=== PATIENT | female | born 1945 | race Two or more races ===

== ENCOUNTER 2025-02-01 06:45 | Inpatient (IN) | payer OTHER ==
[~2025-02-01] VITALS: Ht 162.6 cm; Wt 78.6 kg
--- NOTE | 2025-02-01 07:13 | ED.PDOC ---
SOB-HPI HPI Comments 79 year old female with PMHx COPD, HTN presents to the ED with a chief compliant of shortness of breath onset 3 days. Patient states she began experiencing shortness of breath as well as cough, generalized weakness, nausea/vomiting, sweats, dizziness 3 days ago, worsened this morning. Upon ED arrival 02 sat was 90% on RA, was placed on O2. Denies fever, diarrhea, abdominal pain, headache hematuria, hematemesis, dysuria, sore throat, chest pain. No other symptoms or modifying factors present at this time. Chief Complaint: Shortness of Breath Time Seen by MD: 07:05 Reviewed notes: Medications, Allergies Information Source: Patient Mode of Arrival: Ambulatory Severity: Moderate Timing: Days Duration: Since onset Context: At Rest History of: COPD Prehospital treatment: None Modifying Factors: Nothing Associated Signs and Symptoms: Cough If cough with SOB: Non-Productive Past Medical History PAST MEDICAL HISTORY: COPD, HTN Surgical History: Hysterectomy Surgical History (Other): cataract surgery TREASURY SPECIALIST History: No Pertinent TREASURY SPECIALIST History Family History Family History: Family hx of Cancer Social History Smoker: Cigarettes Alcohol: Denies ETOH Use Drugs: Denies Drug Use Lives In: Home Constitutional: reports: sweats, weakness; denies: chills, diaphoresis, fatigue, fever, malaise, others EENTM: denies: blurred vision, double vision, ear bleeding, ear discharge, ear drainage, ear pain, ear ringing, eye pain, eye redness, hearing loss, mouth pain, mouth swelling, nasal discharge, nose bleeding, nose congestion, nose pain, photophobia, tearing, throat pain, throat swelling, voice changes, others Respiratory: reports: cough, shortness of breath; denies: hemoptysis, orthopnea, SOB at rest, SOB with excertion, stridor, wheezing, others Cardiovascular: denies: chest pain, dizzy spells, diaphoresis, Dyspnea on exertion, edema, irregular heart beat, left arm pain, lightheadedness, palpitations, PND, syncope, others Gastrointestinal: reports: nausea, vomiting; denies: abdomen distended, a bdominal pain, blood streaked bowels, constipated, diarrhea, dysphagia, difficulty swallowing, hematemesis, melena, poor appetite, poor fluid intake, rectal bleeding, rectal pain, others Genitourinary: denies: abnormal vagina bleeding, burning, dyspareunia, dysuria, flank pain, frequency, hematuria, incontinence, pain, , vagina discharge, urgency, others Neurological: reports: dizziness, weakness; denies: fainting, headache, left sided numbness, left sided weakness, numbness, paresthesia, pre-existing deficit, right sided numbness, right sided weakness, seizure, speech problems, tingling, tremors, others Musculoskeletal: denies: back pain, gout, joint pain, joint swelling, muscle pain, muscle stiffness, neck pain, others Integumetry: denies: bruises, change in color, change in hair/nails, dryness, laceration, lesions, lumps, rash, wounds, others Allergic/Immunocompromised: denies: Difficulty Healing, Frequent Infections, Hives, Itching, others Hematologic/Lymphatic: denies: anemia, blood clots, easy bleeding, easy bruising, swollen glands, others Endocrine: denies: excessive hunger, excessive sweating, excessive thirst, excessive urination, flushing, intolerance to cold, intolerance to heat, unexplained weight gain, unexplained weight loss, others Psychiatric: denies: anxiety, bipolar disorder, depression, hopeless, panic disorder, schizophrenia, sleepless, suicidal, others All Other Systems: Reviewed and Negative Physical Exam General Appearance: Moderate Distress HEENT: Normal ENT Inspection, Pharynx Normal, TMs Normal Neck: Full Range of Motion, Non-Tender, Normal, Normal Inspection Respiratory: Chest Non-Tender, Decreased Breath Sounds (Left side of the lung mcfadden), No Accessory Muscle Use, Respiratory Distress, Wheezing Cardiovascular: No Edema, No JVD, No Murmur, No Gallop, Tachycardia Breast Exam: Deferred Gastrointestinal: No Organomegaly, Non Tender, No Pulsatile Mass, Normal Bowel Sounds, Soft Genitalia: Deferred Pelvic: Deferred Rectal: Deferred Extremities: No calf tenderness, Normal capillary refill, Normal inspection, Normal range of motion, Non-tender, No pedal edema Musculoskeletal : Apperance: Normal Neurologic: Alert, field care advocate II-XII nml as Tested, No Motor Deficits, Normal Affect, Normal Mood, No Sensory Deficits Cerebellar Function: Normal Reflexes: Normal Skin: Dry, Normal Color, Warm Lymphatic: No Adenopathy EKG EKG : Pulse Rate (adult): 104 Cardiac Rhythm: ST Was a procedure done? Was a procedure done?: No Differential Dx Differential Diagnosis: Asthma, Bronchitis, CHF, COPD, Myocardial infarction, Pneumonia X-Ray, Labs, Meds, VS Vital Signs Date Time Temp Pulse Resp B/P (MAP) Pulse Ox O2 Delivery O2 Flow Rate FiO2 02/01/25 07:30 18 95 Nasal Cannula* 2 28 02/01/25 07:13 104 02/01/25 07:04 104 02/01/25 06:51 98.9 116 22 120/63 90 98.9 Lab Test 02/01/25 08:30 02/01/25 07:30 Range/Units Troponin I High Sensitivity Pending 892 *H </=34 ng/L White Blood Count 19.3 H 4.4-10.8 10^3/uL Red Blood Count 4.49 4.0-5.20 10^6/uL Hemoglobin 13.5 12.2-16.2 g/dL Hematocrit 39.3 36.0-46.0 % Mean Corpuscular Volume 87.5 80.0-100.0 fL Mean Corpuscular Hemoglobin 30.1 28.0-32.0 pg Mean Corpuscular Hemoglobin Concent 34.4 32.0-36.0 g/dL Red Cell Distribution Width 14.2 11.8-14.3 % Platelet Count 298 140-450 10^3/uL Mean Platelet Volume 8.8 6.9-10.8 fL Neutrophils (%) (Auto) 92.0 H 37.0-80.0 % Lymphocytes (%) (Auto) 3.1 L 10.0-50.0 % Monocytes (%) (Auto) 4.8 0.0-12.0 % Eosinophils (%) (Auto) 0.0 0.0-7.0 % Basophils (%) (Auto) 0.1 0.0-2.0 % Neutrophils # (Auto) 17.8 H 1.6-8.6 10 ^3/uL Lymphocytes # (Auto) 0.6 0.4-5.4 10 ^3/uL Monocytes # (Auto) 0.9 0-1.3 10 ^3/uL Eosinophils # (Auto) 0 0-0.8 10 ^3/uL Basophils # (Auto) 0 0-0.2 10 ^3/uL Nucleated Red Blood Cells 0.0 % Sodium Level 140 136-145 mmol/L Potassium Level 2.9 L 3.5-5.1 mmol/L Chloride Level 101 98-107 mmol/L Carbon Dioxide Level 27 20-31 mmol/L Anion Gap 12 5-15 Blood Urea Nitrogen 22 9-23 mg/dL Creatinine 1.19 H 0.550-1.02 mg/dL Glomerular Filtration Rate Calc 47 >90 mL/min BUN/Creatinine Ratio 18.5 10.0-20.0 Serum Glucose 140 H 74-106 mg/dL Calcium Level 9.1 8.7-10.4 mg/dL B-Type Natriuretic Peptide 406.90 0-100 pg/mL Current Medications Medications (Trade) Dose Ordered Sig/Caleb Route Start Time Stop Time Status Last Admin Methylprednisolone Sodium Succinate (Solu Medrol) 125 mg ONCE ONCE IV 02/01/25 07:15 02/01/25 07:16 DC 02/01/25 07:15 Ipratropium Gerry (Atrovent Medneb) 1 mg ONCE ONCE N 02/01/25 07:15 02/01/25 07:16 DC 02/01/25 07:29 Albuterol (Ventolin Medneb) 20 mg ONCE ONCE [facility] 02/01/25 07:15 02/01/25 07:16 DC 02/01/25 07:30 IMPRESSION: 1. Left upper and lower lung zone consolidation concerning for pneumonia in the appropriate clinical setting. The patient was given Solu-Medrol 125 mg IV push. The patient was given a continuous breathing treatment of albuterol and Atrovent. Because of the findings on the chest x-ray as well as the elevated white blood cell count of 19.3, we are starting the patient on vancomycin IV piggyback The patient is also being started on Levaquin IV piggyback The patient's 1st troponin level came back at 892 The creatinine is 1.19. The patient is hypokalemic at 2.9 The patient is being given potassium p.o. as well as a K rider to address the hypokalemia The BNP is 406.9 At this time we did do blood cultures x2 The lactic acid level is pending. After blood cultures are drawn, the patient will receive the antibiotics The patient was also given normal saline per sepsis protocol The patient will be admitted at this time. We did speak with [facility] and they have given us authorization for admission because the patient is considered to be unstable for transfer. A cardiology consult will also be obtained. The patient is also being started on Plavix 75 mg p.o. The patient has an authorization number from [facility]. The authorization #[id number] Images Reviewed?: Images reviewed and evaluated by me Time of 1ST Reevaluation: 07:35 Reevaluation 1ST: Unchanged Patient Education/Counseling: Diagnosis, Treatment, Prognosis Family Education/Counseling: No Family Present SEPSIS Sepsis Screen Date sepsis recognized/suspect: Feb 01, 2025 Time Sepsis recognized/suspect: 653 Recent Procedure: No On Antibiotic Therapy: No Respiratory Rate >20: No Heart Rate >90: No Temp<36 C (96.8 F) or >38.3 C: No SBP <90 or MAP <65 mmHG: No New Acute Mental Status Change: No Is the patient on CPAP, BIPAP,: No Physician Orders Chest Portable (02/01/25 07:09) Urinalysis (02/01/25 07:09) Heplock Iv (02/01/25 07:09) Business Resiliency Manager (02/01/25 07:09) Blood Pressure (02/01/25 07:09) Pulse Oximetry (02/01/25 07:09) Electrocardigram (02/01/25 08:09) Electrocardigram (02/01/25 10:09) Med Neb Initial Treatment (02/01/25 07:09) Troponin-I Hs (02/01/25 08:09) Troponin-I Hs (02/01/25 10:09) Aspirin Tablet (02/01/25 09:30) Potassium Chl 20meq/100ml (02/01/25 09:30) Potassium Er Tablet (Klor-Con Tablet) (02/01/25 09:30) Clopidogrel Bisulfate (Plavix) (02/02/25 10:00) Echo 2d Mode Cardiac Dop (02/01/25 09:20) Blood Culture (02/01/25:25) Lactic Acid W/ Reflex Order (02/01/25 09:25) Sodium Chloride 0.9% (02/01/25 09:30) Vancomycin (02/01/25 09:30) Levofloxacin Levaquin (02/01/25 09:30) Vital Signs Date Time Temp Pulse Resp B/P (MAP) Pulse Ox O2 Delivery O2 Flow Rate FiO2 02/01/25 07:30 18 95 Nasal Cannula* 2 28 02/01/25 07:13 104 02/01/25 07:04 104 02/01/25 06:51 98.9 116 22 120/63 90 98.9 Laboratory Tests Test 02/01/25 07:30 White Blood Count 19.3 10^3/uL (4.4-10.8) H Medications Medications Dose Ordered Sig/Caleb Route Start Time Stop Time Status Last Admin Dose Admin Albuterol 20 mg ONCE ONCE N 02/01/25 07:15 02/01/25 07:16 DC 02/01/25 07:30 Ipratropium Gerry 1 mg ONCE ONCE [facility] 02/01/25 07:15 02/01/25 07:16 DC 02/01/25 07:29 Methylprednisolone Sodium Succinate 125 mg ONCE ONCE IV 02/01/25 07:15 02/01/25 07:16 DC 02/01/25 07:15 Departure 1 Departure Time of Disposition: 09:28 Impression: Primary Impression: Sepsis Qualified Codes: A41.9 - Sepsis, unspecified organism; R65.20 - Severe sepsis without septic shock; N17.1 - Acute kidney failure with acute cortical necrosis Additional Impressions: Left lower lobe pneumonia Qualified Codes: J18.9 - Pneumonia, unspecified organism Hypokalemia Disposition: ADMITTED INPATIENT Admit to: [facility] Condition: Fair Critical Care Note Critical Care Time?: Yes (45 min-critical care time only) Stability Stability form required: Yes Unstable for transfer: Telemetry monitoring (Telemetry monitoring required), ED Physician Assesment (Clinical assesment) Heart Score Heart Score: Heart Score Response (Comments) Value History N/A 0 EKG N/A 0 Age N/A 0 Risk Factors N/A 0 Troponin N/A 0 Total 0 I personally scribed for NADIRA HOUSTON MD ([email or web address]) on 02/01/25 at 07:13. Electronically submitted by Delilah Hines ([email or web address]). I personally scribed for NADIRA HOUSTON MD ([email or web address]) on 02/01/25 at 08:36. Electronically submitted by Delilah Hines ([email or web address]). NADIRA HOUSTON MD Feb 01, 2025 07:13
[2025-02-01] MEDS: methylPREDNISolone SOD SUCC 125 MG/2 ML VL IV ONE (07:15)
--- NOTE | 2025-02-01 07:15 | ECG ---
[facility] Test Date: 2025-02-01 Test Time: 07:04:23 Pat Name: BRIT FAGAN Department: ED Room: [address] [place] [address] Gender: F Child Life Therapist: IVANA : 1945 Requested By: NADIRA HOUSTON Order Number: [id number] Reading MD: Nakul Yousif Measurements Intervals [place] Rate: 104 P: 87 OR: 131 QRS: 76 QRSD: 76 T: 71 QT: 360 QTc: 474 Interpretive Statements Sinus tachycardia Minimal ST depression, inferior leads Electronically Signed On 02-01-2025 18:01:50 PST by Nakul Yousif Please click the below link to view image of tracing.
[2025-02-01] MEDS: IPRATROPIUM BROM 0.5 MG/2.5ML INH SOL HHN ONE (07:29)
[2025-02-01] MEDS: ALBUTEROL SULF 2.5 MG/0.5ML(0.5%) NEB SOLN HHN ONE (07:30)
[2025-02-01 07:50] LABS: Hematocrit 39.3 % (36.0-46.0); Hemoglobin 13.5 g/dL (12.2-16.2); Mean Corpuscular Hemoglobin 30.1 pg (28.0-32.0); Mean Corpuscular Volume 87.5 fL (80.0-100.0); Nucleated Red Blood Cells % 0.0 %
[2025-02-01 07:55] LABS: Chloride 101 mmol/L (98-107); Sodium 140 mmol/L (136-145)
[2025-02-01 07:56] LABS: Anion Gap 12 (5-15); Calcium 9.1 mg/dL (8.7-10.4); Carbon Dioxide 27 mmol/L (20-31)
[2025-02-01 07:59] LABS: Potassium 2.9 mmol/L (3.5-5.1)
[2025-02-01 08:01] LABS: BUN/Creatinine Ratio 18.5 (10.0-20.0); Blood Urea Nitrogen 22 mg/dL (9-23)
[2025-02-01 08:02] LABS: Glucose 140 mg/dL (74-106)
--- NOTE | 2025-02-01 08:05 | DVH ---
CHEST RADIOGRAPH Indication: Shortness of breath. Technique: Single frontal view of the chest was obtained. Comparison: None FINDINGS: Lines and Tubes: None Lungs: Left upper and lower lung zones consolidation noted. Pleura: No effusion. No pneumothorax. Cardiomediastinal contours: Unremarkable Bones: No acute osseous abnormality. IMPRESSION: 1. Left upper and lower lung zone consolidation concerning for pneumonia in the appropriate clinical setting.
[2025-02-01] MEDS: POTASSIUM CHL 20MEQ/100ML 100 ML IV ONE (09:30)
[2025-02-01] MEDS: VANCOMYCIN 1GM/250ML KIT 250 ML IV ONE (09:36)
[2025-02-01] MEDS: SODIUM CHLORIDE 0.9% 1,550 ML IV ONE (09:37)
[2025-02-01 10:44] LABS: Urine Amorphous Crystal FEW /hpf (None Seen); Urine Budding Yeast OCCASIONAL /hpf (None Seen); Urine Protein, UAD 1+ (Negative)
[2025-02-01 11:04] LABS: Lactic Acid w/Reflex 6.8 mmol/L (0.4-2.0)
[2025-02-01] MEDS: POTASSIUM CHL 20 Meq TABLET PO ONE ×2 (12:20→18:20)
[2025-02-01] MEDS: NICOTINE 21MG/24 HR TOPICAL PATCH TD ONE (13:55)
[2025-02-01] MEDS ORDERED: LISI10TA34 PO (14:40)
[2025-02-01] MEDS ORDERED: CITA-73 PO (14:40)
[2025-02-01] MEDS ORDERED: MORPHINE SULFATE INJ 2 MG/ml SYRG IV PRN (14:45)
[2025-02-01] MEDS ORDERED: DOCUSATE SOD 100 MG CAP PO PRN (14:45)
[2025-02-01] MEDS ORDERED: ONDANSETRON HCL 4 MG/2 ML VIAL IV PRN (14:45)
[2025-02-01] MEDS ORDERED: NITROGLYCERIN 0.4 MG SL TAB SL PRN (14:45)
[2025-02-01 14:50] VITALS: BP 134/64; PULSE 93; RESP 30; TEMP 97.8; O2SAT 94
--- NOTE | 2025-02-01 15:24 | DVHHP2 ---
History of Present Illness Reason for Visit: Shortness of breath History of Present Illness Cindy Gibson is a 79-year-old female with past medical history of hypertension, and COPD who came to the hospital for shortness of breath. Patient states she has been becoming more fatigued over the last 3 months. Last Friday she was in her bathtub and she was too weak to get out of the tub. She had to call her son who lives on the same property but in a different house to come and help her out of the tub. He wanted her to come to the hospital at that time, but she refused. Yesterday her fatigue and shortness of breath was continuing to worsen and her family was able to convince her to go to the hospital. Cardiovascular: HTN Pulmonary: COPD Past Surgical History: Cataract Removal, Hysterectomy Smoke: 1 pack per day ALCOHOL: none Drugs: None Lives: Alone Domestic Violence: Neg Review of Systems Constitutional: Yes: Weakness, Malaise; No: Fever, Chills, Sweats, Other Eyes: No: Pain, Vision change, Conjunctivae inflammation, Eyelid inflammation, Other, Redness ENT: No: Ear pain, Ear discharge, Nose pain, Nose discharge, Nose congestion, Mouth pain, Mouth swelling, Throat pain, Throat swelling, Other Respiratory: Cough, Shortness of breath, SOB with excertion; No: Dry, Wheezing, Hemoptysis, Pleuritic Pain, Sputum, Wheezing, Other Cardiovascular: No: Chest Pain, Palpitations, Orthopnea, Paroxysmal Noc. Dyspnea, Edema, Lt Headedness, Other Gastrointestinal: No: Nausea, Vomiting, Abdominal Pain, Diarrhea, Constipation, Melena, Hematochezia, Other Genitourinary: No Dysuria, No Frequency, No Incontinence, No Hematuria, No Retention, No Other Musculoskeletal: No: other, neck pain, shoulder pain, arm pain, back pain, hand pain, leg pain, foot pain Skin: No: Rash, Lesions, Jaundice, Bruising, Other Neurological: No: Weakness, Numbness, Incoordination, Change in speech, C onfusion, Seizures, Other Allergies: Coded Allergies: Penicillins (Verified Allergy, Unknown, 02/01/25) Medications Current Medications Medications Dose Ordered Sig/Caleb Route Start Time Stop Time Status Last Admin Dose Admin Clopidogrel Bisulfate 75 mg DAILY PO 02/02/25 10:00 Acetaminophen/ Hydrocodone Bitart 1 tab Q4HP PRN PO 02/01/25 14:45 UNV Ondansetron HCl 4 mg Q4HP PRN IV 02/01/25 14:45 UNV Docusate Sodium 100 mg BIDPRN PRN PO 02/01/25 14:45 UNV Acetaminophen 650 mg Q6HP PRN PO 02/01/25 14:45 UNV Nitroglycerin 0.4 mg Q5MINP PRN SL 02/01/25 14:45 UNV Morphine Sulfate 2 mg Q30M PRN IV 02/01/25 14:45 UNV Ceftriaxone Sodium 50 ml @ 100 mls/hr DAILY@09 IV 02/02/25 09:00 UNV Azithromycin 250 ml @ 125 mls/hr DAILY IV 02/02/25 10:00 UNV Methylprednisolone Sodium Succinate 40 mg BID IV 02/01/25 22:00 UNV Ipratropium [place] 0.5 mg Q6HWA NEB 02/01/25 18:00 UNV Albuterol 2.5 mg Q6HWA NEB 02/01/25 18:00 UNV Patient Own Medication 1 tab DAILY PO 02/02/25 10:00 UNV Patient Own Medication 1 tab DAILY PO 02/02/25 10:00 UNV Exam Vital Signs Vital Signs Date Time Temp Pulse Resp B/P (MAP) Pulse Ox O2 Delivery O2 Flow Rate FiO2 02/01/25 13:35 97.8 93 30 134/63 (86) 94 97.8 02/01/25 07:30 Nasal Cannula* 2 28 General Appearance: Alert, Oriented X3, Cooperative, moderate distress HEENT: Atraumatic, PERRLA, Other (muccous membr dry) Respiratory: Other (Diminished breath sounds) Cardiovascular: Regular rate, Normal S1, Normal S2, No murmurs Abdominal: Normal bowel sounds, Soft, No tenderness Extremities: No clubbing, No cyanosis, No edema, Normal pulses, No tenderness/swelling Skin: No rashes, No breakdown, No significant lesion Neuro: Normal gait, Normal speech, Strength at 5/5 X4 ext, Normal tone Psych/Mental Status: Mental status NL, Mood NL Labs/Xrays Labs Test 02/01/25 12:05 02/01/25 10:49 02/01/25 07:30 Range/Units Lactic Acid Level 5.0 *H 0.4-2.0 mmol/L Troponin I High Sensitivity 630 *H </=34 ng/L Urine Color Light-orange Yellow Urine Clarity Turbid H Clear Urine pH 5.5 5.0-9.0 Urine Specific [place] 1.022 1.001-1.035 Urine Protein 1+ H Negative Urine Ketones Negative Negative Urine Blood 1+ H Negative /uL Urine Nitrite 1+ H Negative Urine Bilirubin Negative Negative Urine Urobilinogen Normal Negative mg/dL Urine Leukocyte Esterase Negative Negative /uL Urine RBC 1 0 - 4 /hpf Urine Microscopic WBC 3 0-5 /HPF Urine Squamous Epithelial Cells Few <5 /hpf Urine Amorphous Crystals Few None Seen /hpf Urine Bacteria Many H None Seen /hpf Urine Hyaline Casts Few 0 - 2 /lpf Urine Mucus Few None Seen Urine Yeast (Budding) Occasional None Seen /hpf Urine Glucose Normal Normal mg/dL White Blood Count 19.3 H 4.4-10.8 10^3/uL Red Blood Count 4.49 4.0-5.20 10^6/uL Hemoglobin 13.5 12.2-16.2 g/dL Hematocrit 39.3 36.0-46.0 % Mean Corpuscular Volume 87.5 80.0-100.0 fL Mean Corpuscular Hemoglobin 30.1 28.0-32.0 pg Mean Corpuscular Hemoglobin Concent 34.4 32.0-36.0 g/dL Red Cell Distribution Width 14.2 11.8-14.3 % Platelet Count 298 140-450 10^3/uL Mean Platelet Volume 8.8 6.9-10.8 fL Neutrophils (%) (Auto) 92.0 H 37.0-80.0 % Lymphocytes (%) (Auto) 3.1 L 10.0-50.0 % Monocytes (%) (Auto) 4.8 0.0-12.0 % Eosinophils (%) (Auto) 0.0 0.0-7.0 % Basophils (%) (Auto) 0.1 0.0-2.0 % Neutrophils # (Auto) 17.8 H 1.6-8.6 10 ^3/uL Lymphocytes # (Auto) 0.6 0.4-5.4 10 ^3/uL Monocytes # (Auto) 0.9 0-1.3 10 ^3/uL Eosinophils # (Auto) 0 0-0.8 10 ^3/uL Basophils # (Auto) 0 0-0.2 10 ^3/uL Nucleated Red Blood Cells 0.0 % Sodium Level 140 136-145 mmol/L Potassium Level 2.9 L 3.5-5.1 mmol/L Chloride Level 101 98-107 mmol/L Carbon Dioxide Level 27 20-31 mmol/L Anion Gap 12 5-15 Blood Urea Nitrogen 22 9-23 mg/dL Creatinine 1.19 H 0.550-1.02 mg/dL Glomerular Filtration Rate Calc 47 >90 mL/min BUN/Creatinine Ratio 18.5 10.0-20.0 Serum Glucose 140 H 74-106 mg/dL Calcium Level 9.1 8.7-10.4 mg/dL B-Type Natriuretic Peptide 406.90 0-100 pg/mL CHEST RADIOGRAPH FINDINGS: Lines and Tubes: None Lungs: Left upper and lower lung zones consolidation noted. Pleura: No effusion. No pneumothorax. Cardiomediastinal contours: Unremarkable Bones: No acute osseous abnormality. IMPRESSION: 1. Left upper and lower lung zone consolidation concerning for pneumonia in the appropriate clinical setting. SEPSIS Sepsis Screen Date sepsis recognized/suspect: Feb 01, 2025 Time Sepsis recognized/suspect: 653 Recent Procedure: No On Antibiotic Therapy: No Respiratory Rate >20: No Heart Rate >90: No Temp<36 C (96.8 F) or >38.3 C: No SBP <90 or MAP <65 mmHG: No New Acute Mental Status Change: No Is the patient on CPAP, BIPAP,: No Physician Orders Chest Portable (02/01/25 07:09) Heplock Iv (02/01/25 07:09) Whizzer Operator (02/01/25 07:09) Blood Pressure (02/01/25 07:09) Pulse Oximetry (02/01/25 07:09) Electrocardigram (02/01/25 08:09) Electrocardigram (02/01/25 10:09) Med Neb Initial Treatment (02/01/25 07:09) Clopidogrel Bisulfate (Plavix) (02/02/25 10:00) Echo 2d Mode Cardiac Dop (02/01/25 09:20) Blood Culture (02/01/25 09:25) * Cardiology Consult (02/01/25 14:33) Admit (02/01/25 14:35) Code Status (02/01/25 14:35) Hydrocodone-Acet 5/325mg Tab ([place] 5/32 (02/01/25 14:45) Ondansetron Hcl (Zofran) (02/01/25 14:45) Docusate Sodium Capsule (Colace Capsule) (02/01/25 14:45) Complete Blood Count (02/02/25 04:00) Comprehensive Metabolic Panel (02/02/25 04:00) Cardiac Diet-2gna,Lofat,Lochol (02/01/25 Dinner) Condition: Serious (02/01/25 14:35) Acetaminophen Tablet (Tylenol Tablet) (02/01/25 14:45) Nitroglycerin Sublingual (Ntrostat Subli (02/01/25 14:45) Morphine Sulfate Injection (02/01/25 14:45) Stat Ekg For Chest Pain (02/01/25 14:35) Notify Md Of Changes From Base (02/01/25 14:35) Pad Making Machine Operator For 24 Hours (02/01/25 14:35) Emergency Dysrhythmia Protocol (02/01/25 14:35) Rhythm Strips Once Every Shift (02/01/25 14:35) Oxygen By Nasal Cannula (02/01/25 14:35) Ceftriaxone 1gm/50ml (Rocephin) (02/02/25 09:00) Azithromycin 500mg/ 250ml (Zithromax 50 (02/02/25 10:00) Potassium (02/01/25 16:00) Magnesium (02/01/25 16:00) Methylprednisolone Sod Succ (Solu Medrol (02/01/25 22:00) Ipratropium Medneb (Atrovent Medneb) (02/01/25 18:00) Albuterol Medneb (Ventolin Medneb) (02/01/25 18:00) (Nf) Citalopram Hydrobromide (02/02/25 10:00) (Nf) Lisinopril (02/02/25 10:00) Vital Signs Date Time Temp Pulse Resp B/P (MAP) Pulse Ox O2 Delivery O2 Flow Rate FiO2 02/01/25 13:35 97.8 93 30 134/63 (86) 94 97.8 02/01/25 07:30 18 95 Nasal Cannula* 2 28 02/01/25 07:13 104 02/01/25 07:04 104 02/01/25 06:51 98.9 116 22 120/63 90 98.9 Laboratory Tests Test 02/01/25 07:30 02/01/25 10:03 02/01/25 12:05 White Blood Count 19.3 10^3/uL (4.4-10.8) H Lactic Acid Level 6.8 mmol/L (0.4-2.0) *H 5.0 mmol/L (0.4-2.0) *H Medications Medications Dose Ordered Sig/Caleb Route Start Time Stop Time Status Last Admin Dose Admin Albuterol 20 mg ONCE ONCE HHN 02/01/25 07:15 02/01/25 07:16 DC 02/01/25 07:30 20 MG Aspirin 162 mg ONCE ONCE PO 02/01/25 09:30 02/01/25 09:59 DC 02/01/25 09:30 162 MG Ipratropium [place] 1 mg ONCE ONCE HHN 02/01/25 07:15 02/01/25 07:16 DC 02/01/25 07:29 1 MG Levofloxacin/ Dextrose 100 ml @ 100 mls/hr ONCE ONCE IV 02/01/25 09:30 02/01/25 10:29 DC 02/01/25 09:30 100 MLS/HR Methylprednisolone Sodium Succinate 125 mg ONCE ONCE IV 02/01/25 07:15 02/01/25 07:16 DC 02/01/25 07:15 125 MG Nicotine 1 patch ONCE ONCE TD 02/01/25 13:45 02/01/25 13:46 DC 02/01/25 13:55 1 PATCH Potassium Chloride 40 meq ONCE ONCE PO 02/01/25 09:30 02/01/25 09:59 DC 02/01/25 12:20 40 MEQ Sodium Chloride 1,550 ml @ 1,550 mls/hr ONCE ONCE IV 02/01/25 09:30 02/01/25 10:29 DC 02/01/25 09:37 1,550 MLS/HR Vancomycin HCl 250 ml @ 250 mls/hr ONCE ONCE IV 02/01/25 09:30 02/01/25 10:29 DC 02/01/25 09:36 250 MLS/HR Assessment/Plan Assessment/Plan Assessment: Left lower lobe pneumonia, Elevated troponin, Hypokalemia, Hyperglycemia, Lactic acidosis, COPD, Hypertension, Plan: Admit to Tele, Cardiology consult, IV antibiotics, IV hydration, Breathing treatments, IV steroids, TSH, Lipid panel, A1c, D-dimer, Start ASA, Therapeutic Lovenox, Home medications reconciled, Plan discussed with: Patient My Orders Orders - ROBBY CHUCRHILL SERVICE TECHNICIAN Procedure Category Date Status Time * Cardiology Consult CONS 02/01/25 Transmitted 14:33 Admit ADMIT 02/01/25 Transmitted 14:35 Code Status CODE 02/01/25 Transmitted 14:35 Hydrocodone-Acet PHA 02/01/25 Logged 5/325mg Tab ([place] 14:45 Ondansetron Hcl PHA 02/01/25 Logged (Zofran) 14:45 Docusate Sodium PHA 02/01/25 Logged Capsule (Colace 14:45 Complete Blood Count LAB 02/02/25 Verified 04:00 Comprehensive LAB 02/02/25 Verified Metabolic Panel 04:00 Cardiac DIET 02/01/25 Transmitted Diet-2gna,Lofat,Lochol Dinner Condition: Serious BRIGHT 02/01/25 In Process 14:35 Acetaminophen Tablet PHA 02/01/25 Logged (Tylenol Tablet) 14:45 Nitroglycerin PHA 02/01/25 Logged Sublingual (Ntrostat 14:45 Morphine Sulfate PHA 02/01/25 Logged Injection 14:45 Stat Ekg For Chest [facility] 02/01/25 In Process Pain 14:35 Notify Of Changes [facility] 02/01/25 In Process From Base 14:35 Pad Making Machine Operator For [facility] 02/01/25 In Process 24 Hours 14:35 Emergency Dysrhythmia [facility] 02/01/25 In Process Protocol 14:35 Rhythm Strips Once [facility] 02/01/25 In Process Every Shift 14:35 Oxygen By Nasal RT 02/01/25 Transmitted Cannula 14:35 Ceftriaxone 1gm/50ml PHA 02/02/25 Logged (Rocephin) 09:00 Azithromycin 500mg/ PHA 02/02/25 Logged 250ml (Zithromax 50 10:00 Potassium LAB 02/01/25 Logged 16:00 Magnesium LAB 02/01/25 Logged 16:00 Methylprednisolone PHA 02/01/25 Logged Sod Succ (Solu Medrol 22:00 Ipratropium Medneb PHA 11/18/25 Logged (Atrovent Medneb) 18:00 Albuterol Medneb PHA 02/01/25 Logged (Ventolin Medneb) 18:00 (Nf) Citalopram PHA 02/02/25 Logged Hydrobromide 10:00 (Nf) Lisinopril PHA 02/02/25 Logged 10:00 Date of Service: Feb 01, 2025 Billing Provider: ROBBY CHURCHILL Common Visit Codes: [id number] INP/OBS CARE (HIGH) ROBBY CHURCHILL Feb 01, 2025 15:24
[2025-02-01] MEDS: SODIUM CHLORIDE 0.9% 1,000 ML IV ONE (15:30)
[2025-02-01 15:47] LABS: Triglycerides 91 mg/dL (< 150)
[2025-02-01 15:50] LABS: Cholesterol 124 mg/dL (< 200); HDL Cholesterol 46 mg/dL (40-59)
--- NOTE | 2025-02-01 15:50 | DVH ---
Exam: CT CHEST WITHOUT CONTRAST Reason for study/Clinical History: Shortness of breath, hypoxic Comparison Study: XY CHEST PORTABLE on DOS: 02/01/25 Exam Date: 02/01/2025 03:21 PM TECHNIQUE: Multidetector CT of the chest was performed from the lung apices to the upper abdomen without the use of intravenous contract. Axial, coronal and sagittal multiplanar reformats were performed. Radiation Dose Information: CT Dose: CTDI volume is 12.8 mGy. Dose-length product is 502 mGy*cm The dose indicators for CT are the volume Computed Tomography (CT) Dose Index (CTDIvol) and the Dose Length Product (DLP), and are measured in units of mGy and mGy-cm, respectively. These indicators are not patient dose, but values generated from the CT scanner acquisition factors. The report includes radiation exposure data for exposures received during this examination. Findings: Lower neck: Unremarkable. Lungs and Pleura: Severe upper lung predominant emphysema. Diffuse left lower lobe opacities and consolidation.. Trace left pleural effusion. Lymph nodes: No mediastinal, hilar, or axillary lymphadenopathy. Cardiovascular and Mediastinum: Trace pericardial effusion. Scattered coronary calcifications. Osseous and soft tissues: No suspicious osseous lesions. Appearing cortical step-off of in the mid-sternum, likely artifactual. Upper abdomen: No acute abnormality in the visualized upper abdomen. Few subcentimeter hypodense lesions in the liver, too small to characterize. Small hiatal hernia. IMPRESSION: Diffuse left lower lobe opacities and consolidation with trace left pleural effusion. Findings are concerning for pneumonia. Severe upper lung predominant emphysema. Trace pericardial effusion. Appearing cortical step-off of in the mid-sternum, likely artifactual. Correlate with focal tenderness.
--- NOTE | 2025-02-01 16:11 | DVHINCON2 ---
Date Seen: Feb 01, 2025 Referring Physician JO Khan Reason for Consultation Elevated trop History of Present Illness This is a 79-year-old female who presented to the emergency room with a chief complaint of shortness of breath for two days. The patient complains of progressive shortness of breath associated with a nonproductive cough and generalized weakness. Denies chest pain, palpitations, diaphoresis, or syncopal events. Upon arrival to the emergency room he was found with a oxygen saturation level of 90% for which she was provided with supplemental oxygenation. During ED admission the patient has gone outside to smoke cigarettes. Significant medical history includes COPD without home O2 dependence, hypertension, thyroid disease, and current cigarette use including 65 pack-years. Past Medical History Past medical history reviewed. No other significant than mentioned above. Past Surgical History Partial hysterectomy Cataract removal Family History Family history reviewed. Not significant for cardiovascular disease. Social History Denies the use of illicit drugs or alcohol. Admits to tobacco use, one pack of cigarettes per day. Allergies: Coded Allergies: Penicillins (Verified Allergy, Unknown, 02/01/25) Home Meds Reported Medications Lisinopril (Lisinopril) 10 Mg Tab, 1 TAB PO DAILY 02/01/25 Citalopram Hydrobromide (Citalopram Hydrobromide) 40 Mg Tab, 1 TAB PO DAILY 02/01/25 Home Meds Home medications reviewed. Current Medications Current Medications Medications (Trade) Dose Ordered Sig/Caleb Route PRN Reason Start Time Stop Time Status Last Admin Clopidogrel Bisulfate (Plavix) 75 mg DAILY PO 02/02/25 10:00 Acetaminophen/ Hydrocodone Bitart ([place] 5/325MG Tab) 1 tab Q4HP PRN PO MODERATE PAIN (4-6 PAIN SCALE) 02/01/25 14:45 Ondansetron HCl (Zofran) 4 mg Q4HP PRN IV NAUSEA / VOMITING 02/01/25 14:45 Docusate Sodium (Colace Capsule) 100 mg BIDPRN PRN PO FOR CONSTIPATION 02/01/25 14:45 Acetaminophen (Tylenol Tablet) 650 mg Q6HP PRN PO PAIN SCALE 1-3 OR TEMP>100.4 02/01/25 14:45 Nitroglycerin (Ntrostat Sublingual) 0.4 mg Q5MINP PRN SL FOR CHEST PAIN 02/01/25 14:45 Morphine Sulfate 2 mg Q30M PRN IV FOR CHEST PAIN 02/01/25 14:45 Ceftriaxone Sodium 50 ml @ 100 mls/hr DAILY@09 IV 02/02/25 09:00 UNV Azithromycin 250 ml @ 125 mls/hr DAILY IV 02/02/25 10:00 Methylprednisolone Sodium Succinate (Solu Medrol) 40 mg BID IV 02/01/25 22:00 Ipratropium [place] (Atrovent Medneb) 0.5 mg Q6HWA [facility] 02/01/25 18:00 Albuterol (Ventolin Medneb) 2.5 mg Q6HWA [facility] 02/01/25 18:00 Citalopram Hydrobromide (CeleXA TABLET) 40 mg DAILY PO 02/02/25 10:00 Lisinopril (Zestril Tablet) 10 mg DAILY PO 02/02/25 10:00 Aspirin 81 mg DAILY PO 02/02/25 10:00 Enoxaparin Sodium (Lovenox) 60 mg Q12HR SC 02/01/25 22:00 Review of Systems Constitutional: Generalized weakness Ears, Nose, & Throat: No symptom reported Eyes: No symptom reported Neurological: No symptoms reported Pulmonary/Respiratory: SOB, nonproductive cough Cardiovascular: No symptom reported Gastrointestinal: No symptom reported Genitourinary: No symptom reported Musculoskeletal: No symptom reported Skin: No symptom reported Psychiatric: No symptom reported Endocrine: No symptom reported Hemotologic/Lymphatic: No symptom reported Vital Signs Vital Signs Date Time Temp Pulse Resp B/P (MAP) Pulse Ox O2 Delivery O2 Flow Rate FiO2 02/01/25 14:50 97.8 93 30 134/64 94 2.0 97.8 02/01/25 07:30 Nasal Cannula* 28 Physical Exam General Appearance: Cooperative. Well developed. Well nourished. In no acute distress Head Exam: Normal inspection Neck Exam: Normal inspection. Non-tender. Normal alignment Pulmonary/Respiratory: Chest non-tender. Coarse sounds to left middle/lower delia Cardiovascular/Chest: Regular rate and rhythm. S1, S2. No murmurs. No JVD. Peripheral Pulses: 2+ Radial (R). 2+ Radial (L). 2+ Pedal (R). 2+ Pedal (L) Abdominal Exam: Normal bowel sounds Ankle Exam: Negative ankle edema Lower extremities: Negative lower extremity edema Neuro/Mental Status: A&O x4. Coherent Thoughts/Psych: Normal thought pattern. Appropriate mood and affect. Good judgement and insight Appearance: In no acute distress Skin Exam: Normal inspection. Normal color. Warm. Dry Labs/Diagnostic Data Labs Test 02/01/25 12:05 02/01/25 10:49 02/01/25 07:30 Range/Units D-Dimer, Quantitative 2.74 H 0.0-0.49 mg/L FEU Lactic Acid Level 5.0 *H 0.4-2.0 mmol/L Troponin I High Sensitivity 630 *H </=34 ng/L Urine Color Light-orange Yellow Urine Clarity Turbid H Clear Urine pH 5.5 5.0-9.0 Urine Specific [place] 1.022 1.001-1.035 Urine Protein 1+ H Negative Urine Ketones Negative Negative Urine Blood 1+ H Negative /uL Urine Nitrite 1+ H Negative Urine Bilirubin Negative Negative Urine Urobilinogen Normal Negative mg/dL Urine Leukocyte Esterase Negative Negative /uL Urine RBC 1 0 - 4 /hpf Urine Microscopic WBC 3 0-5 /HPF Urine Squamous Epithelial Cells Few <5 /hpf Urine Amorphous Crystals Few None Seen /hpf Urine Bacteria Many H None Seen /hpf Urine Hyaline Casts Few 0 - 2 /lpf Urine Mucus Few None Seen Urine Yeast (Budding) Occasional None Seen /hpf Urine Glucose Normal Normal mg/dL White Blood Count 19.3 H 4.4-10.8 10^3/uL Red Blood Count 4.49 4.0-5.20 10^6/uL Hemoglobin 13.5 12.2-16.2 g/dL Hematocrit 39.3 36.0-46.0 % Mean Corpuscular Volume 87.5 80.0-100.0 fL Mean Corpuscular Hemoglobin 30.1 28.0-32.0 pg Mean Corpuscular Hemoglobin Concent 34.4 32.0-36.0 g/dL Red Cell Distribution Width 14.2 11.8-14.3 % Platelet Count 298 140-450 10^3/uL Mean Platelet Volume 8.8 6.9-10.8 fL Neutrophils (%) (Auto) 92.0 H 37.0-80.0 % Lymphocytes (%) (Auto) 3.1 L 10.0-50.0 % Monocytes (%) (Auto) 4.8 0.0-12.0 % Eosinophils (%) (Auto) 0.0 0.0-7.0 % Basophils (%) (Auto) 0.1 0.0-2.0 % Neutrophils # (Auto) 17.8 H 1.6-8.6 10 ^3/uL Lymphocytes # (Auto) 0.6 0.4-5.4 10 ^3/uL Monocytes # (Auto) 0.9 0-1.3 10 ^3/uL Eosinophils # (Auto) 0 0-0.8 10 ^3/uL Basophils # (Auto) 0 0-0.2 10 ^3/uL Nucleated Red Blood Cells 0.0 % Sodium Level 140 136-145 mmol/L Potassium Level 2.9 L 3.5-5.1 mmol/L Chloride Level 101 98-107 mmol/L Carbon Dioxide Level 27 20-31 mmol/L Anion Gap 12 5-15 Blood Urea Nitrogen 22 9-23 mg/dL Creatinine 1.19 H 0.550-1.02 mg/dL Glomerular Filtration Rate Calc 47 >90 mL/min BUN/Creatinine Ratio 18.5 10.0-20.0 Serum Glucose 140 H 74-106 mg/dL Calcium Level 9.1 8.7-10.4 mg/dL B-Type Natriuretic Peptide 406.90 0-100 pg/mL Assessment Sepsis with left-sided pneumonia/UTI Acute on chronic hypoxic respiratory failure NSTEMI, likely type 2 secondary to above Rule out structural heart disease COPD without home O2 dependence Nicotine dependence Hypertension Thyroid disease * Transthoracic echocardiogram completed, pending reading. Preliminary, optimal LV function with mild PAH * Twelve lead electrocardiogram x1 revealed a sinus tachycardia rhythm at 104 bpm with minimal inferior lead changes * Troponin levels peaked at 800s ng/L now trending down Plan/Recommendation (Dr. Rock) The patient is cardiac asymptomatic. Likely NSTEMI type 2 secondary to sepsis given pneumonia and UTI. Transthoracic echocardiogram has been completed and is pending reading at this time. Continue ABX therapy and sepsis protocol per primary care team. Obtain COVID-19 and influenza A&B samples. Initiate Nicotine patch and smoking cessation consult. In the setting of an unremarkable TTE, there is no further cardiac work-up indicated. Kindly call with any questions or concerns. Thank you for allowing us to participate in this patient's care. This medical document was created using an electronic medical record system with voice recognition software and computerized dictation system. Although this document has been carefully reviewed, there might still be some phonetic and typographical errors. Occasional wrong-word or ``sound-alike substitutions may have occurred due to the inherent limitations of voice recognition software. These areas are purely typographical due to imperfections of the software programs and do not reflect any compromise in the patient's medical care. Please read the chart carefully and recognize, using context, where these substitutions have occurred. Plan discussed with: Patient, Other NYHA Physical activity limitations: NA Date of Service: Feb 01, 2025 Billing Provider: DALLAS BALDERAS Cardiology Common Codes: [id number] INP/OBS CARE (High) DALLAS BALDERAS BABBITT SPINNER Feb 01, 2025 16:11
[2025-02-01 16:40] LABS: Potassium 3.2 mmol/L (3.5-5.1)
[2025-02-01 16:45] LABS: Magnesium 1.8 mg/dL (1.6-2.6)
[2025-02-01] MEDS: MAGNESIUM SULFATE 1GM/100ML 100 ML IV SCH (18:40)
[2025-02-01] MEDS: ALBUTEROL SULF 2.5 MG/0.5ML(0.5%) NEB SOLN NEB SCH (19:51)
[2025-02-01] MEDS: IPRATROPIUM BROM 0.5 MG/2.5ML INH SOL NEB SCH (19:51)
[2025-02-01 19:52] VITALS: PULSE 84; RESP 21; O2SAT 96
[2025-02-01 20:10] VITALS: PULSE 81; RESP 25
[2025-02-01 20:58] LABS: COVID19 ANTIGEN SOFIA FIA NEGATIVE (NEGATIVE)
[2025-02-01] MEDS: methylPREDNISolone SOD SUCC 40 MG/ML VL IV SCH (22:08)
[2025-02-01] MEDS: ENOXAPARIN SOD 60 MG/0.6 ML SYRINGE SC SCH (22:08)
--- NOTE | 2025-02-01 23:18 | DVHINCON2 ---
Date Seen: Feb 01, 2025 Referring Physician JO Khan Reason for Consultation Elevated trop History of Present Illness This is a 79-year-old female who with a past medical history of COPD without home O2 dependence, hypertension, thyroid disease, and current cigarette use including 65 pack-years presented to the emergency room with a complaint of shortness of breath for two days. The patient complains of progressive sh ortness of breath associated with a nonproductive cough and generalized weakness. Denies chest pain, palpitations, diaphoresis, or syncopal events. Upon arrival to the emergency room he was found with a oxygen saturation level of 90% for which she was provided with supplemental oxygenation. During ED admission the patient has gone outside to smoke cigarettes. WBC 19.3, D-DIMER 2. 74, K 3.2, TROP 630, LA 5. Chest x-ray shows left upper and lower lung zone consolidation concerning for pneumonia in the appropriate clinical setting. Patient was admitted to the hospital. I am asked to consult on this patient. Past Medical History Past medical history reviewed. No other significant than mentioned above. Past Surgical History Partial hysterectomy Cataract removal Allergies: Coded Allergies: Penicillins (Verified Allergy, Unknown, 02/01/25) Home Meds Reported Medications Lisinopril (Lisinopril) 10 Mg Tab, 1 TAB PO DAILY 02/01/25 Citalopram Hydrobromide (Citalopram Hydrobromide) 40 Mg Tab, 1 TAB PO DAILY 02/01/25 Current Medications Current Medications Medications (Trade) Dose Ordered Sig/Caleb Route PRN Reason Start Time Stop Time Status Last Admin Clopidogrel Bisulfate (Plavix) 75 mg DAILY PO 02/02/25 10:00 Acetaminophen/ Hydrocodone Bitart ([place] 5/325MG Tab) 1 tab Q4HP PRN PO MODERATE PAIN (4-6 PAIN SCALE) 02/01/25 14:45 Ondansetron HCl (Zofran) 4 mg Q4HP PRN IV NAUSEA / VOMITING 02/01/25 14:45 Docusate Sodium (Colace Capsule) 100 mg BIDPRN PRN PO FOR CONSTIPATION 02/01/25 14:45 Acetaminophen (Tylenol Tablet) 650 mg Q6HP PRN PO PAIN SCALE 1-3 OR TEMP>100.4 02/01/25 14:45 Nitroglycerin (Ntrostat Sublingual) 0.4 mg Q5MINP PRN SL FOR CHEST PAIN 02/01/25 14:45 Morphine Sulfate 2 mg Q30M PRN IV FOR CHEST PAIN 02/01/25 14:45 Ceftriaxone Sodium 50 ml @ 100 mls/hr DAILY@09 IV 02/02/25 09:00 UNV Azithromycin 250 ml @ 125 mls/hr DAILY IV 02/02/25 10:00 Methylprednisolone Sodium Succinate (Solu Medrol) 40 mg BID IV 02/01/25 22:00 Ipratropium [place] (Atrovent Medneb) 0.5 mg Q6HWA NEB 02/01/25 18:00 Albuterol (Ventolin Medneb) 2.5 mg Q6HWA NEB 02/01/25 18:00 Citalopram Hydrobromide (CeleXA TABLET) 40 mg DAILY PO 02/02/25 10:00 Lisinopril (Zestril Tablet) 10 mg DAILY PO 02/02/25 10:00 Aspirin 81 mg DAILY PO 02/02/25 10:00 Enoxaparin Sodium (Lovenox) 60 mg Q12HR SC 02/01/25 22:00 Nicotine (Nicoderm 14MG/ 24HR) 1 patch DAILY TD 02/02/25 10:00 Review of Systems Constitutional: Generalized weakness Ears, Nose, & Throat: No symptom reported Eyes: No symptom reported Neurological: No symptoms reported Pulmonary/Respiratory: SOB, nonproductive cough Cardiovascular: No symptom reported Gastrointestinal: No symptom reported Genitourinary: No symptom reported Musculoskeletal: No symptom reported Skin: No symptom reported Psychiatric: No symptom reported Endocrine: No symptom reported Hemotologic/Lymphatic: No symptom reported Vital Signs Vital Signs Date Time Temp Pulse Resp B/P (MAP) Pulse Ox O2 Delivery O2 Flow Rate FiO2 02/01/25 14:50 97.8 93 30 134/64 94 2.0 97.8 02/01/25 07:30 Nasal Cannula* 28 Physical Exam GENERAL: Alert and oriented x 3. No acute distress. EYES: PERRL, EOMI. Anicteric. HENT: Moist mucous membranes. LUNGS: Coarse breath sounds. CARDIOVASCULAR: Regular rate and rhythm. ABDOMEN: Soft, nontender and nondistended. EXTREMITIES: No edema. NEUROLOGIC: No focal neurological deficits. SKIN: Warm, dry. Labs/Diagnostic Data Labs Test 02/01/25 16:03 02/01/25 12:05 02/01/25 10:49 02/01/25 07:30 Range/Units Potassium Level 3.2 L 3.5-5.1 mmol/L Magnesium Level 1.8 1.6-2.6 mg/dL D-Dimer, Quantitative 2.74 H 0.0-0.49 mg/L FEU Lactic Acid Level 5.0 *H 0.4-2.0 mmol/L Troponin I High Sensitivity 630 *H </=34 ng/L Triglycerides Level 91 < 150 mg/dL Cholesterol Level 124 < 200 mg/dL LDL Cholesterol 57 < 100 mg/dL HDL Cholesterol 46 40-59 mg/dL Thyroid Stimulating Hormone (TSH) 0.71 0.55-4.78 uIU/mL Urine Color Light-orange Yellow Urine Clarity Turbid H Clear Urine pH 5.5 5.0-9.0 Urine Specific [place] 1.022 1.001-1.035 Urine Protein 1+ H Negative Urine Ketones Negative Negative Urine Blood 1+ H Negative /uL Urine Nitrite 1+ H Negative Urine Bilirubin Negative Negative Urine Urobilinogen Normal Negative mg/dL Urine Leukocyte Esterase Negative Negative /uL Urine RBC 1 0 - 4 /hpf Urine Microscopic WBC 3 0-5 /HPF Urine Squamous Epithelial Cells Few <5 /hpf Urine Amorphous Crystals Few None Seen /hpf Urine Bacteria Many H None Seen /hpf Urine Hyaline Casts Few 0 - 2 /lpf Urine Mucus Few None Seen Urine Yeast (Budding) Occasional None Seen /hpf Urine Glucose Normal Normal mg/dL White Blood Count 19.3 H 4.4-10.8 10^3/uL Red Blood Count 4.49 4.0-5.20 10^6/uL Hemoglobin 13.5 12.2-16.2 g/dL Hematocrit 39.3 36.0-46.0 % Mean Corpuscular Volume 87.5 80.0-100.0 fL Mean Corpuscular Hemoglobin 30.1 28.0-32.0 pg Mean Corpuscular Hemoglobin Concent 34.4 32.0-36.0 g/dL Red Cell Distribution Width 14.2 11.8-14.3 % Platelet Count 298 140-450 10^3/uL Mean Platelet Volume 8.8 6.9-10.8 fL Neutrophils (%) (Auto) 92.0 H 37.0-80.0 % Lymphocytes (%) (Auto) 3.1 L 10.0-50.0 % Monocytes (%) (Auto) 4.8 0.0-12.0 % Eosinophils (%) (Auto) 0.0 0.0-7.0 % Basophils (%) (Auto) 0.1 0.0-2.0 % Neutrophils # (Auto) 17.8 H 1.6-8.6 10 ^3/uL Lymphocytes # (Auto) 0.6 0.4-5.4 10 ^3/uL Monocytes # (Auto) 0.9 0-1.3 10 ^3/uL Eosinophils # (Auto) 0 0-0.8 10 ^3/uL Basophils # (Auto) 0 0-0.2 10 ^3/uL Nucleated Red Blood Cells 0.0 % Sodium Level 140 136-145 mmol/L Chloride Level 101 98-107 mmol/L Carbon Dioxide Level 27 20-31 mmol/L Anion Gap 12 5-15 Blood Urea Nitrogen 22 9-23 mg/dL Creatinine 1.19 H 0.550-1.02 mg/dL Glomerular Filtration Rate Calc 47 >90 mL/min BUN/Creatinine Ratio 18.5 10.0-20.0 Serum Glucose 140 H 74-106 mg/dL Hemoglobin A1c 5.6 <5.7 % A1C Calcium Level 9.1 8.7-10.4 mg/dL B-Type Natriuretic Peptide 406.90 0-100 pg/mL Assessment Sepsis with left-sided pneumonia/UTI. Acute on chronic hypoxic respiratory failure. NSTEMI, likely type 2 secondary to above. Rule out structural heart disease. 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 Nicotine dependence. Hypertension. Thyroid disease. Plan/Recommendation I agree with your ongoing assessment and care of plan. Patient has been seen by Bisi Ho NP on my behalf, her and I discussed the plan with the patient. Transthoracic echocardiogram completed, pending reading. Preliminary, optimal LV function with mild PAH. Twelve lead electrocardiogram x1 revealed a sinus tachycardia rhythm at 104 bpm with minimal inferior lead changes. Troponin levels peaked at 800s ng/L now trending down. The patient is cardiac asymptomatic. Likely NSTEMI type 2 secondary to sepsis given pneumonia and UTI. Transthoracic echocardiogram has been completed and is pending reading at this time. Continue ABX therapy and sepsis protocol per primary care team. Obtain COVID-19 and influenza A&B samples. Initiate Nicotine patch and smoking cessation consult. In the setting of an unremarkable TTE, there is no further cardiac work-up indicated. Additional plan as per the hospital course. Plan discussed with: Patient NYHA Physical activity limitations: NA Date of Service: Feb 01, 2025 Billing Provider: CORY ABDULLAHI MD Cardiology Common Codes: [id number] INP/OBS CARE (High) Cardiology Consultation Codes: [id number] CONSULT <45MIN CORY ABDULLAHI MD Feb 01, 2025 16:56
[2025-02-02] VITALS (15 sets, daily range): BP systolic 132–133; BP diastolic 71–80; PULSE 71–81; RESP 12–22; TEMP 97.8–98.1; O2SAT 95–99
[2025-02-02 06:54] LABS: Hematocrit 33.5 % (36.0-46.0); Hemoglobin 11.3 g/dL (12.2-16.2); Mean Corpuscular Hemoglobin 29.5 pg (28.0-32.0); Mean Corpuscular Volume 87.4 fL (80.0-100.0); Nucleated Red Blood Cells % 0.1 %
[2025-02-02 07:00] LABS: Alanine Aminotransferase 19 U/L (7-40); Anion Gap 7 (5-15); BUN/Creatinine Ratio 18.9 (10.0-20.0); Blood Urea Nitrogen 17 mg/dL (9-23); Carbon Dioxide 28 mmol/L (20-31); Chloride 106 mmol/L (98-107); Glucose 101 mg/dL (74-106); Magnesium 2.5 mg/dL (1.6-2.6); Potassium 4.3 mmol/L (3.5-5.1); Sodium 141 mmol/L (136-145)
[2025-02-02 07:01] LABS: Bilirubin, Total 0.3 mg/dL (0.2-1.0)
[2025-02-02 07:04] LABS: Albumin 3.1 g/dL (3.2-4.8); Alkaline Phosphatase 125 U/L (46-116); Calcium 8.5 mg/dL (8.7-10.4); Total Protein 5.7 g/dL (5.7-8.2)
[2025-02-02] MEDS: NICOTINE 14 MG/24HR TOPICAL PATCH TD SCH (10:54)
[2025-02-02] MEDS: CLOPIDOGREL BISULFATE 75 MG TAB PO SCH (10:55)
[2025-02-02] MEDS: LISINOPRIL 5 MG TAB PO SCH (10:55)
[2025-02-02] MEDS: CITALOPRAM HYDROBR 20 MG TAB PO SCH (10:55)
--- NOTE | 2025-02-02 11:25 | DVHSR ---
APPROVED REPORT EXAM: Two-dimensional and M-mode echocardiogram with Doppler and color Doppler. Blood Pressure: 120/63 mmHg INDICATION LV assessment RISK FACTORS Height: 5'3", Weight: 140 DIMENSIONS LVDd 3.9 (3.8-5.7cm) LA (2D) 3.5 (1.9-4.0cm) Aortic Root (2.0-3.7cm) LVDs 1.8 (2.5-4.0cm) LA (MM) (1.9-4.0cm) Aortic Cusp Exc (1.5-2.0cm) EF (%) 85.0 (55-70%) Rt. Atrium 3.7 (1.9-4.0cm) Asc. Aorta cm IVSd 0.8 (0.7-1.1cm) RV (D) (1.8-2.4cm) Mitral Valve Mitral Mitral Stenosis E/A ratio 0.0 2D MVA cm2 Aortic Valve Aortic Valve Aortic Stenosis V1 1.34m/s AO Mean GR. mmHg V2 1.65m/s AO Peak GR. 11mmHg LVOT Diameter 2.0 (1.8-2.4cm) Doppler JESSIE 2.55cm2 Tricuspid Valve TR Velocity 2.84m/s RVSP 40mmHg Other Information Quality : Technically Limited Rhythm : Technically limited study due to body habitus. Conclusion NORMAL LV EF AND IS 75% NORMAL VALVES NORMAL RV FUNCTION NO EFFUSION
[2025-02-02] MEDS: AZITHROMYCIN 500MG/250ML 250 ML IV SCH (12:06)
--- NOTE | 2025-02-02 12:24 | DVHPN2 ---
Progress Note Date Seen: Feb 02, 2025 Medical Necessity Reason Pt with a Central, PICC or Fol: No Subjective Patient reports: No new complaints Review of Systems: HEENT:Normal, CVS:Normal, RESPIRATORY:Normal, GI:Normal, :Normal, MSK:Normal, NEURO:Normal Objective vital signs Vital Sign Date Time Temp Pulse Resp B/P (MAP) Pulse Ox O2 Delivery O2 Flow Rate FiO2 02/02/25 10:55 127/77 02/02/25 10:00 92 21 90 02/02/25 08:00 Nasal Cannula* 1 24 02/02/25 08:00 97.6 97.6 Total Intake and Output 02/01/25 02/01/25 02/02/25 15:00 23:00 07:00 Intake Total 200 ml Balance 200 ml medications Current Medications Medications Dose Ordered Sig/Caleb Route Start Time Stop Time Status Last Admin Dose Admin Clopidogrel Bisulfate 75 mg DAILY PO 02/02/25 10:00 02/02/25 10:55 75 MG Acetaminophen/ Hydrocodone Bitart 1 tab Q4HP PRN PO 02/01/25 14:45 Ondansetron HCl 4 mg Q4HP PRN IV 02/01/25 14:45 Docusate Sodium 100 mg BIDPRN PRN PO 02/01/25 14:45 Acetaminophen 650 mg Q6HP PRN PO 02/01/25 14:45 Nitroglycerin 0.4 mg Q5MINP PRN SL 02/01/25 14:45 Morphine Sulfate 2 mg Q30M PRN IV 02/01/25 14:45 Ceftriaxone Sodium 50 ml @ 100 mls/hr DAILY@09 IV 02/02/25 09:00 02/02/25 10:53 100 MLS/HR Azithromycin 250 ml @ 125 mls/hr DAILY IV 02/02/25 10:00 02/02/25 12:06 125 MLS/HR Methylprednisolone Sodium Succinate 40 mg BID IV 02/01/25 22:00 02/02/25 10:54 40 MG Ipratropium [place] 0.5 mg Q6HWA NEB 02/01/25 18:00 02/02/25 06:31 0.5 MG Albuterol 2.5 mg Q6HWA NEB 02/01/25 18:00 02/02/25 06:31 2.5 MG Citalopram Hydrobromide 40 mg DAILY PO 02/02/25 10:00 02/02/25 10:55 40 MG Lisinopril 10 mg DAILY PO 02/02/25 10:00 02/02/25 10:55 10 MG Aspirin 81 mg DAILY PO 02/02/25 10:00 02/02/25 10:55 81 MG Enoxaparin Sodium 60 mg Q12HR SC 02/01/25 22:00 02/02/25 12:09 60 MG Nicotine 1 patch DAILY TD 02/02/25 10:00 02/02/25 10:54 1 PATCH Examination: GENERAL:Normal, HEENT:Normal, NECK:Normal, LUNGS:Normal, LUNGS:Abnormal (on oxygen, rales left side), CVS:Normal, ABDOMEN:Normal, MSK:Normal, SKIN:Normal, NEURO:Normal, :Normal laboratory and microbiology Laboratory Tests 02/02/25 05:21 Test 02/02/25 05:21 Range/Units Serum Glucose 101 74-106 mg/dL Microbiology Date/Time Source Procedure Growth Status 02/01/25 10:14 Blood Blood Culture - Preliminary NO GROWTH AFTER 24 HOURS OF INCUBATION. Resulted Problem List/Assessment/Plan Problem List/Assessment/Plan #1 acute resp failure: cont oxygen #2 sepsis with left pneumonia- gram positive/neg: iv antibiotics #3 copd with exacerbation : bronchodilators #4 htn #5 tobacco abuse: advised to quit, nicotine patch- time spent 12 mins #6 nstemi ?type 2: per cardiology #7 hypokalemia: improved advance care planning- full code- time spent 18 mins unstable for transfer Plan discussed with: Patient, Daughter My Orders My Orders Orders - MONIKA ALANIZ MD Procedure Category Date Status Time Respiratory Culture ROMAN 02/02/25 Verified W/ Gs 12:18 Complete Blood Count LAB 02/03/25 Verified 06:00 Comprehensive LAB 02/03/25 Verified Metabolic Panel 06:00 Chest Portable XY 02/03/25 Verified 06:00 Date of Service: Feb 02, 2025 Billing Provider: MONIKA ALANIZ MD Common Visit Codes: [id number] INP/OBS CARE(HIGH) Secondary Visit Codes: [id number] CHNG SMOKING >10MIN, [id number] CARE PLAN 30 MINUTES MONIKA ALANIZ MD Feb 02, 2025 12:24
--- NOTE | 2025-02-02 21:10 | DVHPN2 ---
Progress Note - Dictate Date Seen: Feb 02, 2025 Medical Necessity Reason Pt with a Central, PICC or Fol: No Subjective Patient was seen and evaluated in follow up. Patient is on 1 LPM NC. WBC 19.9, CA 8.5. Echocardiogram is pending. Telemetry reviewed. vital signs Vital Sign Date Time Temp Pulse Resp B/P (MAP) Pulse Ox O2 Delivery O2 Flow Rate FiO2 02/02/25 17:55 75 18 97 02/02/25 16:51 97.8 132/80 (97) 97.8 02/02/25 15:51 Nasal Cannula* 1 24 Total Intake and Output 02/01/25 02/01/25 02/02/25 15:00 23:00 07:00 Intake Total 200 ml Balance 200 ml medications Current Medications Medications Dose Ordered Sig/Caleb Route Start Time Stop Time Status Last Admin Dose Admin Acetaminophen/ Hydrocodone Bitart 1 tab Q4HP PRN PO 02/01/25 14:45 Ondansetron HCl 4 mg Q4HP PRN IV 02/01/25 14:45 Docusate Sodium 100 mg BIDPRN PRN PO 02/01/25 14:45 Acetaminophen 650 mg Q6HP PRN PO 02/01/25 14:45 Nitroglycerin 0.4 mg Q5MINP PRN SL 02/01/25 14:45 Morphine Sulfate 2 mg Q30M PRN IV 02/01/25 14:45 Ceftriaxone Sodium 50 ml @ 100 mls/hr DAILY@09 IV 02/02/25 09:00 02/02/25 10:53 100 MLS/HR Azithromycin 250 ml @ 125 mls/hr DAILY IV 02/02/25 10:00 02/02/25 12:06 125 MLS/HR Ipratropium [place] 0.5 mg Q6HWA NEB 02/01/25 18:00 02/02/25 17:54 0.5 MG Albuterol 2.5 mg Q6HWA NEB 02/01/25 18:00 02/02/25 17:54 2.5 MG Citalopram Hydrobromide 40 mg DAILY PO 02/02/25 10:00 02/02/25 10:55 40 MG Lisinopril 10 mg DAILY PO 02/02/25 10:00 02/02/25 10:55 10 MG Aspirin 81 mg DAILY PO 02/02/25 10:00 02/02/25 10:55 81 MG Nicotine 1 patch DAILY TD 02/02/25 10:00 02/02/25 10:54 1 PATCH objective GENERAL: Alert and oriented x 3. No acute distress. EYES: PERRL, EOMI. Anicteric. HENT: Moist mucous membranes. LUNGS: Coarse breath sounds. CARDIOVASCULAR: Regular rate and rhythm. ABDOMEN: Soft, nontender and nondistended. EXTREMITIES: No edema. NEUROLOGIC: No focal neurological deficits. SKIN: Warm, dry. laboratory and microbiology Laboratory Tests 02/02/25 05:21 Test 02/02/25 05:21 Range/Units Serum Glucose 101 74-106 mg/dL Problem List Sepsis with left-sided pneumonia/UTI. Acute on chronic hypoxic respiratory failure. NSTEMI, likely type 2 secondary to above. Rule out structural heart disease. 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 Nicotine dependence. Hypertension. Thyroid disease. Assessment/Plan Continued all current supportive medical care. Morphine and [place] for pain management. Aspirin. IV antibiotics as ordered. Lisinopril. Nitro SL. Additional plan as per the hospital course. Plan discussed with: Patient CORY ABDULLAHI MD Feb 02, 2025 20:17
[2025-02-03] VITALS (13 sets, daily range): BP systolic 145–164; BP diastolic 76–88; PULSE 64–87; RESP 18–19; TEMP 96.5–98; O2SAT 92–98
[2025-02-03 06:06] LABS: Hematocrit 34.9 % (36.0-46.0); Hemoglobin 11.7 g/dL (12.2-16.2); Mean Corpuscular Hemoglobin 29.1 pg (28.0-32.0); Mean Corpuscular Volume 87.1 fL (80.0-100.0); Nucleated Red Blood Cells % 0.0 %
[2025-02-03 06:43] LABS: Alkaline Phosphatase 85 U/L (46-116); Anion Gap 8 (5-15); BUN/Creatinine Ratio 30.9 (10.0-20.0); Calcium 8.7 mg/dL (8.7-10.4); Carbon Dioxide 26 mmol/L (20-31); Chloride 106 mmol/L (98-107); Glucose 90 mg/dL (74-106); Potassium 4.7 mmol/L (3.5-5.1); Sodium 140 mmol/L (136-145)
[2025-02-03 06:44] LABS: Alanine Aminotransferase 42 U/L (7-40); Albumin 3.0 g/dL (3.2-4.8); Bilirubin, Total 0.2 mg/dL (0.2-1.0); Blood Urea Nitrogen 25 mg/dL (9-23); Total Protein 5.4 g/dL (5.7-8.2)
--- NOTE | 2025-02-03 07:58 | DVH ---
INDICATION: left pneumonia TECHNIQUE: Single frontal view of the chest was obtained. COMPARISON: CT CHEST WITHOUT CONTRAST on DOS: 02/01/25, XY CHEST PORTABLE on DOS: 02/01/25, XY CHEST PORTABLE on DOS: 02/01/25 FINDINGS: Lines and Tubes: None Lungs: Left upper and lower lung zones consolidation noted. Pleura: No effusion. No pneumothorax. Cardiomediastinal contours: Unremarkable Bones: No acute osseous abnormality. IMPRESSION: 1. Left upper and lower lung zone consolidation concerning for pneumonia in the appropriate clinical setting.
[2025-02-03] MEDS ORDERED: VANCOMYCIN PER PHARMACY 0 MG IV SCH (10:15)
--- NOTE | 2025-02-03 10:21 | DVHPN2 ---
Progress Note Date Seen: Feb 03, 2025 Medical Necessity Reason Pt with a Central, PICC or Fol: No Subjective Patient reports: No new complaints Review of Systems: HEENT:Normal, CVS:Normal, RESPIRATORY:Normal, GI:Normal, :Normal, MSK:Normal, NEURO:Normal Objective vital signs Vital Sign Date Time Temp Pulse Resp B/P (MAP) Pulse Ox O2 Delivery O2 Flow Rate FiO2 02/03/25 08:51 96.6 70 18 160/86 (110) 94 96.6 02/02/25 22:38 Nasal Cannula* 2 28 Total Intake and Output 02/02/25 02/02/25 02/03/25 15:00 23:00 07:00 Intake Total 300 ml 0 ml 480 ml Balance 300 ml 0 ml 480 ml medications Current Medications Medications Dose Ordered Sig/Caleb Route Start Time Stop Time Status Last Admin Dose Admin Acetaminophen/ Hydrocodone Bitart 1 tab Q4HP PRN PO 02/01/25 14:45 Ondansetron HCl 4 mg Q4HP PRN IV 02/01/25 14:45 Docusate Sodium 100 mg BIDPRN PRN PO 02/01/25 14:45 Acetaminophen 650 mg Q6HP PRN PO 02/01/25 14:45 Nitroglycerin 0.4 mg Q5MINP PRN SL 02/01/25 14:45 Morphine Sulfate 2 mg Q30M PRN IV 02/01/25 14:45 Ceftriaxone Sodium 50 ml @ 100 mls/hr DAILY@09 IV 02/02/25 09:00 02/02/25 10:53 100 MLS/HR Azithromycin 250 ml @ 125 mls/hr DAILY IV 02/02/25 10:00 02/02/25 12:06 125 MLS/HR Ipratropium [place] 0.5 mg Q6HWA NEB 02/01/25 18:00 02/02/25 17:54 0.5 MG Albuterol 2.5 mg Q6HWA NEB 02/01/25 18:00 02/02/25 17:54 2.5 MG Citalopram Hydrobromide 40 mg DAILY PO 02/02/25 10:00 02/02/25 10:55 40 MG Lisinopril 10 mg DAILY PO 02/02/25 10:00 02/02/25 10:55 10 MG Aspirin 81 mg DAILY PO 02/02/25 10:00 02/02/25 10:55 81 MG Nicotine 1 patch DAILY TD 02/02/25 10:00 02/02/25 10:54 1 PATCH Examination: GENERAL:Normal, HEENT:Normal, NECK:Normal, LUNGS:Normal, LUNGS:Abnormal (on oxygen), CVS:Normal, ABDOMEN:Normal, MSK:Normal, SKIN:Normal, NEURO:Normal, :Normal laboratory and microbiology Laboratory Tests 02/03/25 05:09 Test 02/03/25 05:09 Range/Units Serum Glucose 90 74-106 mg/dL Microbiology Date/Time Source Procedure Growth Status 02/01/25 10:14 Blood Blood Culture - Preliminary NO GROWTH AFTER 24 HOURS OF INCUBATION. Resulted Problem List/Assessment/Plan Problem List/Assessment/Plan #1 acute resp failure: cont oxygen #2 sepsis with left pneumonia- gram positive/neg: iv antibiotics #3 copd with exacerbation : bronchodilators #4 htn #5 tobacco abuse: advised to quit, nicotine patch- time spent 12 mins #6 nstemi ?type 2: per cardiology #7 hypokalemia: improved advance care planning- full code- time spent 18 mins unstable for transfer Plan discussed with: Patient My Orders My Orders Orders - MONIKA ALANIZ MD Procedure Category Date Status Time Respiratory Culture ROMAN 02/02/25 Logged W/ Gs 12:18 Chest Portable XY 02/03/25 Resulted 06:00 Vancomycin PHA 02/03/25 Transmitted 10:15 Temazepam (Restoril) PHA 02/03/25 Transmitted 10:15 Nicotine 21mg/24hr PHA 02/03/25 Transmitted (Nicoderm 21mg/24hr) 10:15 Nicotine 21mg/24hr PHA 02/04/25 Transmitted (Nicoderm 21mg/24hr) 10:00 Levofloxacin Levaquin PHA 02/04/25 Transmitted 10:00 Levofloxacin Levaquin PHA 02/03/25 Transmitted 10:15 Basic Metabolic Panel LAB 02/04/25 Verified 06:00 Complete Blood Count LAB 02/04/25 Verified 06:00 Date of Service: Feb 03, 2025 Billing Provider: MONIKA ALANIZ MD Common Visit Codes: [id number] INP/OBS CARE(HIGH) MONIKA ALANIZ MD Feb 03, 2025 10:21
[2025-02-03] MEDS: NICOTINE 21MG/24 HR TOPICAL PATCH TD ONE (10:50)
[2025-02-03] MEDS ORDERED: VANCOMYCIN 1.5GM/250ML 250 ML IV SCH (18:00)
[2025-02-03] MEDS: VANCOMYCIN 1.25GM/250ML 250 ML IV SCH (20:22)
[2025-02-03] MEDS: TEMAZEPAM 15 MG CAP PO PRN (20:36)
--- NOTE | 2025-02-03 21:45 | DVHPN2 ---
Progress Note - Dictate Date Seen: Feb 03, 2025 Medical Necessity Reason Pt with a Central, PICC or Fol: No Subjective Patient was seen and evaluated in follow up. Patient is on 2 LPM NC. Echocardiogram showed an EF of 75%. WBC 17.7, BUN 25, AST 60, ALT 42. Chest x- ray shows left upper and lower lung zone. Telemetry reviewed. vital signs Vital Sign Date Time Temp Pulse Resp B/P (MAP) Pulse Ox O2 Delivery O2 Flow Rate FiO2 02/03/25 10:53 160/86 02/03/25 08:51 96.6 70 18 94 96.6 02/02/25 22:38 Nasal Cannula* 2 28 Total Intake and Output 02/02/25 02/02/25 02/03/25 15:00 23:00 07:00 Intake Total 300 ml 0 ml 480 ml Balance 300 ml 0 ml 480 ml medications Current Medications Medications Dose Ordered Sig/Caleb Route Start Time Stop Time Status Last Admin Dose Admin Acetaminophen/ Hydrocodone Bitart 1 tab Q4HP PRN PO 02/01/25 14:45 Ondansetron HCl 4 mg Q4HP PRN IV 02/01/25 14:45 Docusate Sodium 100 mg BIDPRN PRN PO 02/01/25 14:45 Acetaminophen 650 mg Q6HP PRN PO 02/01/25 14:45 Nitroglycerin 0.4 mg Q5MINP PRN SL 02/01/25 14:45 Morphine Sulfate 2 mg Q30M PRN IV 02/01/25 14:45 Ipratropium [place] 0.5 mg Q6HWA [facility] 02/01/25 18:00 02/02/25 17:54 0.5 MG Albuterol 2.5 mg Q6HWA [facility] 02/01/25 18:00 02/02/25 17:54 2.5 MG Citalopram Hydrobromide 40 mg DAILY PO 02/02/25 10:00 02/03/25 10:53 40 MG Lisinopril 10 mg DAILY PO 02/02/25 10:00 02/03/25 10:53 10 MG Aspirin 81 mg DAILY PO 02/02/25 10:00 02/03/25 10:52 81 MG Vancomycin HCl 0 ml @ 0 mls/hr PER PHARMACY IV 02/03/25 10:15 UNV Temazepam 15 mg HSPRN PRN PO 02/03/25 10:15 Nicotine 1 patch DAILY TD 02/04/25 10:00 Levofloxacin/ Dextrose 100 ml @ 100 mls/hr DAILY IV 02/04/25 10:00 objective GENERAL: Alert and oriented x 3. No acute distress. EYES: PERRL, EOMI. Anicteric. HENT: Moist mucous membranes. LUNGS: Coarse breath sounds. CARDIOVASCULAR: Regular rate and rhythm. ABDOMEN: Soft, nontender and nondistended. EXTREMITIES: No edema. NEUROLOGIC: No focal neurological deficits. SKIN: Warm, dry. laboratory and microbiology Laboratory Tests 02/03/25 05:09 Test 02/03/25 05:09 Range/Units Serum Glucose 90 74-106 mg/dL Problem List Sepsis with left-sided pneumonia/UTI. Acute on chronic hypoxic respiratory failure. NSTEMI, likely type 2 secondary to above. Rule out structural heart disease. 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 Nicotine dependence. Hypertension. Thyroid disease. Assessment/Plan Continued all current supportive medical care. Morphine and [place] for pain management. Aspirin. Lisinopril. Nitro SL. Nebulized breathing treatments. Additional plan as per the hospital course. Plan discussed with: Patient CORY ABDULLAHI MD Feb 03, 2025 11:51
[2025-02-04] VITALS (14 sets, daily range): BP systolic 142–160; BP diastolic 77–84; PULSE 80–88; RESP 14–19; TEMP 97.9–98.4; O2SAT 2–98
[2025-02-04 06:08] LABS: Hematocrit 37.4 % (36.0-46.0); Hemoglobin 12.7 g/dL (12.2-16.2); Mean Corpuscular Hemoglobin 29.6 pg (28.0-32.0); Mean Corpuscular Volume 87.2 fL (80.0-100.0)
[2025-02-04 06:24] LABS: Chloride 101 mmol/L (98-107); Potassium 4.0 mmol/L (3.5-5.1); Sodium 140 mmol/L (136-145)
[2025-02-04 06:25] LABS: Anion Gap 8 (5-15); Calcium 8.7 mg/dL (8.7-10.4); Carbon Dioxide 31 mmol/L (20-31)
[2025-02-04 06:30] LABS: BUN/Creatinine Ratio 27.2 (10.0-20.0)
[2025-02-04 06:35] LABS: Blood Urea Nitrogen 25 mg/dL (9-23); Glucose 71 mg/dL (74-106)
[2025-02-04 08:32] LABS: Total Cells Counted 100.0 (100)
[2025-02-04 08:33] LABS: Anisocytosis Slight
[2025-02-04] MEDS: NICOTINE 21MG/24 HR TOPICAL PATCH TD SCH (09:24)
--- NOTE | 2025-02-04 13:56 | DVHPN2 ---
Progress Note - Dictate Date Seen: Feb 04, 2025 Medical Necessity Reason Pt with a Central, PICC or Fol: No Subjective Patient was seen and evaluated in follow up. Patient is on 2 LPM NC. Patient denies any complaints. WBC 13.8, BUN 25, GLUC 71. Telemetry reviewed. vital signs Vital Sign Date Time Temp Pulse Resp B/P (MAP) Pulse Ox O2 Delivery O2 Flow Rate FiO2 02/04/25 09:26 158/83 02/04/25 08:39 98.1 82 17 92 98.1 02/03/25 20:20 Nasal Cannula* 1 24 Total Intake and Output 02/03/25 02/03/25 02/04/25 15:00 23:00 07:00 Intake Total 100 ml 1100 ml 750 ml Balance 100 ml 1100 ml 750 ml medications Current Medications Medications Dose Ordered Sig/Caleb Route Start Time Stop Time Status Last Admin Dose Admin Acetaminophen/ Hydrocodone Bitart 1 tab Q4HP PRN PO 02/01/25 14:45 Ondansetron HCl 4 mg Q4HP PRN IV 02/01/25 14:45 Docusate Sodium 100 mg BIDPRN PRN PO 02/01/25 14:45 Acetaminophen 650 mg Q6HP PRN PO 02/01/25 14:45 Nitroglycerin 0.4 mg Q5MINP PRN SL 02/01/25 14:45 Morphine Sulfate 2 mg Q30M PRN IV 02/01/25 14:45 Ipratropium [place] 0.5 mg Q6HWA [facility] 02/01/25 18:00 02/03/25 19:13 0.5 MG Albuterol 2.5 mg Q6HWA [facility] 02/01/25 18:00 02/03/25 19:12 2.5 MG Citalopram Hydrobromide 40 mg DAILY PO 02/02/25 10:00 02/04/25 09:26 40 MG Lisinopril 10 mg DAILY PO 02/02/25 10:00 02/04/25 09:26 10 MG Aspirin 81 mg DAILY PO 02/02/25 10:00 02/04/25 09:25 81 MG Vancomycin HCl 0 ml @ 0 mls/hr PER PHARMACY IV 02/03/25 10:15 Temazepam 15 mg HSPRN PRN PO 02/03/25 10:15 02/03/25 20:36 15 MG Nicotine 1 patch DAILY TD 02/04/25 10:00 02/04/25 09:24 1 PATCH Levofloxacin/ Dextrose 100 ml @ 100 mls/hr DAILY IV 02/04/25 10:00 02/04/25 09:27 100 MLS/HR Vancomycin HCl 250 ml @ 200 mls/hr Q24H IV 02/03/25 20:00 02/03/25 20:22 200 MLS/HR objective GENERAL: Alert and oriented x 3. No acute distress. EYES: PERRL, EOMI. Anicteric. HENT: Moist mucous membranes. LUNGS: Coarse breath sounds. CARDIOVASCULAR: Regular rate and rhythm. ABDOMEN: Soft, nontender and nondistended. EXTREMITIES: No edema. NEUROLOGIC: No focal neurological deficits. SKIN: Warm, dry. laboratory and microbiology Laboratory Tests 02/04/25 04:31 Test 02/04/25 04:31 Range/Units Serum Glucose 71 L 74-106 mg/dL Problem List Sepsis with left-sided pneumonia/UTI. Acute on chronic hypoxic respiratory failure. NSTEMI, likely type 2 secondary to above. Rule out structural heart disease. 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 Nicotine dependence. Hypertension. Thyroid disease. Assessment/Plan Continued all current supportive medical care. Morphine and [place] for pain management. Aspirin. Lisinopril. Nitro SL. IV antibiotics as ordered. Additional plan as per the hospital course. Plan discussed with: Patient CORY ABDULLAHI MD Feb 04, 2025 12:26
[2025-02-05] VITALS (15 sets, daily range): BP systolic 128–151; BP diastolic 62–86; PULSE 69–93; RESP 17–20; TEMP 98–98.5; O2SAT 92–99
[2025-02-05 06:39] LABS: Hematocrit 34.0 % (36.0-46.0); Hemoglobin 11.4 g/dL (12.2-16.2); Mean Corpuscular Hemoglobin 29.1 pg (28.0-32.0); Mean Corpuscular Volume 86.3 fL (80.0-100.0); Nucleated Red Blood Cells % 0.0 %
--- NOTE | 2025-02-05 15:47 | DVHPN2 ---
Subjective I am assuming the care of the patient from today onwards. Patient is here for acute hypoxic respiratory failure secondary to acute COPD exacerbation and left- sided pneumonia. Patient is requesting to go home but she is on O2 supplementation. Changes from previous H/P or p: No Changes Eyes: No Pain, No Vision change, No Conjunctivae inflammation, No Eyelid inflammation, No Other, No Redness ENT: No Ear pain, No Ear discharge, No Nose pain, No Nose discharge, No Nose congestion, No Mouth pain, No Mouth swelling, No Throat pain, No Throat swelling, No Other Cardiovascular: No Chest Pain, No Palpitations, No Orthopnea, No Paroxysmal Noc. Dyspnea, No Edema, No Lt Headedness, No Other Respiratory: Cough; No Dry; Shortness of breath, SOB with excertion; No Wheezing, No Hemoptysis, No Pleuritic Pain, No Sputum, No Other Gastrointestinal: No Nausea, No Vomiting, No Abdominal Pain, No Diarrhea, No Constipation, No Melena, No Hematochezia, No Other Genitourinary: No Dysuria, No Frequency, No Incontinence, No Hematuria, No Retention, No Other Musculoskeletal: No other, No neck pain, No shoulder pain, No arm pain, No back pain, No hand pain, No leg pain, No foot pain Skin: No Rash, No Lesions, No Jaundice, No Bruising, No Other Objective Vitals Vital Signs Date Time Temp Pulse Resp B/P (MAP) Pulse Ox O2 Delivery O2 Flow Rate FiO2 02/05/25 13:00 98.2 88 17 151/77 (101) 96 98.2 02/05/25 10:00 Nasal Cannula* 2 28 Intake/Output Intake and Output 02/05/25 07:00 Intake Total 3190 ml Balance 3190 ml Intake Oral 2840 ml IV Total 350 ml # Voids 13 # Bowel Movements 2 Exam HEENT pupils are reactive Neck is supple CV is S1-S2 regular rate and rhythm Respiratory diminished breath sounds bilateral lung bases GI positive bowel sound Extremity no edema [employer] no motor deficit Medications Current Medications Medications Dose Ordered Sig/Caleb Route Start Time Stop Time Status Last Admin Dose Admin Acetaminophen/ Hydrocodone Bitart 1 tab Q4HP PRN PO 02/01/25 14:45 Ondansetron HCl 4 mg Q4HP PRN IV 02/01/25 14:45 Docusate Sodium 100 mg BIDPRN PRN PO 02/01/25 14:45 Acetaminophen 650 mg Q6HP PRN PO 02/01/25 14:45 Nitroglycerin 0.4 mg Q5MINP PRN SL 02/01/25 14:45 Morphine Sulfate 2 mg Q30M PRN IV 02/01/25 14:45 Ipratropium [place] 0.5 mg Q6HWA NEB 02/01/25 18:00 02/05/25 12:38 0.5 MG Albuterol 2.5 mg Q6HWA NEB 02/01/25 18:00 02/05/25 12:38 2.5 MG Citalopram Hydrobromide 40 mg DAILY PO 02/02/25 10:00 02/05/25 09:20 40 MG Lisinopril 10 mg DAILY PO 02/02/25 10:00 02/05/25 09:21 10 MG Aspirin 81 mg DAILY PO 02/02/25 10:00 02/05/25 09:20 81 MG Vancomycin HCl 0 ml @ 0 mls/hr PER PHARMACY IV 02/03/25 10:15 Temazepam 15 mg HSPRN PRN PO 02/03/25 10:15 02/03/25 20:36 15 MG Nicotine 1 patch DAILY TD 02/04/25 10:00 02/05/25 09:16 1 PATCH Levofloxacin/ Dextrose 100 ml @ 100 mls/hr DAILY IV 02/04/25 10:00 02/05/25 09:16 100 MLS/HR Vancomycin HCl 250 ml @ 200 mls/hr Q24H IV 02/03/25 20:00 02/04/25 20:13 200 MLS/HR Laboratory Results Laboratory Tests 02/04/25 04:31 02/05/25 06:02 Urinalysis Test 02/01/25 10:49 Urine Color Light-orange (Yellow) Urine Clarity Turbid (Clear) H Urine pH 5.5 (5.0-9.0) Urine Specific [place] 1.022 (1.001-1.035) Urine Protein 1+ (Negative) H Urine Ketones Negative (Negative) Urine Blood 1+ /uL (Negative) H Urine Nitrite 1+ (Negative) H Urine Bilirubin Negative (Negative) Urine Urobilinogen Normal mg/dL (Negative) Urine Leukocyte Esterase Negative /uL (Negative) Urine RBC 1 /hpf (0 - 4) Urine Microscopic WBC 3 /HPF (0-5) Urine Squamous Epithelial Cells Few /hpf (<5) Urine Amorphous Crystals Few /hpf (None Seen) Urine Bacteria Many /hpf (None Seen) H Urine Hyaline Casts Few /lpf (0 - 2) Urine Mucus Few (None Seen) Urine Yeast (Budding) Occasional /hpf (None Urine Glucose Normal mg/dL (Normal) Microbiology Microbiology Date/Time Source Procedure Growth Status 02/03/25 23:45 Sputum Gram Stain - Preliminary Resulted 02/03/25 23:45 Sputum Respiratory Culture - Preliminary Resulted 02/01/25 10:14 Blood Blood Culture - Preliminary NO GROWTH AFTER 72 HOURS OF INCUBATION. Resulted Assessment/Plan Assessment/Plan 79-year-old female with a known history of COPD, chronic tobacco use disorder still actively smokes pack a day for 55+ years presented to the hospital with shortness of breaths found to have 1. Acute hypoxic respiratory failure requiring O2 supplementation secondary to acute COPD exacerbation and left-sided community-acquired pneumonia 2. Left-sided community-acquired pneumonia 3. Acute COPD exacerbation 4. Chronic tobacco use disorder 5. Elevated troponin suspect NSTEMI type 2 as per Cardiology -continue IV antibiotics, med nebs, O2 supplementation, patient is not stable to be discharged yet. Plan discussed with: Patient Date of Service: Feb 05, 2025 Billing Provider: EVENS HERNANDEZ MD Common Visit Codes: [id number] INP/OBS CARE(HIGH) EVENS HERNANDEZ MD Feb 05, 2025 15:47
--- NOTE | 2025-02-05 21:12 | DVHPN2 ---
Progress Note - Dictate Date Seen: Feb 05, 2025 Medical Necessity Reason Pt with a Central, PICC or Fol: No Subjective Patient was seen and evaluated in follow up. Patient is maintained on 2 LPM NC. Patient resting in bed. WBC 13.7. Telemetry reviewed. vital signs Vital Sign Date Time Temp Pulse Resp B/P (MAP) Pulse Ox O2 Delivery O2 Flow Rate FiO2 02/05/25 09:21 128/78 02/05/25 09:00 98.2 82 19 97 98.2 02/05/25 08:23 Nasal Cannula 2.0 02/05/25 08:23 28 Total Intake and Output 02/04/25 02/04/25 02/05/25 15:00 23:00 07:00 Intake Total 100 ml 1850 ml 1240 ml Balance 100 ml 1850 ml 1240 ml medications Current Medications Medications Dose Ordered Sig/Caleb Route Start Time Stop Time Status Last Admin Dose Admin Acetaminophen/ Hydrocodone Bitart 1 tab Q4HP PRN PO 02/01/25 14:45 Ondansetron HCl 4 mg Q4HP PRN IV 02/01/25 14:45 Docusate Sodium 100 mg BIDPRN PRN PO 02/01/25 14:45 Acetaminophen 650 mg Q6HP PRN PO 02/01/25 14:45 Nitroglycerin 0.4 mg Q5MINP PRN SL 02/01/25 14:45 Morphine Sulfate 2 mg Q30M PRN IV 02/01/25 14:45 Ipratropium [place] 0.5 mg Q6HWA [facility] 02/01/25 18:00 02/05/25 08:22 0.5 MG Albuterol 2.5 mg Q6HWA [facility] 02/01/25 18:00 02/05/25 08:22 2.5 MG Citalopram Hydrobromide 40 mg DAILY PO 02/02/25 10:00 02/05/25 09:20 40 MG Lisinopril 10 mg DAILY PO 02/02/25 10:00 02/05/25 09:21 10 MG Aspirin 81 mg DAILY PO 02/02/25 10:00 02/05/25 09:20 81 MG Vancomycin HCl 0 ml @ 0 mls/hr PER PHARMACY IV 02/03/25 10:15 Temazepam 15 mg HSPRN PRN PO 02/03/25 10:15 02/03/25 20:36 15 MG Nicotine 1 patch DAILY TD 02/04/25 10:00 02/05/25 09:16 1 PATCH Levofloxacin/ Dextrose 100 ml @ 100 mls/hr DAILY IV 02/04/25 10:00 02/05/25 09:16 100 MLS/HR Vancomycin HCl 250 ml @ 200 mls/hr Q24H IV 02/03/25 20:00 02/04/25 20:13 200 MLS/HR objective GENERAL: Alert and oriented x 3. No acute distress. EYES: PERRL, EOMI. Anicteric. HENT: Moist mucous membranes. LUNGS: Coarse breath sounds. CARDIOVASCULAR: Regular rate and rhythm. ABDOMEN: Soft, nontender and nondistended. EXTREMITIES: No edema. NEUROLOGIC: No focal neurological deficits. SKIN: Warm, dry. laboratory and microbiology Laboratory Tests 02/05/25 06:02 02/04/25 04:31 Test 02/04/25 04:31 Range/Units Serum Glucose 71 L 74-106 mg/dL Problem List Sepsis with left-sided pneumonia/UTI. Acute on chronic hypoxic respiratory failure. NSTEMI, likely type 2 secondary to above. Rule out structural heart disease. 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 Nicotine dependence. Hypertension. Thyroid disease. Assessment/Plan Continued all current supportive medical care. Morphine and [place] for pain management. Aspirin. Lisinopril. Nitro SL. IV antibiotics as ordered. Additional plan as per the hospital course. Plan discussed with: Patient CORY ABDULLAHI MD Feb 05, 2025 11:26
[2025-02-06] VITALS (14 sets, daily range): BP systolic 128–142; BP diastolic 52–79; PULSE 74–93; RESP 16–20; TEMP 97.6–97.8; O2SAT 90–99
[2025-02-06 07:27] LABS: Hematocrit 32.8 % (36.0-46.0); Hemoglobin 10.9 g/dL (12.2-16.2); Mean Corpuscular Hemoglobin 28.9 pg (28.0-32.0); Mean Corpuscular Volume 86.8 fL (80.0-100.0)
[2025-02-06 08:20] LABS: Total Cells Counted 100.0 (100)
--- NOTE | 2025-02-06 15:18 | DVHPN2 ---
Subjective Yesterday patient's oxygen saturation was 81% on minimal exertion. We will get ABG on room air if patient's qualify for home oxygen. Changes from previous H/P or p: No Changes Eyes: No Pain, No Vision change, No Conjunctivae inflammation, No Eyelid inflammation, No Other, No Redness ENT: No Ear pain, No Ear discharge, No Nose pain, No Nose discharge, No Nose congestion, No Mouth pain, No Mouth swelling, No Throat pain, No Throat swelling, No Other Cardiovascular: No Chest Pain, No Palpitations, No Orthopnea, No Paroxysmal Noc. Dyspnea, No Edema, No Lt Headedness, No Other Respiratory: Cough; No Dry; Shortness of breath, SOB with excertion; No Wheezing, No Hemoptysis, No Pleuritic Pain, No Sputum, No Other Gastrointestinal: No Nausea, No Vomiting, No Abdominal Pain, No Diarrhea, No Constipation, No Melena, No Hematochezia, No Other Genitourinary: No Dysuria, No Frequency, No Incontinence, No Hematuria, No Retention, No Other Musculoskeletal: No other, No neck pain, No shoulder pain, No arm pain, No back pain, No hand pain, No leg pain, No foot pain Skin: No Rash, No Lesions, No Jaundice, No Bruising, No Other Objective Vitals Vital Signs Date Time Temp Pulse Resp B/P (MAP) Pulse Ox O2 Delivery O2 Flow Rate FiO2 02/06/25 12:51 97.8 89 17 138/52 (80) 94 97.8 02/06/25 07:14 Nasal Cannula* 2 28 Intake/Output Intake and Output 02/06/25 07:00 Intake Total 1600 ml Balance 1600 ml Intake Oral 1600 ml # Voids 11 # Bowel Movements 4 Exam HEENT pupils are reactive Neck is supple CV is S1-S2 regular rate and rhythm Respiratory diminished breath sounds bilateral lung bases , positive expiratory wheezing right side more than left GI positive bowel sound Extremity no edema [employer] no motor deficit Medications Current Medications Medications Dose Ordered Sig/Caleb Route Start Time Stop Time Status Last Admin Dose Admin Acetaminophen/ Hydrocodone Bitart 1 tab Q4HP PRN PO 02/01/25 14:45 Ondansetron HCl 4 mg Q4HP PRN IV 02/01/25 14:45 Docusate Sodium 100 mg BIDPRN PRN PO 02/01/25 14:45 Acetaminophen 650 mg Q6HP PRN PO 02/01/25 14:45 Nitroglycerin 0.4 mg Q5MINP PRN SL 02/01/25 14:45 Morphine Sulfate 2 mg Q30M PRN IV 02/01/25 14:45 Ipratropium [place] 0.5 mg Q6HWA NEB 02/01/25 18:00 02/06/25 12:32 0.5 MG Albuterol 2.5 mg Q6HWA NEB 02/01/25 18:00 02/06/25 12:32 2.5 MG Citalopram Hydrobromide 40 mg DAILY PO 02/02/25 10:00 02/06/25 10:00 40 MG Lisinopril 10 mg DAILY PO 02/02/25 10:00 02/06/25 10:12 10 MG Aspirin 81 mg DAILY PO 02/02/25 10:00 02/06/25 10:00 81 MG Vancomycin HCl 0 ml @ 0 mls/hr PER PHARMACY IV 02/03/25 10:15 Temazepam 15 mg HSPRN PRN PO 02/03/25 10:15 02/03/25 20:36 15 MG Nicotine 1 patch DAILY TD 02/04/25 10:00 02/06/25 09:59 1 PATCH Levofloxacin/ Dextrose 100 ml @ 100 mls/hr DAILY IV 02/04/25 10:00 02/06/25 10:00 100 MLS/HR Vancomycin HCl 250 ml @ 200 mls/hr Q24H IV 02/03/25 20:00 02/05/25 19:58 200 MLS/HR Laboratory Results Laboratory Tests 02/04/25 04:31 02/06/25 05:34 Urinalysis Test 02/01/25 10:49 Urine Color Light-orange (Yellow) Urine Clarity Turbid (Clear) H Urine pH 5.5 (5.0-9.0) Urine Specific [place] 1.022 (1.001-1.035) Urine Protein 1+ (Negative) H Urine Ketones Negative (Negative) Urine Blood 1+ /uL (Negative) H Urine Nitrite 1+ (Negative) H Urine Bilirubin Negative (Negative) Urine Urobilinogen Normal mg/dL (Negative) Urine Leukocyte Esterase Negative /uL (Negative) Urine RBC 1 /hpf (0 - 4) Urine Microscopic WBC 3 /HPF (0-5) Urine Squamous Epithelial Cells Few /hpf (<5) Urine Amorphous Crystals Few /hpf (None Seen) Urine Bacteria Many /hpf (None Seen) H Urine Hyaline Casts Few /lpf (0 - 2) Urine Mucus Few (None Seen) Urine Yeast (Budding) Occasional /hpf (None Urine Glucose Normal mg/dL (Normal) Microbiology Microbiology Date/Time Source Procedure Growth Status 02/03/25 23:45 Sputum Gram Stain - Preliminary Resulted 02/03/25 23:45 Sputum Respiratory Culture - Preliminary Resulted 02/01/25 10:14 Blood Blood Culture - Final NO GROWTH AFTER 5 DAYS OF INCUBATION. Complete Assessment/Plan Assessment/Plan 79-year-old female with a known history of COPD, chronic tobacco use disorder still actively smokes pack a day for 55+ years presented to the hospital with shortness of breaths found to have 1. Acute hypoxic respiratory failure requiring O2 supplementation secondary to acute COPD exacerbation and left-sided community-acquired pneumonia 2. Left-sided community-acquired pneumonia 3. Acute COPD exacerbation 4. Chronic tobacco use disorder 5. Elevated troponin suspect NSTEMI type 2 as per Cardiology -take off oxygen, check O2 saturation on room air, get ABG on room air if patient's qualify for home oxygen - patient is unstable to be transferred to [place]. -continue med nebs, O2 supplementation Plan discussed with: Patient My Orders Orders - EVENS HERNANDEZ MD Procedure Category Date Status Time Abg W/ Co-Ox RT 02/06/25 Logged 15:00 Pt Request For Service PT 02/06/25 Logged 14:09 Date of Service: Feb 06, 2025 Billing Provider: EVENS HERNANDEZ MD Common Visit Codes: [id number] INP/OBS CARE(HIGH) EVENS HERNANDEZ MD Feb 06, 2025 15:18
[2025-02-06 16:02] LABS: Base Excess 6.6 mmol/L (-2.0-3.0)
--- NOTE | 2025-02-06 18:34 | DVHPN2 ---
Progress Note - Dictate Date Seen: Feb 06, 2025 Medical Necessity Reason Pt with a Central, PICC or Fol: No Subjective Patient was seen and evaluated in follow up. Patient is stable 2 LPM NC. Patient denies any new complaints of pain/discomfort. WBC 13.8. Telemetry reviewed. vital signs Vital Sign Date Time Temp Pulse Resp B/P (MAP) Pulse Ox O2 Delivery O2 Flow Rate FiO2 02/06/25 12:51 97.8 89 17 138/52 (80) 94 97.8 02/06/25 07:14 Nasal Cannula* 2 28 Total Intake and Output 02/05/25 02/05/25 02/06/25 15:00 23:00 07:00 Intake Total 900 ml 700 ml Balance 900 ml 700 ml medications Current Medications Medications Dose Ordered Sig/Caleb Route Start Time Stop Time Status Last Admin Dose Admin Acetaminophen/ Hydrocodone Bitart 1 tab Q4HP PRN PO 02/01/25 14:45 Ondansetron HCl 4 mg Q4HP PRN IV 02/01/25 14:45 Docusate Sodium 100 mg BIDPRN PRN PO 02/01/25 14:45 Acetaminophen 650 mg Q6HP PRN PO 02/01/25 14:45 Nitroglycerin 0.4 mg Q5MINP PRN SL 02/01/25 14:45 Morphine Sulfate 2 mg Q30M PRN IV 02/01/25 14:45 Ipratropium [place] 0.5 mg Q6HWA [facility] 02/01/25 18:00 02/06/25 12:32 0.5 MG Albuterol 2.5 mg Q6HWA [facility] 02/01/25 18:00 02/06/25 12:32 2.5 MG Citalopram Hydrobromide 40 mg DAILY PO 02/02/25 10:00 02/06/25 10:00 40 MG Lisinopril 10 mg DAILY PO 02/02/25 10:00 02/06/25 10:12 10 MG Aspirin 81 mg DAILY PO 02/02/25 10:00 02/06/25 10:00 81 MG Vancomycin HCl 0 ml @ 0 mls/hr PER PHARMACY IV 02/03/25 10:15 Temazepam 15 mg HSPRN PRN PO 02/03/25 10:15 02/03/25 20:36 15 MG Nicotine 1 patch DAILY TD 02/04/25 10:00 02/06/25 09:59 1 PATCH Levofloxacin/ Dextrose 100 ml @ 100 mls/hr DAILY IV 02/04/25 10:00 02/06/25 10:00 100 MLS/HR Vancomycin HCl 250 ml @ 200 mls/hr Q24H IV 02/03/25 20:00 02/05/25 19:58 200 MLS/HR objective GENERAL: Alert and oriented x 3. No acute distress. EYES: PERRL, EOMI. Anicteric. HENT: Moist mucous membranes. LUNGS: Coarse breath sounds. CARDIOVASCULAR: Regular rate and rhythm. ABDOMEN: Soft, nontender and nondistended. EXTREMITIES: No edema. NEUROLOGIC: No focal neurological deficits. SKIN: Warm, dry. laboratory and microbiology Laboratory Tests 02/06/25 05:34 02/04/25 04:31 Test 02/04/25 04:31 Range/Units Serum Glucose 71 L 74-106 mg/dL Problem List Sepsis with left-sided pneumonia/UTI. Acute on chronic hypoxic respiratory failure. NSTEMI, likely type 2 secondary to above. Rule out structural heart disease. 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 Nicotine dependence. Hypertension. Thyroid disease. Assessment/Plan Continued all current supportive medical care. Morphine and [place] for pain management. Aspirin. Lisinopril. Nitro SL. IV antibiotics as ordered. Nebulized breathing treatments. Additional plan as per the hospital course. Plan discussed with: Patient CORY ABDULLAHI MD Feb 06, 2025 13:28
[2025-02-07] VITALS (13 sets, daily range): BP systolic 128–147; BP diastolic 68–74; PULSE 78–88; RESP 14–18; TEMP 97.8–98.5; O2SAT 93–98
[2025-02-07 06:56] LABS: Hematocrit 31.6 % (36.0-46.0); Hemoglobin 10.8 g/dL (12.2-16.2); Mean Corpuscular Hemoglobin 29.6 pg (28.0-32.0); Mean Corpuscular Volume 86.5 fL (80.0-100.0)
[2025-02-07 08:27] LABS: Total Cells Counted 100.0 (100)
--- NOTE | 2025-02-07 10:26 | DVHPN2 ---
Progress Note Date Seen: Feb 07, 2025 Medical Necessity Reason Pt with a Central, PICC or Fol: No Subjective Patient reports: No new complaints Review of Systems: HEENT:Normal, CVS:Normal, RESPIRATORY:Normal, GI:Normal, :Normal, MSK:Normal, NEURO:Normal Objective vital signs Vital Sign Date Time Temp Pulse Resp B/P (MAP) Pulse Ox O2 Delivery O2 Flow Rate FiO2 02/07/25 10:08 138/73 02/07/25 05:00 98.0 78 18 98 98.0 02/06/25 20:07 Nasal Cannula* 2 28 Total Intake and Output 02/06/25 02/06/25 02/07/25 15:00 23:00 07:00 Intake Total 800 ml 300 ml Balance 800 ml 300 ml medications Current Medications Medications Dose Ordered Sig/Caleb Route Start Time Stop Time Status Last Admin Dose Admin Acetaminophen/ Hydrocodone Bitart 1 tab Q4HP PRN PO 02/01/25 14:45 Ondansetron HCl 4 mg Q4HP PRN IV 02/01/25 14:45 Docusate Sodium 100 mg BIDPRN PRN PO 02/01/25 14:45 Acetaminophen 650 mg Q6HP PRN PO 02/01/25 14:45 Nitroglycerin 0.4 mg Q5MINP PRN SL 02/01/25 14:45 Morphine Sulfate 2 mg Q30M PRN IV 02/01/25 14:45 Ipratropium [place] 0.5 mg Q6HWA NEB 02/01/25 18:00 02/06/25 20:07 0.5 MG Albuterol 2.5 mg Q6HWA NEB 02/01/25 18:00 02/06/25 20:07 2.5 MG Citalopram Hydrobromide 40 mg DAILY PO 02/02/25 10:00 02/07/25 10:10 40 MG Lisinopril 10 mg DAILY PO 02/02/25 10:00 02/07/25 10:08 10 MG Aspirin 81 mg DAILY PO 02/02/25 10:00 02/07/25 10:10 81 MG Vancomycin HCl 0 ml @ 0 mls/hr PER PHARMACY IV 02/03/25 10:15 Temazepam 15 mg HSPRN PRN PO 02/03/25 10:15 02/03/25 20:36 15 MG Nicotine 1 patch DAILY TD 02/04/25 10:00 02/07/25 10:10 1 PATCH Levofloxacin/ Dextrose 100 ml @ 100 mls/hr DAILY IV 02/04/25 10:00 02/07/25 10:10 100 MLS/HR Vancomycin HCl 250 ml @ 200 mls/hr Q24H IV 02/03/25 20:00 02/06/25 20:04 200 MLS/HR Examination: GENERAL:Normal, HEENT:Normal, NECK:Normal, LUNGS:Normal, LUNGS:Abnormal (on oxygen), CVS:Normal, ABDOMEN:Normal, MSK:Normal, SKIN:Normal, NEURO:Normal, :Normal laboratory and microbiology Laboratory Tests 02/07/25 06:33 02/04/25 04:31 Test 02/04/25 04:31 Range/Units Serum Glucose 71 L 74-106 mg/dL Microbiology Date/Time Source Procedure Growth Status 02/03/25 23:45 Sputum Gram Stain - Preliminary Resulted 02/03/25 23:45 Sputum Respiratory Culture - Preliminary Resulted 02/01/25 10:14 Blood Blood Culture - Final NO GROWTH AFTER 5 DAYS OF INCUBATION. Complete Problem List/Assessment/Plan Problem List/Assessment/Plan #1 acute resp failure: cont oxygen #2 sepsis with left pneumonia- gram positive/neg: iv antibiotics, chest xray #3 copd with exacerbation : bronchodilators #4 htn #5 tobacco abuse: advised to quit, nicotine patch- time spent 12 mins #6 nstemi ?type 2: per cardiology #7 hypokalemia: improved advance care planning- full code- time spent 18 mins unstable for transfer Plan discussed with: Patient My Orders My Orders Orders - MONIKA ALANIZ MD Procedure Category Date Status Time Chest Portable XY 02/07/25 Logged 10:15 Creatinine LAB 02/08/25 Verified 04:00 Complete Blood Count LAB 02/08/25 Verified 04:00 Vancomycin,Trough LAB 02/09/25 Verified 19:00 Vancomycin Per BRIGHT 02/09/25 Verified Pharmacy [facility] 20:00 Dietary Evaluation Review Comments: Monitor PO intake, lab values, weight trend, and I/O Expected Outcomes/Goals: Intake to meet >75% estimated needs FU 3-5 days Date of Service: Feb 07, 2025 Billing Provider: MONIKA ALANIZ MD Common Visit Codes: [id number] INP/OBS CARE(HIGH) MONIKA ALANIZ MD Feb 07, 2025 10:26
--- NOTE | 2025-02-07 11:18 | DVH ---
INDICATION: pneumonia TECHNIQUE: Single frontal view of the chest was obtained. COMPARISON: XY CHEST PORTABLE on DOS: 02/03/25, CT CHEST WITHOUT CONTRAST on DOS: 02/01/25, XY CHEST PORTABLE on DOS: 02/01/25, XY CHEST PORTABLE on DOS: 02/03/25 FINDINGS: Lines and Tubes: None Lungs: Left upper and lower lung zones consolidation noted. Pleura: No effusion. No pneumothorax. Cardiomediastinal contours: Unremarkable Bones: No acute osseous abnormality. IMPRESSION: 1. Left upper and lower lung zone consolidation concerning for pneumonia in the appropriate clinical setting.
--- NOTE | 2025-02-07 16:22 | DVHPN2 ---
Progress Note - Dictate Date Seen: Feb 07, 2025 Medical Necessity Reason Pt with a Central, PICC or Fol: No Subjective Patient was seen and evaluated in follow up. Patient is complaining of SOB. Patient is receiving nebulized breathing treatments and is on 2 LPM NC. Patient receiving IV antibiotics with Levaquin. WBC 12.1. Telemetry reviewed. vital signs Vital Sign Date Time Temp Pulse Resp B/P (MAP) Pulse Ox O2 Delivery O2 Flow Rate FiO2 02/07/25 13:05 88 16 96 02/07/25 13:00 98.4 147/71 (96) 98.4 02/07/25 12:58 Nasal Cannula 2.0 02/07/25 12:58 28 Total Intake and Output 02/06/25 02/06/25 02/07/25 15:00 23:00 07:00 Intake Total 800 ml 300 ml Balance 800 ml 300 ml medications Current Medications Medications Dose Ordered Sig/Caleb Route Start Time Stop Time Status Last Admin Dose Admin Acetaminophen/ Hydrocodone Bitart 1 tab Q4HP PRN PO 02/01/25 14:45 Ondansetron HCl 4 mg Q4HP PRN IV 02/01/25 14:45 Docusate Sodium 100 mg BIDPRN PRN PO 02/01/25 14:45 Acetaminophen 650 mg Q6HP PRN PO 02/01/25 14:45 Nitroglycerin 0.4 mg Q5MINP PRN SL 02/01/25 14:45 Morphine Sulfate 2 mg Q30M PRN IV 02/01/25 14:45 Ipratropium [place] 0.5 mg Q6HWA NEB 02/01/25 18:00 02/07/25 12:58 0.5 MG Albuterol 2.5 mg Q6HWA NEB 02/01/25 18:00 02/07/25 12:58 2.5 MG Citalopram Hydrobromide 40 mg DAILY PO 02/02/25 10:00 02/07/25 10:10 40 MG Lisinopril 10 mg DAILY PO 02/02/25 10:00 02/07/25 10:08 10 MG Aspirin 81 mg DAILY PO 02/02/25 10:00 02/07/25 10:10 81 MG Vancomycin HCl 0 ml @ 0 mls/hr PER PHARMACY IV 02/03/25 10:15 Temazepam 15 mg HSPRN PRN PO 02/03/25 10:15 02/03/25 20:36 15 MG Nicotine 1 patch DAILY TD 02/04/25 10:00 02/07/25 10:10 1 PATCH Vancomycin HCl 250 ml @ 200 mls/hr Q24H IV 02/03/25 20:00 02/06/25 20:04 200 MLS/HR Levofloxacin/ Dextrose 150 ml @ 100 mls/hr Q48H IV 02/09/25 10:00 objective GENERAL: Alert and oriented x 3. No acute distress. EYES: PERRL, EOMI. Anicteric. HENT: Moist mucous membranes. LUNGS: Coarse breath sounds. CARDIOVASCULAR: Regular rate and rhythm. ABDOMEN: Soft, nontender and nondistended. EXTREMITIES: No edema. NEUROLOGIC: No focal neurological deficits. SKIN: Warm, dry. laboratory and microbiology Laboratory Tests 02/07/25 06:33 02/04/25 04:31 Test 02/04/25 04:31 Range/Units Serum Glucose 71 L 74-106 mg/dL Problem List Sepsis with left-sided pneumonia/UTI. Acute on chronic hypoxic respiratory failure. NSTEMI, likely type 2 secondary to above. Rule out structural heart disease. 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 Nicotine dependence. Hypertension. Thyroid disease. Assessment/Plan Continued all current supportive medical care. Morphine and [place] for pain management. Aspirin. IV antibiotics as ordered. Lisinopril. Nitro SL. Additional plan as per the hospital course. Dietary Evaluation Review Comments: Monitor PO intake, lab values, weight trend, and I/O Expected Outcomes/Goals: Intake to meet >75% estimated needs FU 3-5 days Plan discussed with: Patient CORY ABDULLAHI MD Feb 07, 2025 16:22
[2025-02-08] VITALS (15 sets, daily range): BP systolic 119–149; BP diastolic 54–69; PULSE 68–88; RESP 16–20; TEMP 97.5–98.3; O2SAT 93–100
[2025-02-08 07:27] LABS: Hematocrit 34.1 % (36.0-46.0); Hemoglobin 11.5 g/dL (12.2-16.2); Mean Corpuscular Hemoglobin 29.5 pg (28.0-32.0); Mean Corpuscular Volume 87.6 fL (80.0-100.0)
[2025-02-08 07:37] LABS: Anion Gap 5 (5-15); Chloride 100 mmol/L (98-107); Potassium 3.6 mmol/L (3.5-5.1); Sodium 140 mmol/L (136-145)
[2025-02-08 07:38] LABS: Calcium 8.9 mg/dL (8.7-10.4); Carbon Dioxide 35 mmol/L (20-31)
[2025-02-08 07:43] LABS: BUN/Creatinine Ratio 9.8 (10.0-20.0); Blood Urea Nitrogen 10 mg/dL (9-23); Glucose 82 mg/dL (74-106)
[2025-02-08 09:29] LABS: Total Cells Counted 100.0 (100)
--- NOTE | 2025-02-08 10:27 | DVHPN2 ---
Progress Note Date Seen: Feb 08, 2025 Medical Necessity Reason Pt with a Central, PICC or Fol: No Subjective Patient reports: No new complaints Review of Systems: HEENT:Normal, CVS:Normal, RESPIRATORY:Normal, GI:Normal, :Normal, MSK:Normal, NEURO:Normal Objective vital signs Vital Sign Date Time Temp Pulse Resp B/P (MAP) Pulse Ox O2 Delivery O2 Flow Rate FiO2 02/08/25 09:29 149/55 02/08/25 07:22 77 16 100 02/08/25 07:12 Nasal Cannula 3.0 02/08/25 07:12 28 02/08/25 05:00 98.0 98.0 Total Intake and Output 02/07/25 02/07/25 02/08/25 15:00 23:00 07:00 Intake Total 100 ml 700 ml 250 ml Balance 100 ml 700 ml 250 ml medications Current Medications Medications Dose Ordered Sig/Caleb Route Start Time Stop Time Status Last Admin Dose Admin Acetaminophen/ Hydrocodone Bitart 1 tab Q4HP PRN PO 02/01/25 14:45 Ondansetron HCl 4 mg Q4HP PRN IV 02/01/25 14:45 Docusate Sodium 100 mg BIDPRN PRN PO 02/01/25 14:45 Acetaminophen 650 mg Q6HP PRN PO 02/01/25 14:45 Nitroglycerin 0.4 mg Q5MINP PRN SL 02/01/25 14:45 Morphine Sulfate 2 mg Q30M PRN IV 02/01/25 14:45 Ipratropium [place] 0.5 mg Q6HWA NEB 02/01/25 18:00 02/08/25 07:15 0.5 MG Albuterol 2.5 mg Q6HWA [facility] 02/01/25 18:00 02/08/25 07:15 2.5 MG Citalopram Hydrobromide 40 mg DAILY PO 02/02/25 10:00 02/08/25 09:25 40 MG Lisinopril 10 mg DAILY PO 02/02/25 10:00 02/08/25 09:29 10 MG Aspirin 81 mg DAILY PO 02/02/25 10:00 02/08/25 09:25 81 MG Vancomycin HCl 0 ml @ 0 mls/hr PER PHARMACY IV 02/03/25 10:15 Temazepam 15 mg HSPRN PRN PO 02/03/25 10:15 02/07/25 20:17 15 MG Nicotine 1 patch DAILY TD 02/04/25 10:00 02/08/25 09:24 1 PATCH Vancomycin HCl 250 ml @ 200 mls/hr Q24H IV 02/03/25 20:00 02/07/25 20:17 200 MLS/HR Levofloxacin/ Dextrose 150 ml @ 100 mls/hr Q48H IV 02/09/25 10:00 Examination: GENERAL:Normal, HEENT:Normal, NECK:Normal, LUNGS:Normal, LUNGS:Abnormal (on oxygen, decreased left side), CVS:Normal, ABDOMEN:Normal, MSK:Normal, SKIN:Normal, NEURO:Normal, :Normal laboratory and microbiology Laboratory Tests 02/08/25 06:14 Test 02/08/25 06:14 Range/Units Serum Glucose 82 74-106 mg/dL Microbiology Date/Time Source Procedure Growth Status 02/03/25 23:45 Sputum Gram Stain - Final Complete 02/03/25 23:45 Sputum Respiratory Culture - Final Complete 02/01/25 10:14 Blood Blood Culture - Final NO GROWTH AFTER 5 DAYS OF INCUBATION. Complete Problem List/Assessment/Plan Problem List/Assessment/Plan #1 acute resp failure: cont oxygen #2 sepsis with left pneumonia- gram positive/neg: iv antibiotics, ct chest #3 copd with exacerbation : bronchodilators #4 htn #5 tobacco abuse: advised to quit, nicotine patch- time spent 12 mins #6 nstemi ?type 2: per cardiology #7 hypokalemia: improved advance care planning- full code- time spent 18 mins unstable for transfer long dw son/daughter in law- reviewed results and plan of care Plan discussed with: Patient, Son My Orders My Orders Orders - MONIKA ALANIZ MD Procedure Category Date Status Time Pharmacy BRIGHT 02/07/25 In Process Clarification: 15:14 Levofloxacin 750mg PHA 02/09/25 In Process (Levaquin) 10:[address] 02/08/25 Verified 10:19 Basic Metabolic Panel LAB 02/09/25 Verified 06:00 Complete Blood Count LAB 02/09/25 Verified 06:00 Dietary Evaluation Review Comments: Monitor PO intake, lab values, weight trend, and I/O Expected Outcomes/Goals: Intake to meet >75% estimated needs FU 3-5 days Date of Service: Feb 08, 2025 Billing Provider: MONIKA ALANIZ MD Common Visit Codes: [id number] INP/OBS CARE(HIGH) MONIKA ALANIZ MD Feb 08, 2025 10:27
--- NOTE | 2025-02-08 11:51 | DVH ---
Exam: CT CHEST WITHOUT CONTRAST Reason for study/Clinical History: left pneumonia, empyema Comparison Study: CT CHEST WITHOUT CONTRAST on DOS: 02/01/25 Exam Date: 02/08/2025 11:01 AM TECHNIQUE: Multidetector CT of the chest was performed from the lung apices to the upper abdomen without the use of intravenous contract. Axial, coronal and sagittal multiplanar reformats were performed. Radiation Dose Information: CT Dose: CTDI volume is 8.19 mGy. Dose-length product is 328.01 mGy*cm The dose indicators for CT are the volume Computed Tomography (CT) Dose Index (CTDIvol) and the Dose Length Product (DLP), and are measured in units of mGy and mGy-cm, respectively. These indicators are not patient dose, but values generated from the CT scanner acquisition factors. The report includes radiation exposure data for exposures received during this examination. Findings: Lower neck: Unremarkable. Lungs and Pleura: Small left pleural effusion, slightly increased from prior.. Persistent left lower lobe opacities. Severe upper lung predominant emphysema. New trace right pleural effusion. Lymph nodes: Prominent mediastinal lymph nodes including 8 mm right paratracheal lymph node likely reactive, unchanged from recent prior. Cardiovascular and Mediastinum: No significant pericardial effusion. Scattered coronary calcifications. Osseous and soft tissues: No suspicious osseous lesions. Upper abdomen: Unchanged left adrenal nodule. Small subcentimeter hypodense lesions of the liver, too small to characterize. Small hiatal hernia. IMPRESSION: Persistent left lower lobe diffuse consolidative opacities suggestive of pneumonia. Slight increase in now trace right and small left pleural effusions. The left pleural effusion demonstrates slightly undulated contour, possibly loculated. Underlying empyema is not excluded. Recommend contrast-enhanced CT for further evaluation.
--- NOTE | 2025-02-08 14:26 | MEDREC ---
[facility] ASP Intervention Section I [facility] ASP Intervention: Deescalate AB based on CS (PLEASE CONSIDER DE-ESCALATION OF ANTIBIOTICS (D/C VANCOMYCIN) - BLOOD CULTURE WITH NO GROWTH, SPUTUM CULTURE WITH NORMAL OROPHARYNGEAL SUZAN - ), IV to PO conversion (PLEASE CONSIDER IV TO PO CONVERSION FOR LEVOFLOXACIN (PT TOLERATES FOOD AND IS TAKING PO MEDICATIONS)) STEPHANIE HATCH PHARMACIST Feb 08, 2025 14:26
[2025-02-09] VITALS (15 sets, daily range): BP systolic 103–124; BP diastolic 59–64; PULSE 69–89; RESP 16–18; TEMP 97.6–98.5; O2SAT 90–98
--- NOTE | 2025-02-09 00:19 | DVHPN2 ---
Progress Note - Dictate Date Seen: Feb 08, 2025 Medical Necessity Reason Pt with a Central, PICC or Fol: No Subjective Patient was seen and evaluated in follow up. Patient is on 2 LPM NC. WBC 13.6, CO2 35. CT chest shows persistent left lower lobe diffuse consolidative opacities suggestive of pneumonia, slight increase in now trace right and small left pleural effusions, left pleural effusion demonstrates slightly undulated contour, possibly loculated. Telemetry reviewed. vital signs Vital Sign Date Time Temp Pulse Resp B/P (MAP) Pulse Ox O2 Delivery O2 Flow Rate FiO2 02/08/25 13:00 97.8 78 20 129/54 (79) 93 97.8 02/08/25 09:30 Nasal Cannula 2.0 02/08/25 09:30 28 Total Intake and Output 02/07/25 02/07/25 02/08/25 15:00 23:00 07:00 Intake Total 100 ml 700 ml 250 ml Balance 100 ml 700 ml 250 ml medications Current Medications Medications Dose Ordered Sig/Caleb Route Start Time Stop Time Status Last Admin Dose Admin Acetaminophen/ Hydrocodone Bitart 1 tab Q4HP PRN PO 02/01/25 14:45 Ondansetron HCl 4 mg Q4HP PRN IV 02/01/25 14:45 Docusate Sodium 100 mg BIDPRN PRN PO 02/01/25 14:45 Acetaminophen 650 mg Q6HP PRN PO 02/01/25 14:45 Nitroglycerin 0.4 mg Q5MINP PRN SL 02/01/25 14:45 Morphine Sulfate 2 mg Q30M PRN IV 02/01/25 14:45 Ipratropium [place] 0.5 mg Q6HWA NEB 02/01/25 18:00 02/08/25 11:49 0.5 MG Albuterol 2.5 mg Q6HWA NEB 02/01/25 18:00 02/08/25 11:49 2.5 MG Citalopram Hydrobromide 40 mg DAILY PO 02/02/25 10:00 02/08/25 09:25 40 MG Lisinopril 10 mg DAILY PO 02/02/25 10:00 02/08/25 09:29 10 MG Aspirin 81 mg DAILY PO 02/02/25 10:00 02/08/25 09:25 81 MG Vancomycin HCl 0 ml @ 0 mls/hr PER PHARMACY IV 02/03/25 10:15 Temazepam 15 mg HSPRN PRN PO 02/03/25 10:15 02/07/25 20:17 15 MG Nicotine 1 patch DAILY TD 02/04/25 10:00 02/08/25 09:24 1 PATCH Vancomycin HCl 250 ml @ 200 mls/hr Q24H IV 02/03/25 20:00 02/07/25 20:17 200 MLS/HR Levofloxacin/ Dextrose 150 ml @ 100 mls/hr Q48H IV 02/09/25 10:00 objective GENERAL: Alert and oriented x 3. No acute distress. EYES: PERRL, EOMI. Anicteric. HENT: Moist mucous membranes. LUNGS: Coarse breath sounds. CARDIOVASCULAR: Regular rate and rhythm. ABDOMEN: Soft, nontender and nondistended. EXTREMITIES: No edema. NEUROLOGIC: No focal neurological deficits. SKIN: Warm, dry. laboratory and microbiology Laboratory Tests 02/08/25 06:14 Test 02/08/25 06:14 Range/Units Serum Glucose 82 74-106 mg/dL Problem List Sepsis with left-sided pneumonia/UTI. Acute on chronic hypoxic respiratory failure. NSTEMI, likely type 2 secondary to above. Rule out structural heart disease. 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 Nicotine dependence. Hypertension. Thyroid disease. Assessment/Plan Continued all current supportive medical care. Morphine and [place] for pain management. Aspirin. IV antibiotics as ordered. Lisinopril. Nitro SL. Additional plan as per the hospital course. A total of 25 minutes was spent reviewing the patient record, examining the patient, making a diagnostic and therapeutic plan, discussing this plan with medical personnel, following up on diagnostic studies and following the patient for clinical stability excluding any and all procedures. At least 50% of this time was spent in direct, [id number] contact. Dietary Evaluation Review Comments: Monitor PO intake, lab values, weight trend, and I/O Expected Outcomes/Goals: Intake to meet >75% estimated needs FU 3-5 days Plan discussed with: Patient CORY ABDULLAHI MD Feb 08, 2025 13:41
[2025-02-09 05:59] LABS: Hematocrit 31.6 % (36.0-46.0); Hemoglobin 10.5 g/dL (12.2-16.2); Mean Corpuscular Hemoglobin 28.7 pg (28.0-32.0); Mean Corpuscular Volume 86.7 fL (80.0-100.0); Nucleated Red Blood Cells % 0.0 %
[2025-02-09 06:22] LABS: Chloride 98 mmol/L (98-107); Potassium 3.6 mmol/L (3.5-5.1); Sodium 139 mmol/L (136-145)
[2025-02-09 06:23] LABS: Anion Gap 8 (5-15); Carbon Dioxide 33 mmol/L (20-31)
[2025-02-09 06:27] LABS: Calcium 8.6 mg/dL (8.7-10.4)
[2025-02-09 06:29] LABS: BUN/Creatinine Ratio 11.5 (10.0-20.0); Blood Urea Nitrogen 10 mg/dL (9-23); Glucose 89 mg/dL (74-106)
--- NOTE | 2025-02-09 10:10 | DVHPN2 ---
Progress Note Date Seen: Feb 09, 2025 Medical Necessity Reason Pt with a Central, PICC or Fol: No Subjective Patient reports: No new complaints Review of Systems: HEENT:Normal, CVS:Normal, RESPIRATORY:Normal, GI:Normal, :Normal, MSK:Normal, NEURO:Normal Objective vital signs Vital Sign Date Time Temp Pulse Resp B/P (MAP) Pulse Ox O2 Delivery O2 Flow Rate FiO2 02/09/25 09:00 98.1 89 17 123/61 (81) 95 98.1 02/09/25 08:24 Nasal Cannula* 2 28 Total Intake and Output 02/08/25 02/08/25 02/09/25 14:59 22:59 06:59 Intake Total 1236 ml 700 ml Balance 1236 ml 700 ml medications Current Medications Medications Dose Ordered Sig/Caleb Route Start Time Stop Time Status Last Admin Dose Admin Acetaminophen/ Hydrocodone Bitart 1 tab Q4HP PRN PO 02/01/25 14:45 Ondansetron HCl 4 mg Q4HP PRN IV 02/01/25 14:45 Docusate Sodium 100 mg BIDPRN PRN PO 02/01/25 14:45 Acetaminophen 650 mg Q6HP PRN PO 02/01/25 14:45 Nitroglycerin 0.4 mg Q5MINP PRN SL 02/01/25 14:45 Morphine Sulfate 2 mg Q30M PRN IV 02/01/25 14:45 Ipratropium [place] 0.5 mg Q6HWA NEB 02/01/25 18:00 02/09/25 06:30 0.5 MG Albuterol 2.5 mg Q6HWA NEB 02/01/25 18:00 02/09/25 06:30 2.5 MG Citalopram Hydrobromide 40 mg DAILY PO 02/02/25 10:00 02/09/25 08:57 40 MG Lisinopril 10 mg DAILY PO 02/02/25 10:00 02/09/25 08:58 10 MG Aspirin 81 mg DAILY PO 02/02/25 10:00 02/09/25 08:56 81 MG Vancomycin HCl 0 ml @ 0 mls/hr PER PHARMACY IV 02/03/25 10:15 Temazepam 15 mg HSPRN PRN PO 02/03/25 10:15 02/08/25 20:12 15 MG Nicotine 1 patch DAILY TD 02/04/25 10:00 02/09/25 09:01 1 PATCH Vancomycin HCl 250 ml @ 200 mls/hr Q24H IV 02/03/25 20:00 02/08/25 20:12 200 MLS/HR Levofloxacin/ Dextrose 150 ml @ 100 mls/hr Q48H IV 02/09/25 10:00 02/09/25 08:58 100 MLS/HR Examination: GENERAL:Normal, HEENT:Normal, NECK:Normal, LUNGS:Normal, LUNGS:Abnormal (on oxygen, left decreased sounds), CVS:Normal, ABDOMEN:Normal, MSK:Normal, SKIN:Normal, NEURO:Normal, :Normal laboratory and microbiology Laboratory Tests 02/09/25 05:21 Test 02/09/25 05:21 Range/Units Serum Glucose 89 74-106 mg/dL Microbiology Date/Time Source Procedure Growth Status 02/03/25 23:45 Sputum Gram Stain - Final Complete 02/03/25 23:45 Sputum Respiratory Culture - Final Complete 02/01/25 10:14 Blood Blood Culture - Final NO GROWTH AFTER 5 DAYS OF INCUBATION. Complete Problem List/Assessment/Plan Problem List/Assessment/Plan #1 acute resp failure: cont oxygen #2 sepsis with left pneumonia- gram positive/neg: iv antibiotics, ct chest #3 copd with exacerbation : bronchodilators #4 htn #5 tobacco abuse: advised to quit, nicotine patch- time spent 12 mins #6 nstemi ?type 2: per cardiology #7 hypokalemia: improved #8 left empyema: radiology consult advance care planning- full code- time spent 18 mins unstable for transfer long dw daughter- reviewed results and plan of care Plan discussed with: Patient, Daughter My Orders My Orders Orders - MONIKA ALANIZ MD Procedure Category Date Status Time Chest Without Contrast CT 02/08/25 Resulted 10:19 Vancomycin,Trough LAB 02/09/25 Logged 19:00 May Shower BRIGHT 02/08/25 In Process 18:09 Creatinine LAB 02/10/25 Verified 04:00 * Radiologist Consult CONS 02/09/25 Transmitted 10:07 Complete Blood Count LAB 02/10/25 Verified 06:00 Dietary Evaluation Review Comments: Monitor PO intake, lab values, weight trend, and I/O Expected Outcomes/Goals: Intake to meet >75% estimated needs FU 3-5 days Date of Service: Feb 09, 2025 Billing Provider: MONIKA ALANIZ MD Common Visit Codes: [id number] INP/OBS CARE(HIGH) MONIKA ALANIZ MD Feb 09, 2025 10:10
[2025-02-09] MEDS: fentaNYL CITRATE 100 MCG/2 ML VL IV ONE (11:00)
[2025-02-09] MEDS: MIDAZOLAM HCL 2MG/2ML 2ml VIAL (1mg/ml) IV ONE (11:00)
[2025-02-09 11:40] LABS: INR 1.03 (0.9-1.15); Partial Thromboplastin Time 28.2 SEC (24.5-34.5); Prothrombin Time 10.9 sec (9.3-11.8)
[2025-02-09] MEDS: LIDOCAINE 2%HCL (LOCAL ANESTH.) INJ 10ml MDV ONE (12:09)
--- NOTE | 2025-02-09 13:30 | DVH ---
US US GUIDANCE FOR NEEDLE PLACEME, HISTORY: CHEST TUBE PLACEMENT for complex parapneumonia effusion, concern for developing empyema. COMPARISON: None PROCEDURE: Informed consent was obtained. The patient was placed supine/left side up on the CT scanner. The left pleural fluid was localized under US/CT scan and the overlying skin prepped with chlorhexidine which was allowed to dry and draped in the usual sterile fashion and infiltrated with Xylocaine. Time out was performed. With CT guidance, a 19-gauge centesis needle catheter was advanced via trans-pleural approach into the fluid collection. Following aspiration of a small amount of fluid, a 0.035 wire was advanced into the fluid collection. Placement was confirmed with CT scan. After serial dilatation, a 8.5 [place] multipurpose pigtail drain was placed into the collection. Approximately 600 cc of cloudy serous fluid was aspirated, with specimen sent for appropriate laboratory/cytology/laboratory and cytology evaluation. The drain was sutured at the skin surface and connected to a PleurEvac drainage container. No immediate complication was noted. Post procedure CT imaging through the drain site was obtained. DLP = 2289 mGy-cm. FINDINGS: Limited CT scan of through the chest demonstrates a small to moderate sized loculated left pleural effusion collection appears loculated with septations. Post procedure scan shows pigtail drain within the left pleural space, which is decreased in size. No immediate complication was identified. IMPRESSION: US/ CT guided placement of 8 sinhala pigtail drain into a loculated left parapneumonic fluid collection with 600 mL removed. PLAN: Continuous low wall suction. Daily chest x ray.
--- NOTE | 2025-02-09 13:51 | DVH ---
HISTORY: CHEST TUBE PLACEMENT for complex parapneumonia effusion, concern for developing empyema. COMPARISON: None PROCEDURE: Informed consent was obtained. The patient was placed supine/left side up on the CT scanner. The left pleural fluid was localized under US/CT scan and the overlying skin prepped with chlorhexidine which was allowed to dry and draped in the usual sterile fashion and infiltrated with Xylocaine. Time out was performed. With CT guidance, a 19-gauge centesis needle catheter was advanced via trans-pleural approach into the fluid collection. Following aspiration of a small amount of fluid, a 0.035 wire was advanced into the fluid collection. Placement was confirmed with CT scan. After serial dilatation, a 8.5 [place] multipurpose pigtail drain was placed into the collection. Approximately 600 cc of cloudy serous fluid was aspirated, with specimen sent for appropriate laboratory/cytology/laboratory and cytology evaluation. The drain was sutured at the skin surface and connected to a PleurEvac drainage container. No immediate complication was noted. Post procedure CT imaging through the drain site was obtained. DLP = 2289 mGy-cm. FINDINGS: Limited CT scan of through the chest demonstrates a small to moderate sized loculated left pleural effusion collection appears loculated with septations. Post procedure scan shows pigtail drain within the left pleural space, which is decreased in size. No immediate complication was identified. IMPRESSION: US/ CT guided placement of 8 [place] pigtail drain into a loculated left parapneumonic fluid collection with 600 mL removed. PLAN: Continuous low wall suction. Daily chest x ray.
--- NOTE | 2025-02-09 15:30 | DVH ---
CHEST RADIOGRAPH Indication: POST CHEST TUBE PLACEMENT Technique: Single frontal view of the chest was obtained Comparison: XY CHEST PORTABLE on DOS: 02/07/25, XY CHEST PORTABLE on DOS: 02/03/25, XY CHEST PORTABLE on DOS: 02/01/25 FINDINGS: Lines and Tubes: Pigtail chest tube in place along the left base. Minimal residual pneumothorax along the left lower lateral chest wall. Lungs: No focal consolidation. Pleura: No significant residual left pleural effusion seen on this single AP view chest x-ray. No pneumothorax. Cardiomediastinal contours: Unremarkable Bones: No acute osseous abnormality. IMPRESSION: 1. Left-sided pigtail chest tube in place with no significant residual pleural effusion noted on this AP chest x-ray. 2. May be small residual pneumothorax along the lateral chest wall in the left base or this may represent skin fold.
--- NOTE | 2025-02-09 23:44 | DVHPN2 ---
Progress Note - Dictate Date Seen: Feb 09, 2025 Medical Necessity Reason Pt with a Central, PICC or Fol: No Subjective Patient was seen and evaluated in follow up. Patient is on 2 LPM NC. Patient underwent CT guided placement of 8 vietnamese pigtail drain into a loculated left parapneumonic fluid collection with 600 mL removed. Chest x-ray shows left-sided pigtail chest tube in place with no significant residual pleural effusion noted, may be small residual pneumothorax along the lateral chest wall in the left base or this may represent skin fold. WBC 13.1, CO2 33, CA 8.6. Telemetry reviewed. vital signs Vital Sign Date Time Temp Pulse Resp B/P (MAP) Pulse Ox O2 Delivery O2 Flow Rate FiO2 02/09/25 13:00 97.9 84 16 121/64 (83) 94 97.9 02/09/25 12:02 Nasal Cannula* 2 28 Total Intake and Output 02/08/25 02/08/25 02/09/25 15:00 23:00 07:00 Intake Total 1236 ml 700 ml Balance 1236 ml 700 ml medications Current Medications Medications Dose Ordered Sig/Caleb Route Start Time Stop Time Status Last Admin Dose Admin Acetaminophen/ Hydrocodone Bitart 1 tab Q4HP PRN PO 02/01/25 14:45 Ondansetron HCl 4 mg Q4HP PRN IV 02/01/25 14:45 Docusate Sodium 100 mg BIDPRN PRN PO 02/01/25 14:45 Acetaminophen 650 mg Q6HP PRN PO 02/01/25 14:45 Nitroglycerin 0.4 mg Q5MINP PRN SL 02/01/25 14:45 Morphine Sulfate 2 mg Q30M PRN IV 02/01/25 14:45 Ipratropium [place] 0.5 mg Q6HWA NEB 02/01/25 18:00 02/09/25 12:02 0.5 MG Albuterol 2.5 mg Q6HWA [facility] 02/01/25 18:00 02/09/25 12:02 2.5 MG Citalopram Hydrobromide 40 mg DAILY PO 02/02/25 10:00 02/09/25 08:57 40 MG Lisinopril 10 mg DAILY PO 02/02/25 10:00 02/09/25 08:58 10 MG Aspirin 81 mg DAILY PO 02/02/25 10:00 02/09/25 08:56 81 MG Vancomycin HCl 0 ml @ 0 mls/hr PER PHARMACY IV 02/03/25 10:15 Temazepam 15 mg HSPRN PRN PO 02/03/25 10:15 02/08/25 20:12 15 MG Nicotine 1 patch DAILY TD 02/04/25 10:00 02/09/25 09:01 1 PATCH Vancomycin HCl 250 ml @ 200 mls/hr Q24H IV 02/03/25 20:00 02/08/25 20:12 200 MLS/HR Levofloxacin/ Dextrose 150 ml @ 100 mls/hr Q48H IV 02/09/25 10:00 02/09/25 08:58 100 MLS/HR objective GENERAL: Alert and oriented x 3. No acute distress. EYES: PERRL, EOMI. Anicteric. HENT: Moist mucous membranes. LUNGS: Coarse breath sounds. CARDIOVASCULAR: Regular rate and rhythm. ABDOMEN: Soft, nontender and nondistended. EXTREMITIES: No edema. NEUROLOGIC: No focal neurological deficits. SKIN: Warm, dry. laboratory and microbiology Laboratory Tests 02/09/25 05:21 Test 02/09/25 05:21 Range/Units Serum Glucose 89 74-106 mg/dL Problem List Sepsis with left-sided pneumonia/UTI. Acute on chronic hypoxic respiratory failure. NSTEMI, likely type 2 secondary to above. Rule out structural heart disease. 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 Nicotine dependence. Hypertension. Thyroid disease. Assessment/Plan Continued all current supportive medical care. Morphine and [place] for pain management. Aspirin. IV antibiotics as ordered. Lisinopril. Nitro SL. Additional plan as per the hospital course. A total of 25 minutes was spent reviewing the patient record, examining the patient, making a diagnostic and therapeutic plan, discussing this plan with medical personnel, following up on diagnostic studies and following the patient for clinical stability excluding any and all procedures. At least 50% of this time was spent in direct, [id number] contact. Dietary Evaluation Review Comments: Monitor PO intake, lab values, weight trend, and I/O Expected Outcomes/Goals: Intake to meet >75% estimated needs FU 3-5 days Plan discussed with: Patient CORY ABDULLAHI MD Feb 09, 2025 14:00
[2025-02-10] VITALS (16 sets, daily range): BP systolic 117–127; BP diastolic 58–73; PULSE 76–95; RESP 18–20; TEMP 97.4–98.2; O2SAT 92–100
[2025-02-10] MEDS: HYDROcodone-ACET 5/325MG TAB PO PRN (01:25)
[2025-02-10 06:45] LABS: Hematocrit 30.9 % (36.0-46.0); Hemoglobin 10.3 g/dL (12.2-16.2); Mean Corpuscular Hemoglobin 29.0 pg (28.0-32.0); Mean Corpuscular Volume 86.8 fL (80.0-100.0); Nucleated Red Blood Cells % 0.0 %
[2025-02-10 12:07] LABS: Glucose, Body Fluid 76.0 mg/dL (.); LD, Body Fluid 157.0 IU/L (.)
--- NOTE | 2025-02-10 16:12 | DVHPNRES ---
Progress Note Date Seen: Feb 10, 2025 Resident Creating Document: FRANNIE ESTRELLA RESIDENT Has the PT tested + for MRSA If YES, has PT been informed?: No Medical Necessity Reason Pt with a Central, PICC or Fol: No Subjective Review of Systems Patient seen and examined at bedside. Patient is currently on 2 L/min of oxygen through nasal cannula. Patient states that he is feeling well overall, patient stated that he is slightly improving respiratory chandra and denies any chest pain, fever or chills. Chest tube is draining 200 cc in the bag so far. Thoracentesis was performed on 02/09/2025 were 600 cc of fluid were removed. We are still pending for pleural fluid analysis for glucose, total protein and fluid LDH to determine exudate versus transudate. Due to diffuse left lower lobe opacities, most likely we will be an exudate due to an empyema. We will continue vancomycin and levofloxacin. We will also continue albuterol and ipratropium med nebs. Patient reports pain when taking deep breathing especially at the left lung base were the chest tube is placed. Patient still on stable to transfer to [place]. ROS Constitutional: Denies weight loss, fever and chills. HEENT: Denies changes in vision and hearing. Respiratory: Reports mild to moderate shortness of breath. Cardiovascular: Reports chest pain on deep breathing especially in the the site of chest tube insertion. Denies palpitations GI: Denies abdominal pain, nausea, vomiting and diarrhea. : Denies dysuria and urinary frequency. Musculoskeletal: Denies myalgias and joint pain Skin: Denies rash and pruritus. Neurological: Denies dizziness, headache, vision or hearing problems Objective vital signs Vital Sign Date Time Temp Pulse Resp B/P (MAP) Pulse Ox O2 Delivery O2 Flow Rate FiO2 02/10/25 12:50 97.4 83 18 117/66 (83) 96 97.4 02/10/25 12:05 Nasal Cannula 2.0 02/10/25 12:05 28 Total Intake and Output 02/09/25 02/09/25 02/10/25 15:00 23:00 07:00 Intake Total 150 ml 500 ml 490 ml Output Total 91 ml Balance 150 ml 500 ml 399 ml medications Current Medications Medications Dose Ordered Sig/Caleb Route Start Time Stop Time Status Last Admin Dose Admin Acetaminophen/ Hydrocodone [place] 1 tab Q4HP PRN PO 02/01/25 14:45 02/10/25 01:25 1 TAB Ondansetron HCl 4 mg Q4HP PRN IV 02/01/25 14:45 Docusate Sodium 100 mg BIDPRN PRN PO 02/01/25 14:45 Acetaminophen 650 mg Q6HP PRN PO 02/01/25 14:45 Nitroglycerin 0.4 mg Q5MINP PRN SL 02/01/25 14:45 Morphine Sulfate 2 mg Q30M PRN IV 02/01/25 14:45 Ipratropium [place] 0.5 mg Q6HWA [facility] 02/01/25 18:00 02/10/25 12:05 0.5 MG Albuterol 2.5 mg Q6HWA [facility] 02/01/25 18:00 02/10/25 12:05 2.5 MG Citalopram Hydrobromide 40 mg DAILY PO 02/02/25 10:00 02/10/25 08:52 40 MG Lisinopril 10 mg DAILY PO 02/02/25 10:00 02/10/25 08:59 10 MG Aspirin 81 mg DAILY PO 02/02/25 10:00 02/10/25 08:52 81 MG Vancomycin HCl 0 ml @ 0 mls/hr PER PHARMACY IV 02/03/25 10:15 Nicotine 1 patch DAILY TD 02/04/25 10:00 02/10/25 08:51 1 PATCH Vancomycin HCl 250 ml @ 200 mls/hr Q24H IV 02/03/25 20:00 02/09/25 22:08 200 MLS/HR Levofloxacin/ Dextrose 100 ml @ 66.667 mls/ hr DAILY IV 02/10/25 10:00 02/10/25 08:51 66.667 MLS/HR Examination Physical Examination General: Patient alert and oriented in person, place and time. Patient following commands. HEENT: Normocephalic, atraumatic, moist mucous membranes Respiratory/pulmonary: Decreased breath sounds of the left lung base, rest of lung mcfadden are grossly clear. No wheezes at this time. This is a chest tube in the left lung lateral side. Cardiovascular: Normal heart sounds S1 and S2 with no associated murmurs Abdomen: Abdomen nondistended, there is no pain to palpation in any of the abdominal quadrants, no palpable masses. Extremities: There is no peripheral edema present at the lower extremities. Skin: No rashes or pruritus, there is no sacral edema present at this time. Neurological: Intact cranial nerves with no focal neurologic deficits laboratory and microbiology Laboratory Tests 02/10/25 05:34 02/09/25 05:21 Test 02/09/25 05:21 Range/Units Serum Glucose 89 74-106 mg/dL Microbiology Date/Time Source Procedure Growth Status 02/09/25 13:25 Pleural Fluid Gram Stain - Final Resulted 02/09/25 13:25 Pleural Fluid Aerobic Culture - Preliminary No growth Resulted 02/03/25 23:45 Sputum Gram Stain - Final Complete 02/03/25 23:45 Sputum Respiratory Culture - Final Complete 02/01/25 10:14 Blood Blood Culture - Final NO GROWTH AFTER 5 DAYS OF INCUBATION. Complete Labs and/or images reviewed: Labs reviewed by me, Image(s) reviewed by me Problem List/Assessment/Plan Problem List/Assessment/Plan Assessment/plan Sepsis due to Gram-positive/Gram-negative bacterial pneumonia possible empyema Acute hypoxic respiratory failure likely due to Acute Gram-positive/Gram-negative bacterial pneumonia Possible acute empyema Left-sided loculated pleural effusion with possible empyema COPD exacerbation Status post left-sided chest tube placement NSTEMI likely type 2 Primary hypertension Hypokalemia Chronic tobacco abuse Plan -today's chest x-ray was reviewed there is slightly improved left lower lobe opacities, chest tube is in place -continue IV levofloxacin and vancomycin -still pending for pleural fluid analysis of glucose, total protein and fluid LDH to confirm exudate versus transudate -chest tube is drained 200 cc in the pleura bag so far -patient is still on 2 L of oxygen through nasal cannula -we will monitor future chest x-rays and wait for pending cultures. -continue albuterol and ipratropium med nebs -we will continue current medical management. -counseled on tobacco use cessation for 16 minutes Unstable to transfer to [place] at this point Goals of care discussed with the patient at bedside for 20 minutes, full code Plan discussed with Dr. Escoto Plan discussed with: Patient, Other (Nurse) Dietary Evaluation Review Comments: Monitor PO intake, lab values, weight trend, and I/O Expected Outcomes/Goals: Intake to meet >75% estimated needs FU 3-5 days Date of Service: Feb 10, 2025 Billing Provider: SAVANNA ESCOTO MD Common Visit Codes: [id number] INP/OBS CARE(HIGH) Secondary Visit Codes: [id number] CHNG SMOKING >10MIN (16 minutes), 31060- ADVANCED CARE PLAN 30 MINUTES (20 minutes) FRANNIE ESTRELLA RESIDENT Feb 10, 2025 16:12 SAVANNA ESCOTO MD Feb 14, 2025 08:31
[2025-02-11] VITALS (14 sets, daily range): BP systolic 102–131; BP diastolic 58–71; PULSE 73–83; RESP 16–18; TEMP 96.5–98.4; O2SAT 92–98
--- NOTE | 2025-02-11 00:04 | DVHPN2 ---
Progress Note - Dictate Date Seen: Feb 10, 2025 Has the PT tested + for MRSA If YES, has PT been informed?: No Medical Necessity Reason Pt with a Central, PICC or Fol: No Subjective Patient was seen and evaluated in follow up. Patient is on 2 LPM NC. Patient reports left sided chest pain when taking deep breathing due to chest tube. Chest tube is draining 200 cc in the bag so far. WBC 13.1, CO2 33. Telemetry reviewed. vital signs Vital Sign Date Time Temp Pulse Resp B/P (MAP) Pulse Ox O2 Delivery O2 Flow Rate FiO2 02/10/25 21:03 92 18 119/68 95 2.0 28 02/10/25 21:00 98.2 98.2 02/10/25 19:50 Nasal Cannula* Total Intake and Output 02/10/25 02/10/25 02/11/25 15:00 23:00 07:00 Intake Total 480 ml Balance 480 ml medications Current Medications Medications Dose Ordered Sig/Caleb Route Start Time Stop Time Status Last Admin Dose Admin Ondansetron HCl 4 mg Q4HP PRN IV 02/01/25 14:45 Docusate Sodium 100 mg BIDPRN PRN PO 02/01/25 14:45 Acetaminophen 650 mg Q6HP PRN PO 02/01/25 14:45 Nitroglycerin 0.4 mg Q5MINP PRN SL 02/01/25 14:45 Ipratropium [place] 0.5 mg Q6HWA [facility] 02/01/25 18:00 02/10/25 19:29 0.5 MG Albuterol 2.5 mg Q6HWA [facility] 02/01/25 18:00 02/10/25 19:28 2.5 MG Citalopram Hydrobromide 40 mg DAILY PO 02/02/25 10:00 02/10/25 08:52 40 MG Lisinopril 10 mg DAILY PO 02/02/25 10:00 02/10/25 08:59 10 MG Aspirin 81 mg DAILY PO 02/02/25 10:00 02/10/25 08:52 81 MG Vancomycin HCl 0 ml @ 0 mls/hr PER PHARMACY IV 02/03/25 10:15 Nicotine 1 patch DAILY TD 02/04/25 10:00 02/10/25 08:51 1 PATCH Vancomycin HCl 250 ml @ 200 mls/hr Q24H IV 02/03/25 20:00 02/10/25 21:59 200 MLS/HR Levofloxacin/ Dextrose 100 ml @ 66.667 mls/ hr DAILY IV 02/10/25 10:00 02/10/25 08:51 66.667 MLS/HR objective GENERAL: Alert and oriented x 3. No acute distress. EYES: PERRL, EOMI. Anicteric. HENT: Moist mucous membranes. LUNGS: Coarse breath sounds. CARDIOVASCULAR: Regular rate and rhythm. ABDOMEN: Soft, nontender and nondistended. EXTREMITIES: No edema. NEUROLOGIC: No focal neurological deficits. SKIN: Warm, dry. laboratory and microbiology Laboratory Tests 02/10/25 05:34 02/09/25 05:21 Test 02/09/25 05:21 Range/Units Serum Glucose 89 74-106 mg/dL Problem List Sepsis with left-sided pneumonia/UTI. Acute on chronic hypoxic respiratory failure. NSTEMI, likely type 2 secondary to above. Rule out structural heart disease. 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 Nicotine dependence. Hypertension. Thyroid disease. Assessment/Plan Continued all current supportive medical care. Morphine and [place] for pain management. Aspirin. IV antibiotics as ordered. Lisinopril. Nitro SL. Additional plan as per the hospital course. A total of 25 minutes was spent reviewing the patient record, examining the patient, making a diagnostic and therapeutic plan, discussing this plan with medical personnel, following up on diagnostic studies and following the patient for clinical stability excluding any and all procedures. At least 50% of this time was spent in direct, [id number] contact. Dietary Evaluation Review Comments: Monitor PO intake, lab values, weight trend, and I/O Expected Outcomes/Goals: Intake to meet >75% estimated needs FU 3-5 days Plan discussed with: Patient CORY ABDULLAHI MD Feb 11, 2025 00:04
[2025-02-11] MEDS: ACETAMINOPHEN 325 MG TAB PO PRN (00:41)
[2025-02-11] MEDS: HYDROcodone-ACET 5/325MG TAB PO ONE (05:28)
[2025-02-11 07:02] LABS: Hematocrit 29.5 % (36.0-46.0); Hemoglobin 10.1 g/dL (12.2-16.2); Mean Corpuscular Hemoglobin 29.7 pg (28.0-32.0); Mean Corpuscular Volume 86.9 fL (80.0-100.0); Nucleated Red Blood Cells % 0.1 %
[2025-02-11 07:43] LABS: Chloride 98 mmol/L (98-107); Potassium 3.8 mmol/L (3.5-5.1); Sodium 139 mmol/L (136-145)
[2025-02-11 07:44] LABS: Anion Gap 7 (5-15); Calcium 8.7 mg/dL (8.7-10.4)
[2025-02-11 07:49] LABS: Carbon Dioxide 34 mmol/L (20-31)
[2025-02-11 07:50] LABS: BUN/Creatinine Ratio 8.8 (10.0-20.0); Blood Urea Nitrogen 10 mg/dL (9-23); Glucose 84 mg/dL (74-106)
--- NOTE | 2025-02-11 10:47 | DVHPNRES ---
Progress Note Date Seen: Feb 11, 2025 Resident Creating Document: FRANNIE ESTRELLA RESIDENT Has the PT tested + for MRSA If YES, has PT been informed?: No Medical Necessity Reason Pt with a Central, PICC or Fol: No Subjective Review of Systems Patient seen and examined at bedside. Patient is currently on 2 L/min of oxygen through nasal cannula. Patient still reports mild shortness of breaths and pain during deep breathing at the left lung base. Chest tube output is 130 cc in the last 24 hours. Pleural fluid analysis came back with glucose at 76, total protein 2.9, fluid LDH 157. We ordered serum LDH, which is still pending. We ordered a chest x-ray to follow up on lung parenchyma especially at the left middle lobe and lower lung base empyema. We will continue vancomycin and levofloxacin until cultures from the pleural fluid are back. Patient still having leukocytosis at 13.5 despite broad-spectrum antibiotics. We will continue current medical therapy at this time. The son and his were present at bedside, we explained hospitalization course, current medical management. All questions and concerns were addressed and answered accordingly. Family knows and agrees with the plan. ROS Constitutional: Denies weight loss, fever and chills. HEENT: Denies changes in vision and hearing. Respiratory: Reports mild shortness of breath. Denies cough. Cardiovascular: Reports chest pain at the left lower lung in the lateral side on deep breathing. Denies palpitations GI: Denies abdominal pain, nausea, vomiting and diarrhea. : Denies dysuria and urinary frequency. Musculoskeletal: Denies myalgias and joint pain Skin: Denies rash and pruritus. Neurological: Denies dizziness, headache, vision or hearing problems Objective vital signs Vital Sign Date Time Temp Pulse Resp B/P (MAP) Pulse Ox O2 Delivery O2 Flow Rate FiO2 02/11/25 10:00 116/58 02/11/25 09:00 96.5 76 18 93 96.5 02/11/25 08:37 Nasal Cannula 2.0 02/11/25 08:37 28 Total Intake and Output 02/10/25 02/10/25 02/11/25 15:00 23:00 07:00 Intake Total 480 ml 550 ml Output Total 131 ml Balance 480 ml 419 ml medications Current Medications Medications Dose Ordered Sig/Caleb Route Start Time Stop Time Status Last Admin Dose Admin Ondansetron HCl 4 mg Q4HP PRN IV 02/01/25 14:45 Docusate Sodium 100 mg BIDPRN PRN PO 02/01/25 14:45 Acetaminophen 650 mg Q6HP PRN PO 02/01/25 14:45 02/11/25 00:41 650 MG Nitroglycerin 0.4 mg Q5MINP PRN SL 02/01/25 14:45 Ipratropium [place] 0.5 mg Q6HWA [facility] 02/01/25 18:00 02/11/25 08:37 0.5 MG Albuterol 2.5 mg Q6HWA [facility] 02/01/25 18:00 02/11/25 08:37 2.5 MG Citalopram Hydrobromide 40 mg DAILY PO 02/02/25 10:00 02/11/25 10:13 40 MG Lisinopril 10 mg DAILY PO 02/02/25 10:00 02/10/25 08:59 10 MG Aspirin 81 mg DAILY PO 02/02/25 10:00 02/11/25 10:13 81 MG Vancomycin HCl 0 ml @ 0 mls/hr PER PHARMACY IV 02/03/25 10:15 Nicotine 1 patch DAILY TD 02/04/25 10:00 02/11/25 10:20 1 PATCH Vancomycin HCl 250 ml @ 200 mls/hr Q24H IV 02/03/25 20:00 02/10/25 21:59 200 MLS/HR Levofloxacin/ Dextrose 100 ml @ 66.667 mls/ hr DAILY IV 02/10/25 10:00 02/11/25 10:13 66.667 MLS/HR Examination Physical Examination General: Patient alert and oriented in person, place and time. Patient following commands. HEENT: Normocephalic, atraumatic, moist mucous membranes Respiratory/pulmonary: Decreased breath sounds of the left lung base, rest of lung mcfadden are grossly clear. No wheezes at this time. This is a chest tube in the left lung lateral side. Cardiovascular: Normal heart sounds S1 and S2 with no associated murmurs Abdomen: Abdomen nondistended, there is no pain to palpation in any of the abdominal quadrants, no palpable masses. Extremities: There is no peripheral edema present at the lower extremities. Skin: No rashes or pruritus, there is no sacral edema present at this time. Neurological: Intact cranial nerves with no focal neurologic deficits laboratory and microbiology Laboratory Tests 02/11/25 05:56 Test 02/11/25 05:56 Range/Units Serum Glucose 84 74-106 mg/dL Microbiology Date/Time Source Procedure Growth Status 02/09/25 13:25 Pleural Fluid Gram Stain - Final Resulted 02/09/25 13:25 Pleural Fluid Aerobic Culture - Preliminary No growth Resulted 02/03/25 23:45 Sputum Gram Stain - Final Complete 02/03/25 23:45 Sputum Respiratory Culture - Final Complete 02/01/25 10:14 Blood Blood Culture - Final NO GROWTH AFTER 5 DAYS OF INCUBATION. Complete Labs and/or images reviewed: Labs reviewed by me, Image(s) reviewed by me Problem List/Assessment/Plan Problem List/Assessment/Plan Assessment/plan Sepsis due to Gram-positive/Gram-negative bacterial pneumonia possible empyema Acute hypoxic respiratory failure likely due to Acute Gram-positive/Gram-negative bacterial pneumonia Possible acute empyema Left-sided loculated pleural effusion with possible empyema COPD exacerbation Status post left-sided chest tube placement NSTEMI likely type 2 Primary hypertension Hypokalemia Chronic tobacco abuse Plan -Ordered chest x-ray today to re-evaluate left lung -continue IV levofloxacin and vancomycin -pleural fluid came back with glucose 76, total protein 2.9, fluid LDH 157. We ordered serum LDH which is still pending. -chest tube is drained 130 cc in the last 24 hours which is still considered significant -patient is still on 2 L of oxygen through nasal cannula -pleural fluid preliminary cultures are showing no growth so far. -continue albuterol and ipratropium med nebs -we will continue current medical management. -counseled on tobacco use cessation Unstable to transfer to [place] at this point Full code status Plan discussed with Dr. Vick Plan discussed with: Patient, Son, Other (Nurse) Dietary Evaluation Review Comments: Monitor PO intake, lab values, weight trend, and I/O Expected Outcomes/Goals: Intake to meet >75% estimated needs FU 3-5 days Date of Service: Feb 11, 2025 Billing Provider: SAVANNA VICK MD Common Visit Codes: [id number] INP/OBS CARE(HIGH) FRANNIE ESTRELLA RESIDENT Feb 11, 2025 10:47 SAVANNA VICK MD Feb 14, 2025 08:33
--- NOTE | 2025-02-11 14:15 | DVHPN2 ---
Progress Note - Dictate Date Seen: Feb 11, 2025 Has the PT tested + for MRSA If YES, has PT been informed?: No Medical Necessity Reason Pt with a Central, PICC or Fol: No Subjective Patient was seen and evaluated in follow up. Patient is on 3 LPM NC. Patient still complaining of left sided chest discomfort at chest tube site. Chest tube output is 130 cc in the last 24 hours. WBC 13.5, CO2 34, BAGGAGE SMASHER 1.13. Telemetry reviewed. vital signs Vital Sign Date Time Temp Pulse Resp B/P (MAP) Pulse Ox O2 Delivery O2 Flow Rate FiO2 02/11/25 13:23 79 16 94 02/11/25 13:00 97.5 131/68 (89) 97.5 02/11/25 10:00 Nasal Cannula 3.0 02/11/25 10:00 32 Total Intake and Output 02/10/25 02/10/25 02/11/25 15:00 23:00 07:00 Intake Total 480 ml 550 ml Output Total 131 ml Balance 480 ml 419 ml medications Current Medications Medications Dose Ordered Sig/Caleb Route Start Time Stop Time Status Last Admin Dose Admin Ondansetron HCl 4 mg Q4HP PRN IV 02/01/25 14:45 Docusate Sodium 100 mg BIDPRN PRN PO 02/01/25 14:45 Acetaminophen 650 mg Q6HP PRN PO 02/01/25 14:45 02/11/25 00:41 650 MG Nitroglycerin 0.4 mg Q5MINP PRN SL 02/01/25 14:45 Ipratropium [place] 0.5 mg Q6HWA [facility] 02/01/25 18:00 02/11/25 13:22 0.5 MG Albuterol 2.5 mg Q6HWA [facility] 02/01/25 18:00 02/11/25 13:23 2.5 MG Citalopram Hydrobromide 40 mg DAILY PO 02/02/25 10:00 02/11/25 10:13 40 MG Lisinopril 10 mg DAILY PO 02/02/25 10:00 02/10/25 08:59 10 MG Aspirin 81 mg DAILY PO 02/02/25 10:00 02/11/25 10:13 81 MG Vancomycin HCl 0 ml @ 0 mls/hr PER PHARMACY IV 02/03/25 10:15 Nicotine 1 patch DAILY TD 02/04/25 10:00 02/11/25 10:20 1 PATCH Vancomycin HCl 250 ml @ 200 mls/hr Q24H IV 02/03/25 20:00 02/10/25 21:59 200 MLS/HR Levofloxacin/ Dextrose 100 ml @ 66.667 mls/ hr DAILY IV 02/10/25 10:00 02/11/25 10:13 66.667 MLS/HR objective GENERAL: Alert and oriented x 3. No acute distress. EYES: PERRL, EOMI. Anicteric. HENT: Moist mucous membranes. LUNGS: Coarse breath sounds. CARDIOVASCULAR: Regular rate and rhythm. ABDOMEN: Soft, nontender and nondistended. EXTREMITIES: No edema. NEUROLOGIC: No focal neurological deficits. SKIN: Warm, dry. laboratory and microbiology Laboratory Tests 02/11/25 05:56 Test 02/11/25 05:56 Range/Units Serum Glucose 84 74-106 mg/dL Problem List Sepsis with left-sided pneumonia/UTI. Acute on chronic hypoxic respiratory failure. NSTEMI, likely type 2 secondary to above. Rule out structural heart disease. 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 Nicotine dependence. Hypertension. Thyroid disease. Assessment/Plan Continued all current supportive medical care. Tylenol for pain management. Aspirin. IV antibiotics as ordered. Nitro SL. Additional plan as per the hospital course. A total of 25 minutes was spent reviewing the patient record, examining the patient, making a diagnostic and therapeutic plan, discussing this plan with medical personnel, following up on diagnostic studies and following the patient for clinical stability excluding any and all procedures. At least 50% of this time was spent in direct, [id number] contact. Dietary Evaluation Review Comments: Monitor PO intake, lab values, weight trend, and I/O Expected Outcomes/Goals: Intake to meet >75% estimated needs FU 3-5 days Plan discussed with: Patient CORY ABDULLAHI MD Feb 11, 2025 14:01
[2025-02-12] VITALS (12 sets, daily range): BP systolic 124–147; BP diastolic 63–75; PULSE 79–94; RESP 16–20; TEMP 97.9–99.4; O2SAT 90–97
[2025-02-12 06:27] LABS: Hematocrit 30.8 % (36.0-46.0); Hemoglobin 10.4 g/dL (12.2-16.2); Mean Corpuscular Hemoglobin 29.1 pg (28.0-32.0); Mean Corpuscular Volume 86.4 fL (80.0-100.0); Nucleated Red Blood Cells % 0.0 %
--- NOTE | 2025-02-12 08:12 | DVH ---
CHEST RADIOGRAPH Indication: reeval eft lung empyema and pleural effusion. Technique: Single frontal view of the chest was obtained COMPARISON: XY CHEST PORTABLE on DOS: 02/09/25, CT CHEST WITHOUT CONTRAST on DOS: 02/09/25, CT CHEST WITHOUT CONTRAST on DOS: 02/08/25, XY CHEST PORTABLE on DOS: 02/07/25, XY CHEST PORTABLE on DOS: 02/03/25 FINDINGS: Lines and Tubes: Left pleural pigtail drainage catheter in-situ. Lungs: Increased interstitial prominence. This may represent pulmonary vascular congestion and/or viral pneumonia. Pleura: Trace left pleural effusion or pleural thickening. No appreciable pneumothorax. Cardiomediastinal contours: Unremarkable Bones: Unremarkable IMPRESSION: Trace left pleural effusion or pleural thickening. No appreciable pneumothorax.
--- NOTE | 2025-02-12 12:26 | DVHINCON2 ---
Date of service: Feb 12, [address] mallory Reason for Consultation chest tube management History of Present Illness HPI 79 yo female, h/o copd/emphysema, smoking, presented with cough, wheezing and shortness of breath. Found to have an infiltrate LLL and parapneumonia effusion requiring chest tube, placed by IR. Home Meds Reported Medications Lisinopril (Lisinopril) 10 Mg Tab, 1 TAB PO DAILY 02/01/25 Citalopram Hydrobromide (Citalopram Hydrobromide) 40 Mg Tab, 1 TAB PO DAILY 02/01/25 Past Medical History Cardiac: No pertinent Hx Pulmonary: COPD, Pneumonia Central Nervous System: No pertinent Hx Hepatobiliary: No pertinent Hx Psychiatric: No pertinent Hx Musculoskeletal: No pertinent Hx Infectious Disease: No peritnent Hx ENT: No pertinent Hx Endocrine: No pertinent Hx Patient Family History: FH: lung cancer G8 MOTHER Review of Systems Constitutional: Malaise, Weakness Ears, Nose, & Throat: No symptom reported Eyes: No symptom reported Pulmonary/Respiratory: Dyspnea, Cough Cardiovascular: No symptom reported Gastrointestinal: No symptom reported Genitourinary: No symptom reported Musculoskeletal: No symptom reported Skin: No symptom reported Psychiatric: No symptom reported H&P Exam Vital Signs Vital Signs Date Time Temp Pulse Resp B/P (MAP) Pulse Ox O2 Delivery O2 Flow Rate FiO2 02/12/25 11:24 140/75 02/12/25 09:00 98.7 88 16 91 98.7 02/12/25 07:29 Nasal Cannula 2.0 02/12/25 07:29 28 General Appeara: Well developed, Well nourished, Normal Appearance Head Exam: Normal inspection Neck Exam: Normal inspection, Non-tender, Normal alignment Eye Exam: bilateral eye Normal inspection, bilateral eye PERRL, bilateral eye EOMI Ear Exam: bilateral ear Auricle normal, bilateral ear Canal normal Nasal Exam: Normal inspection Mouth: Normal Inspection Pulmonary/Respiratory: Normal inspection, Normal breath sounds, Chest non- tender Cardiovascular/Chest: Normal inspection Peripheral Pulses: 4+ carotid (R), 4+ carotid (L) Abdominal Exam: Normal bowel sounds, Soft Labs/Xrays Labs Test 02/12/25 05:33 02/11/25 05:56 02/09/25 18:57 02/09/25 13:25 Range/Units White Blood Count 12.4 H 4.4-10.8 10^3/uL Red Blood Count 3.56 L 4.0-5.20 10^6/uL Hemoglobin 10.4 L 12.2-16.2 g/dL Hematocrit 30.8 L 36.0-46.0 % Mean Corpuscular Volume 86.4 80.0-100.0 fL Mean Corpuscular Hemoglobin 29.1 28.0-32.0 pg Mean Corpuscular Hemoglobin Concent 33.7 32.0-36.0 g/dL Red Cell Distribution Width 14.2 11.8-14.3 % Platelet Count 437 140-450 10^3/uL Mean Platelet Volume 7.6 6.9-10.8 fL Neutrophils (%) (Auto) 80.8 H 37.0-80.0 % Lymphocytes (%) (Auto) 7.9 L 10.0-50.0 % Monocytes (%) (Auto) 10.0 0.0-12.0 % Eosinophils (%) (Auto) 0.7 0.0-7.0 % Basophils (%) (Auto) 0.6 0.0-2.0 % Neutrophils # (Auto) 10.0 H 1.6-8.6 10 ^3/uL Lymphocytes # (Auto) 1.0 0.4-5.4 10 ^3/uL Monocytes # (Auto) 1.2 0-1.3 10 ^3/uL Eosinophils # (Auto) 0.1 0-0.8 10 ^3/uL Basophils # (Auto) 0.1 0-0.2 10 ^3/uL Nucleated Red Blood Cells 0.0 % Creatinine 1.03 H 0.550-1.02 mg/dL Glomerular Filtration Rate Calc 55 >90 mL/min Sodium Level 139 136-145 mmol/L Potassium Level 3.8 3.5-5.1 mmol/L Chloride Level 98 98-107 mmol/L Carbon Dioxide Level 34 H 20-31 mmol/L Anion Gap 7 5-15 Blood Urea Nitrogen 10 9-23 mg/dL BUN/Creatinine Ratio 8.8 L 10.0-20.0 Serum Glucose 84 74-106 mg/dL Calcium Level 8.7 8.7-10.4 mg/dL Lactate Dehydrogenase 199 120-246 U/L Vancomycin Level Trough 15.0 H 5-10 ug/mL Body Fluid Source Pleural fluid Body Fluid pH 8.0 Body Fluid WBC (Manual) 6305 H 0-200 CUMM Body Fluid RBC (Manual) 1355 0-2000 CUMM Body Fluid Mononuclear Cells 6 % Body Fluid Polymorphonuclear Cells 94 H 0-25 % Body Fluid Glucose 76 . mg/dL Body Fluid Total Protein 2.9 . g/dL Body Fluid Lactate Dehydrogenase 157 . IU/L Test 02/09/25 11:00 02/08/25 06:14 02/06/25 14:16 02/04/25 04:31 Range/Units Prothrombin Time 10.9 9.3-11.8 sec Prothrombin Time INR 1.03 0.9-1.15 Activated Partial Thromboplast Time 28.2 24.5-34.5 SEC Differential Total Cells Counted 100.0 100 Neutrophils % (Manual) 71 37.0-80.0 Band Neutrophils % (Manual) 2 Lymphocytes % (Manual) 16 10.0-50.0 Monocytes % (Manual) 10 0-12 Eosinophils % (Manual) 0 0-7 Basophils % (Manual) 0 0.0-2.0 Metamyelocytes % (manual) 0 Myelocytes % (Manual) 1 Promyelocytes % (Manual) 0 Blast Cells % (Manual) 0 Reactive Lymphocytes 0 Platelet Estimate Adequate Blood Gas Specimen Type Arterial Blood Gas Sample Site Right radial Blood Gas Patient Temperature 37.0 Arterial Blood Date Drawn [id number] Arterial Blood pH 7.509 H 7.350-7.450 Arterial Blood Partial Pressure CO2 38.5 32.0-45.0 mmHg Arterial Blood Partial Pressure O2 45.8 *L 83.0-108.0 mmHg Arterial Blood HCO3 30.0 H 21.0-28.0 mmol/L Arterial Blood Oxygen Saturation 83.3 *L 94.0-98.0 % Arterial Blood Base Excess 6.6 H -2.0-3.0 mmol/L Arterial Blood Oxyhemoglobin 82.2 L 94.0-98.0 % Arterial Blood Carboxyhemoglobin 0.9 0.5-1.5 % Arterial Blood Methemoglobin 0.4 0.0-1.5 % Arterial Blood Deoxyhemoglobin 16.5 H 0.0-5.0 % Bart Test Yes Blood Gas Total Hemoglobin 12.90 12.0-16.0 g/dL Blood Gas Modality Room air FiO2 % 21.0 Blood Gas Critical Value Read Back Yes Blood Gas Notified Whom Blood Gas Notified Time [id number] Blood Gas Notified By Millie marx rt Large Platelets Few Anisocytosis (manual) Slight Test 02/03/25 05:09 02/02/25 05:21 02/01/25 20:07 02/01/25 12:05 Range/Units Total Bilirubin 0.2 0.2-1.0 mg/dL Aspartate Amino Transferase (AST) 60 H 13-40 U/L Alanine Aminotransferase (ALT) 42 H 7-40 U/L Alkaline Phosphatase 85 46-116 U/L Total Protein 5.4 L 5.7-8.2 g/dL Albumin 3.0 L 3.2-4.8 g/dL Magnesium Level 2.5 1.6-2.6 mg/dL Influenza Type A Antigen Negative Negative Influenza Type B Antigen Negative Negative SARS-CoV-2 Antigen (Rapid) Negative NEGATIVE D-Dimer, Quantitative 2.74 H 0.0-0.49 mg/L FEU Lactic Acid Level 5.0 *H 0.4-2.0 mmol/L Troponin I High Sensitivity 630 *H </=34 ng/L Triglycerides Level 91 < 150 mg/dL Cholesterol Level 124 < 200 mg/dL LDL Cholesterol 57 < 100 mg/dL HDL Cholesterol 46 40-59 mg/dL Thyroid Stimulating Hormone (TSH) 0.71 0.55-4.78 uIU/mL Test 02/01/25 10:49 02/01/25 07:30 Range/Units Urine Color Light-orange Yellow Urine Clarity Turbid H Clear Urine pH 5.5 5.0-9.0 Urine Specific [place] 1.022 1.001-1.035 Urine Protein 1+ H Negative Urine Ketones Negative Negative Urine Blood 1+ H Negative /uL Urine Nitrite 1+ H Negative Urine Bilirubin Negative Negative Urine Urobilinogen Normal Negative mg/dL Urine Leukocyte Esterase Negative Negative /uL Urine RBC 1 0 - 4 /hpf Urine Microscopic WBC 3 0-5 /HPF Urine Squamous Epithelial Cells Few <5 /hpf Urine Amorphous Crystals Few None Seen /hpf Urine Bacteria Many H None Seen /hpf Urine Hyaline Casts Few 0 - 2 /lpf Urine Mucus Few None Seen Urine Yeast (Budding) Occasional None Seen /hpf Urine Glucose Normal Normal mg/dL Hemoglobin A1c 5.6 <5.7 % A1C B-Type Natriuretic Peptide 406.90 0-100 pg/mL Microbiology Date/Time Source Procedure Growth Status 02/09/25 13:25 Pleural Fluid Gram Stain - Final Resulted 02/09/25 13:25 Pleural Fluid Aerobic Culture - Preliminary No growth Resulted 02/03/25 23:45 Sputum Gram Stain - Final Complete 02/03/25 23:45 Sputum Respiratory Culture - Final Complete 02/01/25 10:14 Blood Blood Culture - Final NO GROWTH AFTER 5 DAYS OF INCUBATION. Complete Assessment/Plan Plan LLL pneumonia acute hypoxemic resp failure copd, emphysema seen and examined images reviewed c/tube minimal out put management plan will remove chest tube dressing home 02 eval prior to dc from pulm stand point ok to dc f/up with regular PCP Plan discussed with: Patient NANCY GIRALDO MD Feb 12, 2025 12:26
--- NOTE | 2025-02-12 12:32 | DVHPN2 ---
Subjective Feeling better this morning with decreasing cough and shortness of breath Reviewed: Care Plan, H&P, Labs, Medications, Previous Orders, Radiology, Other (Consultations) Changes from previous H/P or p: Changes Objective Vitals Vital Signs Date Time Temp Pulse Resp B/P (MAP) Pulse Ox O2 Delivery O2 Flow Rate FiO2 02/12/25 11:24 140/75 02/12/25 09:00 98.7 88 16 91 98.7 02/12/25 07:29 Nasal Cannula 2.0 02/12/25 07:29 28 Intake/Output Intake and Output 02/12/25 07:00 Intake Total 2100 ml Output Total 1 ml Balance 2099 ml Intake Oral 1750 ml IV Total 350 ml Output Chest Tube Drainage Total 1 ml # Voids 8 General Appearance: Alert, Oriented X3, Cooperative, No acute distress HEENT: Atraumatic Lungs: Clear to auscultation, Normal air movement, Other (Functioning left chest tube with less than 50 cc output over 24 hours; was clamped and put under seal with no suction) Cardiovascular: Regular rate, Normal S1, Normal S2, No murmurs Abdomen: Normal bowel sounds, Soft, No tenderness Neuro: Normal speech, Cranial nerves 3-12 NL Psych/Mental Status: Mental status NL, Mood NL Medications Current Medications Medications Dose Ordered Sig/Caleb Route Start Time Stop Time Status Last Admin Dose Admin Ondansetron HCl 4 mg Q4HP PRN IV 02/01/25 14:45 Docusate Sodium 100 mg BIDPRN PRN PO 02/01/25 14:45 Acetaminophen 650 mg Q6HP PRN PO 02/01/25 14:45 02/12/25 00:07 650 MG Nitroglycerin 0.4 mg Q5MINP PRN SL 02/01/25 14:45 Ipratropium [place] 0.5 mg Q6HWA NEB 02/01/25 18:00 02/12/25 07:29 0.5 MG Albuterol 2.5 mg Q6HWA NEB 02/01/25 18:00 02/12/25 07:29 2.5 MG Citalopram Hydrobromide 40 mg DAILY PO 02/02/25 10:00 02/12/25 11:24 40 MG Lisinopril 10 mg DAILY PO 02/02/25 10:00 02/12/25 11:24 10 MG Aspirin 81 mg DAILY PO 02/02/25 10:00 02/12/25 11:24 81 MG Vancomycin HCl 0 ml @ 0 mls/hr PER PHARMACY IV 02/03/25 10:15 Nicotine 1 patch DAILY TD 02/04/25 10:00 02/12/25 11:23 1 PATCH Vancomycin HCl 250 ml @ 200 mls/hr Q24H IV 02/03/25 20:00 02/11/25 20:16 200 MLS/HR Levofloxacin/ Dextrose 100 ml @ 66.667 mls/ hr DAILY IV 02/10/25 10:00 02/12/25 11:21 66.667 MLS/HR Melatonin 5 mg HS PO 02/12/25 22:00 Laboratory Results Laboratory Tests 02/11/25 05:56 02/12/25 05:33 Urinalysis Test 02/01/25 10:49 Urine Color Light-orange (Yellow) Urine Clarity Turbid (Clear) H Urine pH 5.5 (5.0-9.0) Urine Specific [place] 1.022 (1.001-1.035) Urine Protein 1+ (Negative) H Urine Ketones Negative (Negative) Urine Blood 1+ /uL (Negative) H Urine Nitrite 1+ (Negative) H Urine Bilirubin Negative (Negative) Urine Urobilinogen Normal mg/dL (Negative) Urine Leukocyte Esterase Negative /uL (Negative) Urine RBC 1 /hpf (0 - 4) Urine Microscopic WBC 3 /HPF (0-5) Urine Squamous Epithelial Cells Few /hpf (<5) Urine Amorphous Crystals Few /hpf (None Seen) Urine Bacteria Many /hpf (None Seen) H Urine Hyaline Casts Few /lpf (0 - 2) Urine Mucus Few (None Seen) Urine Yeast (Budding) Occasional /hpf (None Urine Glucose Normal mg/dL (Normal) Microbiology Microbiology Date/Time Source Procedure Growth Status 02/09/25 13:25 Pleural Fluid Gram Stain - Final Resulted 02/09/25 13:25 Pleural Fluid Aerobic Culture - Preliminary No growth Resulted 02/03/25 23:45 Sputum Gram Stain - Final Complete 02/03/25 23:45 Sputum Respiratory Culture - Final Complete 02/01/25 10:14 Blood Blood Culture - Final NO GROWTH AFTER 5 DAYS OF INCUBATION. Complete Labs and/or images reviewed: Labs reviewed by me, Image(s) reviewed by me Assessment/Plan Assessment/Plan Covering Dr. Lee: Sepsis with leukocytosis due to Gram-positive versus Gram-negative pneumonia Acute on chronic hypoxic respiratory failure due to Gram-positive versus Gram- negative pneumonia Gram-positive versus Gram-negative pneumonia complicated with left-sided loculated pleural effusion Elevated D-dimer due to above COPD exacerbation due to Gram-positive versus Gram-negative pneumonia Left-sided loculated pleural effusion status post left-sided chest tube placement on February 09, 2025 NSTEMI; demand ischemia; type 2 [place] due to sepsis Hypertensive heart disease Tobacco use disorder Hypokalemia; replaced and resolved Overweight Reviewed the available lab work including ABGs and cultures Reviewed available imaging studies including chest x-rays Continue IV antibiotics Continue oxygen therapy as indicated Consulted pulmonology for left chest tube management Counseled on tobacco use cessation for 16 minutes To continue nicotine patch Counseled the patient on the importance of adopting healthy lifestyle with diet and exercise in order to lose weight Continue telemetry; cardiology is following Continue monitoring Goals of care discussed with the patient and her son for 20 minutes; continues to be full code Unstable to transfer to [facility] Late Entry. This medical document was created using an electronic medical record system with computerized dictation system. Although this document has been carefully reviewed, there might still be some phonetic and typographical errors. These areas are purely typographical due to imperfections of the software programs, and do not reflect any compromise in the patient's medical care. Plan discussed with: Patient, Son, Other (Nurse) My Orders Orders - SAVANNA ESCOTO MD Procedure Category Date Status Time Melatonin (Melatonin) PHA 02/12/25 In Process 22:00 *Consult CONS 02/12/25 Transmitted 10:43 Date of Service: Feb 12, 2025 Billing Provider: SAVANNA ESCOTO MD Common Visit Codes: [id number] INP/OBS CARE(HIGH) Secondary Visit Codes: [id number] CHNG SMOKING >10MIN (16 minutes), 09309- ADVANCED CARE PLAN 30 MINUTES (20 minutes) SAVANNA ESCOTO MD Feb 12, 2025 12:32
--- NOTE | 2025-02-12 18:22 | DVHPN2 ---
Progress Note - Dictate Date Seen: Feb 12, 2025 Has the PT tested + for MRSA If YES, has PT been informed?: No Medical Necessity Reason Pt with a Central, PICC or Fol: No Subjective Patient was seen and evaluated in follow up. Patient is on 2 LPM NC. Chest tube has been successfully removed. 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 Telemetry reviewed. vital signs Vital Sign Date Time Temp Pulse Resp B/P (MAP) Pulse Ox O2 Delivery O2 Flow Rate FiO2 02/12/25 11: 140/75 02/12/25 09:00 98.7 88 16 91 98.7 02/12/25 07:29 Nasal Cannula 2.0 02/12/25 07:29 28 Total Intake and Output 02/11/25 02/11/25 02/12/25 15:00 23:00 07:00 Intake Total 100 ml 1200 ml 800 ml Output Total 1 ml Balance 100 ml 1200 ml 799 ml medications Current Medications Medications Dose Ordered Sig/Caleb Route Start Time Stop Time Status Last Admin Dose Admin Ondansetron HCl 4 mg Q4HP PRN IV 02/01/25 14:45 Docusate Sodium 100 mg BIDPRN PRN PO 02/01/25 14:45 Acetaminophen 650 mg Q6HP PRN PO 02/01/25 14:45 02/12/25 00:07 650 MG Nitroglycerin 0.4 mg Q5MINP PRN SL 02/01/25 14:45 Ipratropium [employer] 0.[address] [facility] 02/01/25 18:00 02/12/25 07:29 0.5 MG Albuterol 2.[address] [facility] 02/01/25 18:00 02/12/25 07:29 2.5 MG Citalopram Hydrobromide 40 mg DAILY PO 02/02/25 10:00 02/12/25 11:24 40 MG Lisinopril 10 mg DAILY PO 02/02/25 10:00 02/12/25 11:24 10 MG Aspirin 81 mg DAILY PO 02/02/25 10:00 02/12/25 11:24 81 MG Vancomycin HCl 0 ml @ 0 mls/hr PER PHARMACY IV 02/03/25 10:15 Nicotine 1 patch DAILY TD 02/04/25 10:00 02/12/25 11:23 1 PATCH Vancomycin HCl 250 ml @ 200 mls/hr Q24H IV 02/03/25 20:00 02/11/25 20:16 200 MLS/HR Levofloxacin/ Dextrose 100 ml @ 66.667 mls/ hr DAILY IV 02/10/25 10:00 02/12/25 11:21 66.667 MLS/HR Melatonin 5 mg HS PO 02/12/25 22:00 objective GENERAL: Alert and oriented x 3. No acute distress. EYES: PERRL, EOMI. Anicteric. HENT: Moist mucous membranes. LUNGS: Coarse breath sounds. CARDIOVASCULAR: Regular rate and rhythm. ABDOMEN: Soft, nontender and nondistended. EXTREMITIES: No edema. NEUROLOGIC: No focal neurological deficits. SKIN: Warm, dry. laboratory and microbiology Laboratory Tests 02/12/25 05:33 02/11/25 05:56 Test 02/11/25 05:56 Range/Units Serum Glucose 84 74-106 mg/dL Problem List Sepsis with left-sided pneumonia/UTI. Acute on chronic hypoxic respiratory failure. NSTEMI, likely type 2 secondary to above. Rule out structural heart disease. 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 Nicotine dependence. Hypertension. Thyroid disease. Assessment/Plan Continued all current supportive medical care. Tylenol for pain management. Aspirin. IV antibiotics as ordered. Nitro SL. Additional plan as per the hospital course. A total of 25 minutes was spent reviewing the patient record, examining the patient, making a diagnostic and therapeutic plan, discussing this plan with medical personnel, following up on diagnostic studies and following the patient for clinical stability excluding any and all procedures. At least 50% of this time was spent in direct, [id number] contact. Dietary Evaluation Review Comments: Monitor PO intake, lab values, weight trend, and I/O Expected Outcomes/Goals: Intake to meet >75% estimated needs FU 3-5 days Plan discussed with: Patient CORY ABDULLAHI MD Feb 12, 2025 12:20
[2025-02-12] MEDS: MELATONIN 5 MG TAB PO SCH (21:19)
[2025-02-13] VITALS (11 sets, daily range): BP systolic 112–139; BP diastolic 62–75; PULSE 55–88; RESP 16–18; TEMP 97.5–98.6; O2SAT 81–99
[2025-02-13 06:35] LABS: Hematocrit 30.7 % (36.0-46.0); Hemoglobin 10.4 g/dL (12.2-16.2); Mean Corpuscular Hemoglobin 29.3 pg (28.0-32.0); Mean Corpuscular Volume 86.6 fL (80.0-100.0); Nucleated Red Blood Cells % 0.1 %
[2025-02-13 07:02] LABS: Alanine Aminotransferase 21 U/L (7-40); Alkaline Phosphatase 53 U/L (46-116); Calcium 8.7 mg/dL (8.7-10.4); Chloride 99 mmol/L (98-107)
[2025-02-13 07:03] LABS: Anion Gap 5 (5-15); BUN/Creatinine Ratio 7.9 (10.0-20.0); Bilirubin, Total 0.4 mg/dL (0.2-1.0); Blood Urea Nitrogen 9 mg/dL (9-23); Glucose 87 mg/dL (74-106); Potassium 3.7 mmol/L (3.5-5.1); Sodium 139 mmol/L (136-145); Total Protein 6.3 g/dL (5.7-8.2)
[2025-02-13 07:08] LABS: Albumin 3.0 g/dL (3.2-4.8); Carbon Dioxide 35 mmol/L (20-31)
--- NOTE | 2025-02-13 08:07 | DVH ---
CHEST RADIOGRAPH Indication: Status post left chest tube. Thank You! Technique: Single frontal view of the chest was obtained COMPARISON: XY CHEST XRAY 1 VIEW on DOS: 02/12/25, XY CHEST PORTABLE on DOS: 02/09/25, CT CHEST WITHOUT CONTRAST on DOS: 02/09/25, CT CHEST WITHOUT CONTRAST on DOS: 02/08/25, XY CHEST PORTABLE on DOS: 02/07/25 FINDINGS: Lines and Tubes: Interval removal of left chest tube. Lungs: Diffuse pulmonary vascular congestion, unchanged. Left basilar subsegmental atelectasis. Pleura: Trace left pleural effusion. No pneumothorax. Cardiomediastinal contours: Unremarkable Bones: Unremarkable IMPRESSION: Interval removal of left chest tube. No pneumothorax. Trace left pleural effusion.
[2025-02-13] MEDS ORDERED: ASPI-325 PO (10:43)
[2025-02-13] MEDS ORDERED: NIC21P TD (10:43)
[2025-02-13] MEDS ORDERED: LEVO500T91 PO (10:45)
--- NOTE | 2025-02-13 14:37 | DVHPN2 ---
Subjective Doing good after removal of left chest tube; mild chest wall pain with no shortness of breath Reviewed: Care Plan, H&P, Labs, Medications, Previous Orders, Radiology, Other (Consultations) Changes from previous H/P or p: Changes Objective Vitals Vital Signs Date Time Temp Pulse Resp B/P (MAP) Pulse Ox O2 Delivery O2 Flow Rate FiO2 02/13/25 13:00 98.2 86 16 139/75 (96) 95 98.2 02/13/25 11:12 Nasal Cannula 3.0 02/13/25 11:12 32 Intake/Output Intake and Output 02/13/25 07:00 Intake Total 1950 ml Balance 1950 ml Intake Oral 1600 ml IV Total 350 ml # Voids 7 # Bowel Movements 1 General Appearance: Alert, Oriented X3, Cooperative, No acute distress HEENT: Atraumatic Lungs: Clear to auscultation, Normal air movement, Other (Left chest tube removal site with no signs of bleeding/leakage/infection) Cardiovascular: Regular rate, Normal S1, Normal S2, No murmurs Abdomen: Normal bowel sounds, Soft, No tenderness Neuro: Normal speech, Cranial nerves 3-12 NL Psych/Mental Status: Mental status NL, Mood NL Medications Current Medications Medications Dose Ordered Sig/Caleb Route Start Time Stop Time Status Last Admin Dose Admin Ondansetron HCl 4 mg Q4HP PRN IV 02/01/25 14:45 Docusate Sodium 100 mg BIDPRN PRN PO 02/01/25 14:45 Acetaminophen 650 mg Q6HP PRN PO 02/01/25 14:45 02/12/25 20:08 650 MG Nitroglycerin 0.4 mg Q5MINP PRN SL 02/01/25 14:45 Ipratropium [place] 0.5 mg Q6HWA NEB 02/01/25 18:00 02/13/25 11:11 0.5 MG Albuterol 2.5 mg Q6HWA [facility] 02/01/25 18:00 02/13/25 11:11 2.5 MG Citalopram Hydrobromide 40 mg DAILY PO 02/02/25 10:00 02/13/25 09:12 40 MG Lisinopril 10 mg DAILY PO 02/02/25 10:00 02/13/25 09:14 10 MG Aspirin 81 mg DAILY PO 02/02/25 10:00 02/13/25 09:13 81 MG Vancomycin HCl 0 ml @ 0 mls/hr PER PHARMACY IV 02/03/25 10:15 Nicotine 1 patch DAILY TD 02/04/25 10:00 02/13/25 09:31 1 PATCH Vancomycin HCl 250 ml @ 200 mls/hr Q24H IV 02/03/25 20:00 02/12/25 20:08 200 MLS/HR Levofloxacin/ Dextrose 100 ml @ 66.667 mls/ hr DAILY IV 02/10/25 10:00 02/13/25 09:12 66.667 MLS/HR Melatonin 5 mg HS PO 02/12/25 22:00 02/12/25 21:19 5 MG Laboratory Results Laboratory Tests 02/13/25 05:55 Chemistry Test 02/13/25 05:55 Albumin 3.0 g/dL (3.2-4.8) L Calcium Level 8.7 mg/dL (8.7-10.4) Total Protein 6.3 g/dL (5.7-8.2) LFT Test 02/13/25 05:55 Alanine Aminotransferase (ALT) 21 U/L (7-40) Alkaline Phosphatase 53 U/L (46-116) Aspartate Amino Transferase (AST) 19 U/L (13-40) Total Bilirubin 0.4 mg/dL (0.2-1.0) Urinalysis Test 02/01/25 10:49 Urine Color Light-orange (Yellow) Urine Clarity Turbid (Clear) H Urine pH 5.5 (5.0-9.0) Urine Specific [place] 1.022 (1.001-1.035) Urine Protein 1+ (Negative) H Urine Ketones Negative (Negative) Urine Blood 1+ /uL (Negative) H Urine Nitrite 1+ (Negative) H Urine Bilirubin Negative (Negative) Urine Urobilinogen Normal mg/dL (Negative) Urine Leukocyte Esterase Negative /uL (Negative) Urine RBC 1 /hpf (0 - 4) Urine Microscopic WBC 3 /HPF (0-5) Urine Squamous Epithelial Cells Few /hpf (<5) Urine Amorphous Crystals Few /hpf (None Seen) Urine Bacteria Many /hpf (None Seen) H Urine Hyaline Casts Few /lpf (0 - 2) Urine Mucus Few (None Seen) Urine Yeast (Budding) Occasional /hpf (None Urine Glucose Normal mg/dL (Normal) Microbiology Microbiology Date/Time Source Procedure Growth Status 02/09/25 13:25 Pleural Fluid Gram Stain - Final Resulted 02/09/25 13:25 Pleural Fluid Aerobic Culture - Preliminary No growth Resulted 02/03/25 23:45 Sputum Gram Stain - Final Complete 02/03/25 23:45 Sputum Respiratory Culture - Final Complete 02/01/25 10:14 Blood Blood Culture - Final NO GROWTH AFTER 5 DAYS OF INCUBATION. Complete Labs and/or images reviewed: Labs reviewed by me, Image(s) reviewed by me Assessment/Plan Assessment/Plan Covering Dr. Lee: Sepsis with leukocytosis due to Gram-positive versus Gram-negative pneumonia Acute on chronic hypoxic respiratory failure due to Gram-positive versus Gram- negative pneumonia Gram-positive versus Gram-negative pneumonia complicated with left-sided loculated pleural effusion Elevated D-dimer due to above COPD exacerbation due to Gram-positive versus Gram-negative pneumonia Left-sided loculated pleural effusion status post left-sided chest tube placement on February 09, 2025; removed by pulmonology on February 12, 2025 NSTEMI; demand ischemia; type 2 [place] due to sepsis Hypertensive heart disease Tobacco use disorder Hypokalemia; replaced and resolved Overweight Reviewed the available lab work including ABGs and cultures; leukocytosis resolved on February 13, 2025 Reviewed available imaging studies including chest x-rays; morning chest x-ray on February 13, 2025 showed no pneumothorax and trace left pleural effusion Was on IV antibiotics; will be discharged on levofloxacin Continue oxygen therapy as indicated; the patient's son will bring home oxygen for transportation to home Pulmonology removed left chest tube on February 12, 2025 Counseled on tobacco use cessation; will be discharged on nicotine patch Counseled the patient on the importance of adopting healthy lifestyle with diet and exercise in order to lose weight Continue telemetry; cardiology is following Advised to follow up with [facility] within 1 to 2 weeks from discharge including primary care provider and 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 This medical document was created using an electronic medical record system with computerized dictation system. Although this document has been carefully reviewed, there might still be some phonetic and typographical errors. These areas are purely typographical due to imperfections of the software programs, and do not reflect any compromise in the patient's medical care. Plan discussed with: Patient, Other (Nurse) My Orders Orders - SAVANNA ESCOTO MD Procedure Category Date Status Time Dme: Walker DME 02/13/25 Transmitted 10:22 * Wood Model Builder CONS 02/13/25 Transmitted Consult Discharge DISCHARGE 02/13/25 Transmitted 11:12 Date of Service: Feb 13, 2025 Billing Provider: SAVANNA ESCOTO MD Common Visit Codes: [id number] INP/OBS CARE(MOD) SAVANNA ESCOTO MD Feb 13, 2025 14:37
--- NOTE | 2025-02-13 14:41 | DVHDS2 ---
Discharge Summary Date of Admission Feb 01, 2025 at 14:58 Date of Discharge: Feb 13, 2025 Admitting Diagnosis Shortness of breath Wounds: Left chest tube removal site wound; with no bleeding/leakage/infection Labs/Diagnostic Data: Laboratory Results Test 02/13/25 05:55 02/12/25 19:08 02/11/25 05:56 02/09/25 13:25 White Blood Count 9.3 10^3/uL (4.4-10.8) Red Blood Count 3.55 10^6/uL (4.0-5.20) Hemoglobin 10.4 g/dL (12.2-16.2) Hematocrit 30.7 % (36.0-46.0) Mean Corpuscular Volume 86.6 fL (80.0-100.0) Mean Corpuscular Hemoglobin 29.3 pg (28.0-32.0) Mean Corpuscular Hemoglobin Concent 33.9 g/dL (32.0-36.0) Red Cell Distribution Width 14.2 % (11.8-14.3) Platelet Count 469 10^3/uL (140-450) Mean Platelet Volume 7.6 fL (6.9-10.8) Neutrophils (%) (Auto) 78.4 % (37.0-80.0) Lymphocytes (%) (Auto) 9.5 % (10.0-50.0) Monocytes (%) (Auto) 10.2 % (0.0-12.0) Eosinophils (%) (Auto) 0.9 % (0.0-7.0) Basophils (%) (Auto) 1.0 % (0.0-2.0) Neutrophils # (Auto) 7.3 10 ^3/uL (1.6-8.6) Lymphocytes # (Auto) 0.9 10 ^3/uL (0.4-5.4) Monocytes # (Auto) 0.9 10 ^3/uL (0-1.3) Eosinophils # (Auto) 0.1 10 ^3/uL (0-0.8) Basophils # (Auto) 0.1 10 ^3/uL (0-0.2) Nucleated Red Blood Cells 0.1 % Sodium Level 139 mmol/L (136-145) Potassium Level 3.7 mmol/L (3.5-5.1) Chloride Level 99 mmol/L (98-107) Carbon Dioxide Level 35 mmol/L (20-31) Anion Gap 5 (5-15) Blood Urea Nitrogen 9 mg/dL (9-23) Creatinine 1.14 mg/dL (0.550-1.02) Glomerular Filtration Rate Calc 49 mL/min (>90) BUN/Creatinine Ratio 7.9 (10.0-20.0) Serum Glucose 87 mg/dL (74-106) Calcium Level 8.7 mg/dL (8.7-10.4) Total Bilirubin 0.4 mg/dL (0.2-1.0) Aspartate Amino Transferase (AST) 19 U/L (13-40) Alanine Aminotransferase (ALT) 21 U/L (7-40) Alkaline Phosphatase 53 U/L (46-116) Total Protein 6.3 g/dL (5.7-8.2) Albumin 3.0 g/dL (3.2-4.8) Vancomycin Level Trough 19.4 ug/mL (5-10) Lactate Dehydrogenase 199 U/L (120-246) Body Fluid Source Pleural fluid Body Fluid pH 8.0 Body Fluid WBC (Manual) 6305 CUMM (0-200) Body Fluid RBC (Manual) 1355 CUMM (0-2000) Body Fluid Mononuclear Cells 6 % Body Fluid Polymorphonuclear Cells 94 % (0-25) Body Fluid Glucose 76 mg/dL (.) Body Fluid Total Protein 2.9 g/dL (.) Body Fluid Lactate Dehydrogenase 157 IU/L (.) Test 02/09/25 11:00 02/08/25 06:14 02/06/25 14:16 02/04/25 04:31 Prothrombin Time 10.9 sec (9.3-11.8) Prothrombin Time INR 1.03 (0.9-1.15) Activated Partial Thromboplast Time 28.2 SEC (24.5-34.5) Differential Total Cells Counted 100.0 (100) Neutrophils % (Manual) 71 (37.0-80.0) Band Neutrophils % (Manual) 2 Lymphocytes % (Manual) 16 (10.0-50.0) Monocytes % (Manual) 10 (0-12) Eosinophils % (Manual) 0 (0-7) Basophils % (Manual) 0 (0.0-2.0) Metamyelocytes % (manual) 0 Myelocytes % (Manual) 1 Promyelocytes % (Manual) 0 Blast Cells % (Manual) 0 Reactive Lymphocytes 0 Platelet Estimate Adequate Blood Gas Specimen Type Arterial Blood Gas Sample Site Right radial Blood Gas Patient Temperature 37.0 Arterial Blood Date Drawn [id number] Arterial Blood pH 7.509 (7.350-7.450) Arterial Blood Partial Pressure CO2 38.5 mmHg (32.0-45.0) Arterial Blood Partial Pressure O2 45.8 mmHg (83.0-108.0) Arterial Blood HCO3 30.0 mmol/L (21.0-28.0) Arterial Blood Oxygen Saturation 83.3 % (94.0-98.0) Arterial Blood Base Excess 6.6 mmol/L (-2.0-3.0) Arterial Blood Oxyhemoglobin 82.2 % (94.0-98.0) Arterial Blood Carboxyhemoglobin 0.9 % (0.5-1.5) Arterial Blood Methemoglobin 0.4 % (0.0-1.5) Arterial Blood Deoxyhemoglobin 16.5 % (0.0-5.0) Bart Test Yes Blood Gas Total Hemoglobin 12.90 g/dL (12.0-16.0) Blood Gas Modality Room air FiO2 % 21.0 Blood Gas Critical Value Read Back Yes Blood Gas Notified Whom Blood Gas Notified Time [id number] Blood Gas Notified By Millie marx rt Large Platelets Few Anisocytosis (manual) Slight Test 02/02/25 05:21 02/01/25 20:07 02/01/25 12:05 02/01/25 10:49 Magnesium Level 2.5 mg/dL (1.6-2.6) Influenza Type A Antigen Negative (Negative) Influenza Type B Antigen Negative (Negative) SARS-CoV-2 Antigen (Rapid) Negative (NEGATIVE) D-Dimer, Quantitative 2.74 mg/L FEU (0.0-0.49) Lactic Acid Level 5.0 mmol/L (0.4-2.0) Troponin I High Sensitivity 630 ng/L (</=34) Triglycerides Level 91 mg/dL (< 150) Cholesterol Level 124 mg/dL (< 200) LDL Cholesterol 57 mg/dL (< 100) HDL Cholesterol 46 mg/dL (40-59) Thyroid Stimulating Hormone (TSH) 0.71 uIU/mL (0.55-4.78) Urine Color Light-orange (Yellow) Urine Clarity Turbid (Clear) Urine pH 5.5 (5.0-9.0) Urine Specific [place] 1.022 (1.001-1.035) Urine Protein 1+ (Negative) Urine Ketones Negative (Negative) Urine Blood 1+ /uL (Negative) Urine Nitrite 1+ (Negative) Urine Bilirubin Negative (Negative) Urine Urobilinogen Normal mg/dL (Negative) Urine Leukocyte Esterase Negative /uL (Negative) Urine RBC 1 /hpf (0 - 4) Urine Microscopic WBC 3 /HPF (0-5) Urine Squamous Epithelial Cells Few /hpf (<5) Urine Amorphous Crystals Few /hpf (None Seen) Urine Bacteria Many /hpf (None Seen) Urine Hyaline Casts Few /lpf (0 - 2) Urine Mucus Few (None Seen) Urine Yeast (Budding) Occasional /hpf (None Urine Glucose Normal mg/dL (Normal) Test 02/01/25 07:30 Hemoglobin A1c 5.6 % A1C (<5.7) B-Type Natriuretic Peptide 406.90 pg/mL (0-100) Other Laboratory Tests 02/13/25 05:55 Brief Hx & Hospital Course: A 79-year-old female patient with multiple comorbidities who presented to emergency department with shortness of breath and was found to have pneumonia complicated by a left pleural effusion; treated with IV antibiotics and chest tube was placed on February 09, 2025 and removed on February 12, 2025; continues to need oxygen therapy; will be discharged home and she was stable after removal of the chest tube; to continue home medications; to follow up with [facility] as recommended below. Details as below and as per the rest of EMR. Covering Dr. Lee: Sepsis with leukocytosis due to Gram-positive versus Gram-negative pneumonia Acute on chronic hypoxic respiratory failure due to Gram-positive versus Gram- negative pneumonia Gram-positive versus Gram-negative pneumonia complicated with left-sided loculated pleural effusion Elevated D-dimer due to above COPD exacerbation due to Gram-positive versus Gram-negative pneumonia Left-sided loculated pleural effusion status post left-sided chest tube placement on February 09, 2025; removed by pulmonology on February 12, 2025 NSTEMI; demand ischemia; type 2 DC due to sepsis Hypertensive heart disease Tobacco use disorder Hypokalemia; replaced and resolved Overweight Reviewed the available lab work including ABGs and cultures; leukocytosis resolved on February 13, 2025 Reviewed available imaging studies including chest x-rays; morning chest x-ray on February 13, 2025 showed no pneumothorax and trace left pleural effusion Was on IV antibiotics; will be discharged on levofloxacin Continue oxygen therapy as indicated; the patient's son will bring home oxygen for transportation to home Pulmonology removed left chest tube on February 12, 2025 Counseled on tobacco use cessation; will be discharged on nicotine patch Counseled the patient on the importance of adopting healthy lifestyle with diet and exercise in order to lose weight Continue telemetry; cardiology is following Advised to follow up with [facility] within 1 to 2 weeks from discharge including primary care provider and tobacco wrapping machine tender Physical examination as documented in the progress note of the day of discharge Late Entry. This medical document was created using an electronic medical record system with computerized dictation system. Although this document has been carefully reviewed, there might still be some phonetic and typographical errors. These areas are purely typographical due to imperfections of the software programs, and do not reflect any compromise in the patient's medical care. Consults/Reason for consult Pulmonology for left chest tube management; cardiology for elevated troponin; IR for chest tube placement Operations or Procedures Left chest tube placement by IR on February 09, 2025 and removal by pulmonology on February 13, 2024 Condition at Discharge: Stable Final Diagnosis/Problems List Sepsis due to Gram-positive versus Gram-negative pneumonia Acute on chronic hypoxic respiratory failure due to COPD exacerbation secondary to Gram-positive versus Gram-negative pneumonia; on home oxygen Left pleural effusion status post drainage with chest tube; chest tube was removed on February 12, 2025; repeat chest x-ray in the morning of the day of discharge showed trace left pleural effusion and no pneumothorax Rest as above Discharge Disposition: Home with Health Services (Arranged by [facility]; also has oxygen therapy at home) Discharge Instruct/Medications Diet: Cardiac 2g Na,low cholest Activity: No Restrictions, As Tolerated Follow Up/Referral: To follow up with [facility]; both primary care provider and pulmonology within 1 to 2 weeks Medications: Discharged on levofloxacin for 10 days; also discharged on nicotine patch Scheduled Aspirin (Aspirin Low Dose), 81 MG PO DAILY Citalopram Hydrobromide (Citalopram Hydrobromide), 1 TAB PO DAILY, (Reported) Levofloxacin Hemihydrate (Levofloxacin), 500 MG PO DAILY Lisinopril (Lisinopril), 1 TAB PO DAILY, (Reported) Nicotine (Nicoderm 21MG/24HR), 1 PATCH TD DAILY Discharge Statement: "Patient was advised to return to the ER or call 911 if any headaches, dizziness, shortness of breath, chest pain, abdominal pain, bleeding, fevers, or worsening of medical condition. Patient was counseled about treatment plan, medications, possible side effects, patientverbalized understanding. All questions were answered to the best of my ability. This discharge took greater then 30 minutes in planning, reviewing documentation, counseling the patient, and discussing with other team members." DME: Diagnosis: DME: front wheel walker please deliver to pt's home address: [id number] ASSESSMENT ASSESSMENT Assessment Sepsis due to Gram-positive versus Gram-negative pneumonia Acute on chronic hypoxic respiratory failure due to COPD exacerbation secondary to Gram-positive versus Gram-negative pneumonia; on home oxygen Left pleural effusion status post drainage with chest tube; chest tube was removed on February 12, 2025; repeat chest x-ray in the morning of the day of discharge showed trace left pleural effusion and no pneumothorax Date of Service: Feb 13, 2025 Billing Provider: SAVANNA ESCOTO MD Common Visit Codes: 52044-YRU/OBS DISCH DAY >30min SAVANNA ESCOTO MD Feb 13, 2025 14:41
--- NOTE | 2025-02-13 15:23 | DVHPN2 ---
Progress Note - Dictate Date Seen: Feb 13, 2025 Has the PT tested + for MRSA If YES, has PT been informed?: No Medical Necessity Reason Pt with a Central, PICC or Fol: No vital signs Vital Sign Date Time Temp Pulse Resp B/P (MAP) Pulse Ox O2 Delivery O2 Flow Rate FiO2 02/13/25 14:41 98.6 86 16 95 02/13/25 13:00 139/75 (96) 02/13/25 11:12 Nasal Cannula 3.0 02/13/25 11:12 32 Total Intake and Output 02/12/25 02/12/25 02/13/25 15:00 23:00 07:00 Intake Total 100 ml 1050 ml 800 ml Balance 100 ml 1050 ml 800 ml medications Current Medications Medications Dose Ordered Sig/Caleb Route Start Time Stop Time Status Last Admin Dose Admin Ondansetron HCl 4 mg Q4HP PRN IV 02/01/25 14:45 Docusate Sodium 100 mg BIDPRN PRN PO 02/01/25 14:45 Acetaminophen 650 mg Q6HP PRN PO 02/01/25 14:45 02/12/25 20:08 650 MG Nitroglycerin 0.4 mg Q5MINP PRN SL 02/01/25 14:45 Ipratropium [place] 0.5 mg Q6HWA NEB 02/01/25 18:00 02/13/25 11:11 0.5 MG Albuterol 2.5 mg Q6HWA [facility] 02/01/25 18:00 02/13/25 11:11 2.5 MG Citalopram Hydrobromide 40 mg DAILY PO 02/02/25 10:00 02/13/25 09:12 40 MG Lisinopril 10 mg DAILY PO 02/02/25 10:00 02/13/25 09:14 10 MG Aspirin 81 mg DAILY PO 02/02/25 10:00 02/13/25 09:13 81 MG Vancomycin HCl 0 ml @ 0 mls/hr PER PHARMACY IV 02/03/25 10:15 Nicotine 1 patch DAILY TD 02/04/25 10:00 02/13/25 09:31 1 PATCH Vancomycin HCl 250 ml @ 200 mls/hr Q24H IV 02/03/25 20:00 02/12/25 20:08 200 MLS/HR Levofloxacin/ Dextrose 100 ml @ 66.667 mls/ hr DAILY IV 02/10/25 10:00 02/13/25 09:12 66.667 MLS/HR Melatonin 5 mg HS PO 02/12/25 22:00 02/12/25 21:19 5 MG laboratory and microbiology Laboratory Tests 02/13/25 05:55 Test 02/13/25 05:55 Range/Units Serum Glucose 87 74-106 mg/dL Assessment/Plan impression LLL pneumonia acute hypoxemic resp failure copd, emphysema seen and examined events low oxygen requirements on 2 liters nasal cannula s/p chest tube removal no distress management plan home 02 eval prior to dc from pulm stand point ok to dc f/up with regular PCP Dietary Evaluation Review Comments: Monitor PO intake, lab values, weight trend, and I/O Expected Outcomes/Goals: Intake to meet >75% estimated needs FU 3-5 days Plan discussed with: Patient NANCY GIRALDO MD Feb 13, 2025 15:23
--- NOTE | 2025-02-13 20:55 | DVHPN2 ---
Progress Note - Dictate Date Seen: Feb 13, 2025 Has the PT tested + for MRSA If YES, has PT been informed?: No Medical Necessity Reason Pt with a Central, PICC or Fol: No Subjective Patient was seen and evaluated in follow up. Patient is on 3 LPM NC. Left chest tube has been removed. Chest x-ray showed trace left pleural effusion. Telemetry reviewed. vital signs Vital Sign Date Time Temp Pulse Resp B/P (MAP) Pulse Ox O2 Delivery O2 Flow Rate FiO2 02/13/25 11:18 80 18 97 02/13/25 11:12 Nasal Cannula 3.0 02/13/25 11:12 32 02/13/25 09:14 128/73 02/13/25 09:00 98.5 98.5 Total Intake and Output 02/12/25 02/12/25 02/13/25 15:00 23:00 07:00 Intake Total 100 ml 1050 ml 800 ml Balance 100 ml 1050 ml 800 ml medications Current Medications Medications Dose Ordered Sig/Caleb Route Start Time Stop Time Status Last Admin Dose Admin Ondansetron HCl 4 mg Q4HP PRN IV 02/01/25 14:45 Docusate Sodium 100 mg BIDPRN PRN PO 02/01/25 14:45 Acetaminophen 650 mg Q6HP PRN PO 02/01/25 14:45 02/12/25 20:08 650 MG Nitroglycerin 0.4 mg Q5MINP PRN SL 02/01/25 14:45 Ipratropium [place] 0.5 mg Q6HWA [facility] 02/01/25 18:00 02/13/25 11:11 0.5 MG Albuterol 2.5 mg Q6HWA [facility] 02/01/25 18:00 02/13/25 11:11 2.5 MG Citalopram Hydrobromide 40 mg DAILY PO 02/02/25 10:00 02/13/25 09:12 40 MG Lisinopril 10 mg DAILY PO 02/02/25 10:00 02/13/25 09:14 10 MG Aspirin 81 mg DAILY PO 02/02/25 10:00 02/13/25 09:13 81 MG Vancomycin HCl 0 ml @ 0 mls/hr PER PHARMACY IV 02/03/25 10:15 Nicotine 1 patch DAILY TD 02/04/25 10:00 02/13/25 09:31 1 PATCH Vancomycin HCl 250 ml @ 200 mls/hr Q24H IV 02/03/25 20:00 02/12/25 20:08 200 MLS/HR Levofloxacin/ Dextrose 100 ml @ 66.667 mls/ hr DAILY IV 02/10/25 10:00 02/13/25 09:12 66.667 MLS/HR Melatonin 5 mg HS PO 02/12/25 22:00 02/12/25 21:19 5 MG objective GENERAL: Alert and oriented x 3. No acute distress. EYES: PERRL, EOMI. Anicteric. HENT: Moist mucous membranes. LUNGS: Coarse breath sounds. CARDIOVASCULAR: Regular rate and rhythm. ABDOMEN: Soft, nontender and nondistended. EXTREMITIES: No edema. NEUROLOGIC: No focal neurological deficits. SKIN: Warm, dry. laboratory and microbiology Laboratory Tests 02/13/25 05:55 Test 02/13/25 05:55 Range/Units Serum Glucose 87 74-106 mg/dL Problem List Sepsis with left-sided pneumonia/UTI. Acute on chronic hypoxic respiratory failure. NSTEMI, likely type 2 secondary to above. Rule out structural heart disease. 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 Nicotine dependence. Hypertension. Thyroid disease. Assessment/Plan Continued all current supportive medical care. Tylenol for pain management. Aspirin. IV antibiotics as ordered. Nitro SL. Lisinopril. Nebulized breathing treatments. Additional plan as per the hospital course. A total of 25 minutes was spent reviewing the patient record, examining the patient, making a diagnostic and therapeutic plan, discussing this plan with medical personnel, following up on diagnostic studies and following the patient for clinical stability excluding any and all procedures. At least 50% of this time was spent in direct, [id number] contact. Dietary Evaluation Review Comments: Monitor PO intake, lab values, weight trend, and I/O Expected Outcomes/Goals: Intake to meet >75% estimated needs FU 3-5 days Plan discussed with: Patient CORY ABDULLAHI MD Feb 13, 2025 13:35
== END 2025-02-13 16:30 | disposition home health service (06) | DRG 871 ==
LOC: ER 06:45 → OVERFLOW 14:58 → TELE-CENTR 02-02 15:38
PROVIDERS: ADMIT Internal Medicine; ATTEND Internal Medicine
PROC: 0W9B30Z Drainage of Left Pleural Cavity with Drainage Device, Percutaneous Approach (ICD-10-PCS; principal; 2025-02-09)
DX: A41.50 Gram-negative sepsis, unspecified (principal); I21.A1 Myocardial infarction type 2; J96.21 Acute and chronic respiratory failure with hypoxia; J15.69 Pneumonia due to other Gram-negative bacteria; J86.9 Pyothorax without fistula; J15.9 Unspecified bacterial pneumonia; J90 Pleural effusion, not elsewhere classified; E87.20 Acidosis, unspecified; J44.0 Chronic obstructive pulmonary disease with (acute) lower respiratory infection; N39.0 Urinary tract infection, site not specified; I11.9 Hypertensive heart disease without heart failure; J44.1 Chronic obstructive pulmonary disease with (acute) exacerbation; E87.6 Hypokalemia; E07.9 Disorder of thyroid, unspecified; Z20.822 Contact with and (suspected) exposure to COVID-19; E66.3 Overweight; F17.210 Nicotine dependence, cigarettes, uncomplicated; J43.9 Emphysema, unspecified; R73.9 Hyperglycemia, unspecified; Z79.899 Other long term (current) drug therapy; Z88.0 Allergy status to penicillin; Z90.711 Acquired absence of uterus with remaining cervical stump; Z80.1 Family history of malignant neoplasm of trachea, bronchus and lung; Z68.29 Body mass index [BMI] 29.0-29.9, adult
CPT/HCPCS: 10005; 36415; 36600; 71045; 71250; 76942; 77012; 80048; 80053; 80061; 80202; 81001; 82565; 82805; 83036; 83605; 83615; 83735; 83880; 83986; 84132; 84443; 84484; 85007; 85025; 85027; 85379; 85610; 85730; 87040; 87070; 87205; 87426; 87804; 89051; 93005; 93306; 94640; 96365; 96375; 97163; 97164; 99291; G0378; J1956; J2003; J2250